=== PATIENT | female | born 1935 | race Caucasian/White ===

== ENCOUNTER → 2018-05-20 13:15 | Outpatient (CLI) | payer MEDICARE, SELFPAY ==
--- NOTE | 2018-05-20 | DI.MRI.S_ITS ---
PROCEDURE: MR LUMBAR SPINE WO CON INDICATIONS: INTERVERTEBRAL DISC DEGENERATION TECHNIQUE: Noncontrast sagittal T1 spin echo and T2 fast echo, sagittal STIR, axial T1 and T2 fast spin echo through the lumbar spine. In cases with scoliosis, additional coronal T2 fast spin echo may be performed. COMPARISON: [facility], , L-SPINE 2-3 VIEWS, 06/17/2013, 10:26. FINDINGS: Image quality: Excellent. Alignment and Curvature: 5 lumbar type vertebral wires are present by plain film. There is loss of normal lumbar lordosis Mild grade 1 retrolisthesis of L1 on L2 and L2 on L3. There is mild grade 1 anterolisthesis of L4 on L5 and L5 on S1. Bone Marrow: Marrow is of normal overall signal. No acute vertebral body compression fractures. Moderate reactive signal within the endplates adjacent to the L1-L2 intervertebral disc. Mild reactive signal within the end plates adjacent to the L2-L3 and L5-S1 intervertebral discs. Posterior fusion at L3-L5 has been performed with paired posterior r rods and pedicle screws. Spinal Cord: Conus medullaris terminates at the lower L1 level. Visualized cord demonstrates normal signal and size. Paraspinous Soft Tissues: No paravertebral masses. L1-L2: Severe disc height loss and desiccation. Mild diffuse disc bulge. Mild facet and ligament flavum hypertrophy bilaterally. Mild canal stenosis. Mild foraminal stenosis bilaterally. L2-L3: Moderate disc loss and desiccation. Moderate diffuse disc bulge with superimposed left paracentral protrusion. Mild facet hypertrophy bilaterally. Moderate canal stenosis. Moderate left and mild right foraminal stenosis. There is impingement upon the left L3 nerve root within the lateral recess. L3-L4: Moderate disc height last. Mild disc desiccation and residual diffuse disc bulge. Status post fusion. Bilateral hypertrophy. No significant canal stenosis. Moderate left and mild right foraminal stenosis. L4-L5: Moderate residual diffuse disc bulge, with superimposed small left paracentral protrusion. Status post fusion. No significant canal stenosis. Moderate left and mild right foraminal stenosis. L5-S1: Moderate disc height loss and desiccation. Moderate diffuse disc bulge/osteophyte. Moderate facet hypertrophy bilaterally. Moderate canal stenosis. Severe bilateral foraminal stenosis. Possible L5 nerve root flattening bilaterally. IMPRESSION: 1. Multilevel degenerative disc and facet disease, as well ligament flavum hypertrophy. 2. Status post L3-L5 fusion. 3. Multilevel canal stenoses, worst at L2-L3 and L5-S1, where there are moderate canal stenoses. 4. Left L3 nerve root impingement at the L2-L3 disc space level; recommend correlation with clinical symptoms to ascertain relevance of this finding. 5. Severe bilateral L5-S1 foraminal stenoses, with possible L5 nerve root impingement bilaterally; recommend correlation with clinical symptoms to ascertain relevant of these findings. Dictated by: Huber Landon M.D. on 05/20/2018 at 15:14 Approved by: Huber Landon M.D. on 05/20/2018 at 15:21
== END ==
PROVIDERS: Visit Provider Physician Assistant
DX: M51.36 Other intervertebral disc degeneration, lumbar region (principal); M48.061 Spinal stenosis, lumbar region without neurogenic claudication; Z98.1 Arthrodesis status
CPT/HCPCS: 72148

== ENCOUNTER → 2019-05-27 14:33 | Outpatient (CLI) | payer MEDICARE, SELFPAY ==
--- NOTE | 2019-05-27 | DI.MG.S_ITS ---
BILATERAL DIGITAL SCREENING MAMMOGRAM 3D/2D WITH CAD: 05/27/2019 CLINICAL: Routine screening. Personal history of left breast cancer. Family history of breast cancer. Comparison is made to exams dated: 04/26/2017 mammogram, 04/25/2016 mammogram - [facility], and 10/10/2013 mammogram - [facility]. The tissue of both breasts is extremely dense, which lowers the sensitivity of mammography. Current study was also evaluated with a Computer Aided Detection (CAD) system. There is an irregular equal density asymmetry with an indistinct margin in the right breast posterior depth inferior region seen on the mediolateral oblique view only. There is architectural distortion associated with the asymmetry. No other significant masses, calcifications, or other findings are seen in either breast. IMPRESSION: INCOMPLETE: NEEDS ADDITIONAL IMAGING EVALUATION The irregular equal density asymmetry in the right breast is indeterminate. Mediolateral and spot compression views as well as additional views with possible ultrasound are recommended. This exam was interpreted at Station ID: [id number]. NOTE: For mammograms, a report in lay terms will be sent to the patient. Approximately 15% of breast malignancies will not be visualized mammographically. In the management of a palpable breast mass, a negative mammogram must not discourage biopsy of a clinically suspicious lesion. Electronically Signed By: Ari gaming/[email or web address]:05/27/2019 16:23:33 letter sent: Additional Imaging Needed ACR BI-RADS Category 0: Incomplete [id number]
== END ==
PROVIDERS: Visit Provider Physician Assistant
DX: Z13.21 Encounter for screening for nutritional disorder (principal); Z80.3 Family history of malignant neoplasm of breast; Z85.3 Personal history of malignant neoplasm of breast
CPT/HCPCS: 77063; 77067

== ENCOUNTER → 2019-06-13 09:39 | Outpatient (CLI) | payer MEDICARE, SELFPAY ==
--- NOTE | 2019-06-13 | DI.MG.S_ITS ---
UNILATERAL RIGHT DIGITAL DIAGNOSTIC MAMMOGRAM 3D/2D WITH ADDITIONAL VIEWS: 06/13/2019 CLINICAL: Additional evaluation requested from prior study. Comparison is made to exams dated: 05/27/2019 mammogram, 04/26/2017 mammogram, and 04/25/2016 mammogram - [facility]. The tissue of right breast is heterogeneously dense. This may lower the sensitivity of mammography. There is an irregular low density asymmetry with an indistinct margin in the right breast posterior depth inferior region seen on the mediolateral oblique view only. This is less prominent. No other significant masses or calcifications are seen in the breast. IMPRESSION: INCOMPLETE: NEEDS ADDITIONAL IMAGING EVALUATION The irregular low density asymmetry in the right breast is indeterminate. An ultrasound is recommended. This exam was interpreted at Station ID: [id number]. NOTE: For mammograms, a report in lay terms will be sent to the patient. Approximately 15% of breast malignancies will not be visualized mammographically. In the management of a palpable breast mass, a negative mammogram must not discourage biopsy of a clinically suspicious lesion. Electronically Signed By: Ari gaming/celina:06/13/2019 11:04:07 ACR BI-RADS Category 0: Incomplete [id number]
--- NOTE | 2019-06-13 | DI.US.S_ITS ---
LIMITED ULTRASOUND OF RIGHT BREAST: 06/13/2019 CLINICAL: Patient returns today to evaluate an architectural distortion in the right breast. Comparison is made to exams dated: 06/13/2019 mammogram, 05/27/2019 mammogram, 04/26/2017 mammogram, 04/26/2017 mammogram, 04/25/2016 mammogram - [facility], and 11/05/2014 mammogram - [facility]. Color flow and real-time ultrasound of the right breast lower aspect and retroareolar regions were performed on the areas of interest. There is a 0.9 cm x 0.7 cm x 0.4 cm oval cyst in the right breast central to the nipple in the retroareolar region. This oval cyst displays internal echoes. Color flow imaging demonstrates that there is no vascularity present. There also is a 0.5 cm x 0.3 cm x 0.3 cm oval cyst in the right breast central to the nipple in the retroareolar region. This oval cyst is hypoechoic with internal echoes. Color flow imaging demonstrates that there is no vascularity present. IMPRESSION: PROBABLY BENIGN The 0.9 cm x 0.7 cm x 0.4 cm oval cyst in the right breast central to the nipple in the retroareolar region is consistent with a complicated cyst and is probably benign. The 0.5 cm x 0.3 cm x 0.3 cm oval cyst in the right breast central to the nipple in the retroareolar region likely represents a complicated cyst and is probably benign. There is no abnormality seen in the right breast to correspond with the mammography finding in the lower aspect. A follow-up mammogram and an ultrasound in 3 months is recommended. This exam was interpreted at Station ID: [id number]. Electronically Signed By: Ari gaming/celina:06/13/2019 12:06:47 letter sent: Followup Recommended Ultrasound BI-RADS: 3 Probably benign
== END ==
PROVIDERS: PCP Physician Assistant; Visit Provider Physician Assistant
DX: R92.8 Other abnormal and inconclusive findings on diagnostic imaging of breast (principal); N60.01 Solitary cyst of right breast
CPT/HCPCS: 76642; 77065; G0279

== ENCOUNTER → 2020-11-24 08:34 | Outpatient (CLI) | payer MEDICARE, SELFPAY ==
--- NOTE | 2020-11-24 08:38 | DI.RAD.S_ITS ---
PROCEDURE: XR LUMBAR SPINE MIN 4V INDICATIONS: BACK PAIN TECHNIQUE: 5 views of the lumbar spine were acquired, including bilateral oblique views. COMPARISON: [facility], , L-SPINE 2-3 VIEWS, 06/17/2013, 10:26. FINDINGS: Bones: No fracture. Multilevel degenerative endplate sclerosis and spurring. Diffuse facet arthropathy. L3-L5 posterior spinal fixation. Expected alignment. Interbody cage grafts at L3-L4 and L4-L5. Focal kyphosis centered at the L1 level. Severe narrowing of the remaining lower thoracic and upper lumbar spaces. Levocurvature centered at L1. Soft tissues: Bilateral abdominal soft tissue calcifications projecting the region of the kidneys raising possibility of nephrolithiasis although this could be confirmed with CT KUB. Oblique images: No pars defects. IMPRESSION: Postsurgical and degenerative changes as above. Interval progression in lumbar spondylitic changes since 06/17/13. Dictated by: Navid Anne M.D. on 11/24/2020 at 10:17 Approved by: Navid Anne M.D. on 11/24/2020 at 10:20
== END ==
PROVIDERS: PCP Student in an Organized Health Care Education/Training Program; Referring Provider Physical Medicine & Rehabilitation; Visit Provider Physical Medicine & Rehabilitation
DX: M54.9 Dorsalgia, unspecified (principal); M47.816 Spondylosis without myelopathy or radiculopathy, lumbar region; M51.26 Other intervertebral disc displacement, lumbar region; R26.81 Unsteadiness on feet; Z98.1 Arthrodesis status
CPT/HCPCS: 72110; 99213

== ENCOUNTER → 2020-12-06 14:00 | Outpatient (CLI) | payer MEDICARE, SELFPAY ==
[2020-12-06 15:59] LABS: COVID19 -Nasal RAPID Negative (Negative)
== END ==
PROVIDERS: PCP Student in an Organized Health Care Education/Training Program; Visit Provider Physical Medicine & Rehabilitation
DX: Z20.822 Contact with and (suspected) exposure to COVID-19 (principal)
CPT/HCPCS: 87635

== ENCOUNTER 2020-12-07 12:50 | Outpatient (CLI) | payer MEDICARE, SELFPAY ==
[2020-12-07] VITALS (8 sets, daily range): BP systolic 121–167; BP diastolic 58–74; PULSE 76–94; RESP 12–17; TEMP 36.6; O2SAT 94–99
--- NOTE | 2020-12-07 12:53 | DI.RAD.S_ITS ---
PROCEDURE: PAIN L INTERLAMINAR/CAUDAL INJ INDICATIONS: SPONDYLOSIS COMPARISON: None. FINDINGS: Fluoroscopic spot filming was performed to verify placement of spinal needles at the L5-S1 level(s), as labeled on the films. Appropriate location(s) of the needle tip(s) was confirmed by injection of iodinated contrast. IMPRESSION: Midline L5-S1 needle tip localization for interlaminar epidural steroid injection. Dictated by: Hiren Ventura M.D. on 12/07/2020 at 13:44 Approved by: Hiren Ventura M.D. on 12/07/2020 at 13:44
[2020-12-07] MEDS: MIDAZOLAM 5 MG/5 ML VIAL IV (13:46)
[2020-12-07] MEDS: fentaNYL 100 MCG/2 ML INJ 50 MCG IV (13:50)
[2020-12-07] MEDS: BETAMETHASONE 30 MG/5 ML MDV 6 MG INJ (13:53)
[2020-12-07] MEDS: IOPAMIDOL 15 ML VIAL 3 ML INJ (13:53)
[2020-12-07] MEDS: BUPIVACAINE 0.25% (PF) VIAL 2 ML INJ (13:53)
[2020-12-07] MEDS: DEXAMETHASONE 10 MG/ML VIAL 20 MG INJ (13:54)
--- NOTE | 2020-12-07 14:03 | PM.PROC.IR.1 ---
Date/Time/Diagnoses Date of procedure: 12/07/20 Time of procedure: 14:03 Pre-procedure diagnosis: 1. HNP WITH RADICULAR FEATURES, 2. MULTILEVEL CENTRAL STENOSIS, Post-procedure diagnosis: same Procedure Notes Procedure: 1. FLUOROSCOPICALLY GUIDED CONTRAST CONTROLLED INTERLAMINAR EPIDURAL STEROID INJECTION - L5/S1 Indications: Marlen is referred by Arnav Martines for treatment of Bilateral Foraminal Stenosis L>R LE symptoms. Physician: Huey Simms Total Fluoroscopy time (seconds): 6 Total sedation minutes: 11 Complications: none Procedure in detail & Post-procedure care: FINDINGS Multilevel Central Spinal Stenosis with Nerve Root Compression DESCRIPTION OF PROCEDURE Fluoroscopically guided, contrast-controlled L5/S1 translaminar epidural steroid injection. Following review of allergy and review of potential side effects and complications, including, but not necessarily limited to, infection, allergic reaction, local tissue breakdown, temporary as well as permanent nerve injury, paralysis, stroke and possible , the patient indicated that the patient understood and agreed to proceed. An informed consent document was signed by the patient, witnessed by a nurse, and placed in the patient's chart. Additionally, other treatment options including modalities, medications, and physical therapy were reviewed with the patient. After review of previous anaesthesic history and IV conscious sedation the patient was deemed safe to proceed with today?s procedure with IV conscious sedation as ASA class II designation. Safety time-out was performed to confirm patient ID, procedure to be performed and site of procedure. IV sedation was accomplished with a combination of 2mg of Versed and 50mcg of Fentanyl administered by the RN after DO order, titrated to patient comfort during the course of the procedure while the patient remained responsive to all verbal commands. In the prone position, following sterile prep and drape of the lumbar region, the L5/S1 translaminar space was identified fluoroscopically. The skin was anesthetized via a 25-gauge, 1.5-inch needle with 1% lidocaine solution. At this point, a 22-gauge short bevel spinal needle was atraumatically introduced and advanced under fluoroscopic guidance into the region of the L5/S1 translaminar space. Depth was confirmed on lateral view. Radiological data, including multiple fluoroscopic views of the lumbar spine, reveal a spinal needle at the L5/S1 translaminar space. Lateral views then show placement of the needle in the epidural space. Subsequent views show contrast material flowing superiorly and inferiorly in the epidural space. No vascular or intrathecal uptake is observed. At this point, using loss of resistance technique with saline and air, the epidural space was entered. This was confirmed following negative aspiration with injection of approximately 1.5cc of Isovue 200, showing excellent epidural flow without vascular or intrathecal uptake. At this point, 1 cc of 1% lidocaine solution combined with 3cc or 20mg of dexamethasone and 6mg of betamethasone was injected without incident. The patent tolerated the procedure without signs of symptoms of complications prior to transfer to the recovery area for further monitoring. The patient was then transferred to the recovery area where they were observed for an appropriate period of time after the injection. The patient reported a VAS score of 6 prior to the procedure and a post-procedure VAS of 0. POST OP INSTRUCTIONS The patient was provided a Pain Log to continue to record their response to the target-specific procedure prior to follow-up visit with their referring physician. Additionally, specific post-injection care instructions and a contact number to our office were provided if concerns arise regarding possible complications associated with the procedure are suspected.
== END 2020-12-07 14:22 | disposition home or self-care (01) ==
LOC: RAD 12:52
PROVIDERS: PCP Student in an Organized Health Care Education/Training Program; Referring Provider Physical Medicine & Rehabilitation; Visit Provider Physical Medicine & Rehabilitation
DX: M51.17 Intervertebral disc disorders with radiculopathy, lumbosacral region (principal); M48.07 Spinal stenosis, lumbosacral region
CPT/HCPCS: 62323; 99152; J0702; J1100; J2250; J3010

== ENCOUNTER → 2021-02-15 07:01 | Outpatient (CLI) | payer MEDICARE, SELFPAY ==
[2021-02-15 12:43] LABS: COVID19 -Nasal RAPID Negative (Negative)
== END ==
PROVIDERS: PCP Student in an Organized Health Care Education/Training Program; Visit Provider Physical Medicine & Rehabilitation
DX: Z20.822 Contact with and (suspected) exposure to COVID-19 (principal)
CPT/HCPCS: 87635

== ENCOUNTER 2021-02-17 14:09 | Outpatient (CLI) | payer MEDICARE, SELFPAY ==
[2021-02-17] VITALS (10 sets, daily range): BP systolic 118–157; BP diastolic 64–90; PULSE 77–90; RESP 14–22; TEMP 36.3–36.6; O2SAT 96–100
--- NOTE | 2021-02-17 14:12 | DI.RAD.S_ITS ---
PROCEDURE: PAIN L/S FACET INJ/BLK 1ST EUGENIO COMPARISON: None. INDICATIONS: SPONDYLOSIS FINDINGS: Fluoroscopic spot filming was performed to verify placement of spinal needles at the L2-L3, L5-S1 level(s), as labeled on the films. Appropriate location(s) of the needle tip(s) was confirmed by injection of iodinated contrast. Dictated by: Navid Anne M.D. on 02/17/2021 at 17:28 Approved by: Navid Anne M.D. on 02/17/2021 at 17:29
[2021-02-17] MEDS: fentaNYL 100 MCG/2 ML INJ 50 MCG IV (15:02)
[2021-02-17] MEDS: MIDAZOLAM 5 MG/5 ML VIAL IV (15:02)
[2021-02-17] MEDS: LIDOCAINE 1% 20 ML 10 ML INJ (15:15)
[2021-02-17] MEDS: BUPIVACAINE 0.5% (PF) VIAL 5 ML INJ (15:16)
[2021-02-17] MEDS: IOPAMIDOL 15 ML VIAL 3 ML INJ (15:16)
[2021-02-17] MEDS: BETAMETHASONE 30 MG/5 ML MDV 12 MG INJ (15:16)
--- NOTE | 2021-02-17 15:27 | P.PCN_ITS ---
Date/Time/Diagnoses Date of procedure: 02/17/21 Time of procedure: 15:27 Pre-procedure diagnosis: 1. FACET ARTHROPATHY 2. AXIAL LBP 3. MULTILEVEL DDD Post-procedure diagnosis: same Procedure Notes Procedure: 1. FLUOROSCOPICALLY GUIDED CONTRAST CONTROLLED FACET JOINT INJECTIONS BILATERAL L2/3, L5/S1 Indications: Marlen is referred by DILIP Martinse for treatment of Axial LBP Physician: Huey Simms Total Fluoroscopy time (seconds): 17 Total sedation minutes: 18 Complications: none Procedure in detail & Post-procedure care: FINDINGS Multilevel Facet Arthropathy with Clinically significant axial LBP DESCRIPTION OF PROCEDURE Fluoroscopically guided, contrast-controlled bilateral L2/3, L5/S1 facet joint injections. Following review of allergy and review of potential side effects and complications, including, but not necessarily limited to, infection, allergic reaction, local tissue breakdown, stroke, temporary or permanent nerve injury, paralysis, and possible , the patient indicated that the patient understood and agreed to proceed. An informed consent document was signed by the patient, witnessed by a nurse, and placed in the patient's chart. Additionally, other treatment options including medications, modalities, and physical therapy were reviewed with the patient. After review of previous anaesthesic history and IV conscious sedation the patient was deemed safe to proceed with today's procedure with IV conscious sedation as ASA class II designation. Safety time-out was performed to confirm patient ID, procedure to be performed and site of procedure. IV sedation was accomplished with a combination of 2mg of Versed and 50mcg of Fentanyl was administered by the RN after DO order, titrated to patient comfort during the course of the procedure while the patient remained responsive to all verbal commands. In the prone position, following sterile prep and drape of the lumbar region, the posterior aspect of the right L2/3, L5/S1 facet joints were identified fluoroscopically. The skin was anesthetized via a 25-gauge 1.5inch needle with 1% lidocaine solution into the corresponding facet joints. At this point, a 22- gauge 3.5-inch spinal needle was atraumatically introduced and advanced under fluoroscopic guidance into the corresponding facet joints. Following negative aspiration, injections of approximately 0.2cc of Isovue 200 confirmed interarticular placement without vascular uptake. The identical procedure was then performed at the L2/3, L5/S1 facet joints on the left. Radiological data, including multiple fluoroscopic views of the lumbosacral spine, reveal a spinal needle at the L2/3, L5/S1 facet joints bilaterally. Subsequent views show flow of contrast material both superiorly and inferiorly within the joint space without vascular or intrathecal uptake. At this point, a total of 0.5cc including a mixture of 0.25cc Marcaine and 0.25cc betamethasone was injected without complication into each of the correspo nding facet joints. The patient tolerated the procedure well without signs or symptoms of complications prior to transfer to the recovery area continued monitoring without incident. The patient was then transferred to the recovery area where they were observed for an appropriate period of time after the injection. The patient reported a VAS score of 7 prior to the procedure and a post-procedure VAS of 0. POST OP INSTRUCTIONS The patient was provided a Pain Log to continue to record their response to the target-specific procedure prior to follow-up visit with their referring physician. Additionally, specific post-injection care instructions and a contact number to our office were provided if concerns arise regarding possible complications associated with the procedure are suspected.
== END 2021-02-17 15:36 | disposition home or self-care (01) ==
PROVIDERS: PCP Student in an Organized Health Care Education/Training Program; Referring Provider Physical Medicine & Rehabilitation; Visit Provider Physical Medicine & Rehabilitation
DX: M47.816 Spondylosis without myelopathy or radiculopathy, lumbar region (principal); M47.817 Spondylosis without myelopathy or radiculopathy, lumbosacral region; M51.36 Other intervertebral disc degeneration, lumbar region; M51.37 Other intervertebral disc degeneration, lumbosacral region; M54.5 Low back pain
CPT/HCPCS: 64493; 64494; 99152; J0702; J2250; J3010

== ENCOUNTER → 2021-05-10 07:30 | Outpatient (CLI) | payer MEDICARE, SELFPAY ==
[2021-05-10 13:22] LABS: COVID19 -Nasal RAPID Negative (Negative)
== END ==
PROVIDERS: PCP Student in an Organized Health Care Education/Training Program; Visit Provider Physical Medicine & Rehabilitation
DX: Z20.822 Contact with and (suspected) exposure to COVID-19 (principal)
CPT/HCPCS: 87635; C9803

== ENCOUNTER 2021-05-12 10:43 | Outpatient (CLI) | payer MEDICARE, SELFPAY ==
[2021-05-12] VITALS (8 sets, daily range): BP systolic 149–164; BP diastolic 60–76; PULSE 74–85; RESP 15–21; TEMP 36.4–37.2; O2SAT 93–98
--- NOTE | 2021-05-12 10:46 | DI.RAD.S_ITS ---
PROCEDURE: PAIN SI JOINT INJECTION EUGENIO COMPARISON: [facility], XA, PAIN L/S FACET INJ/BLK 1ST EUGENIO, 02/17/2021, 15:08. INDICATIONS: Bilateral sacroiliac joint injection FINDINGS: On these intraprocedural images, spinal needles are seen overlying the inferior aspect of the each sacroiliac joint. Appropriate position of the tips of the needle was confirmed by injection of a small amount of iodinated contrast. IMPRESSION: Intraprocedural examination within normal limits. Dictated by: Cayetano Negron M.D. on 05/12/2021 at 11:58 Approved by: Cayetano Negron M.D. on 05/12/2021 at 11:58
[2021-05-12] MEDS: MIDAZOLAM 5 MG/5 ML VIAL IV (11:32)
[2021-05-12] MEDS: fentaNYL 100 MCG/2 ML INJ 50 MCG IV (11:32)
[2021-05-12] MEDS: BUPIVACAINE 0.5% (PF) VIAL 2 ML INJ (11:39)
[2021-05-12] MEDS: IOPAMIDOL 15 ML VIAL 3 ML INJ (11:39)
[2021-05-12] MEDS: BETAMETHASONE 30 MG/5 ML MDV 6 MG INJ (11:40)
--- NOTE | 2021-05-12 11:46 | PM.PROC.IR.1 ---
Date/Time/Diagnoses Date of procedure: 05/12/21 Time of procedure: 11:47 Pre-procedure diagnosis: Sacroiliac joint pain/DJD Post-procedure diagnosis: same Procedure Notes Procedure: Fluoroscopic guided contrast controlled bilateral sacroiliac joint injection Indications: Marlen is referred by Arnav Martines for treatment of bilateral sacroiliac joint DJD Physician: Huey Simms Total Fluoroscopy time (seconds): 16 Total sedation minutes: 12 Complications: none Procedure in detail & Post-procedure care: Description of procedure Fluoroscopic guided, contrast controlled bilateral sacroiliac joint injection Following review of allergies and review of potential side effects and complications, including, but not necessarily limited to, infection, allergic reaction, local tissue breakdown, temporary as well as permanent nerve injury, paralysis, stroke and possible , the patient indicated that they understood and agreed to proceed. An informed consent was signed by the patient, witnessed by a nurse, and placed in the patient's chart. Additionally, other treatment options including modalities, medications, and physical therapy were reviewed with the patient. After review of previous anaesthesic history and IV conscious sedation the patient was deemed safe to proceed with today?s procedure with IV conscious sedation as ASA class II designation. Safety time-out was performed to confirm patient ID, procedure to be performed and site of procedure. IV sedation was accomplished with a combination of 2mg Versed and 50mcg of Fentanyl were administered by the RN after DO order, titrated to patient comfort during the course of the procedure while the patient remained responsive to all verbal commands In the prone position following sterile prep and drape of the pelvic region, the hyper lucency on in the inferior aspect of the sacroiliac joint was identified fluoroscopically the skin was anesthetized be a 25 gauge 1.5 inch needle with approximately 2cc of 1% lidocaine solution. At this point, a 22 gauge 3 in spinal needle was atraumatically introduced and advanced under fluoroscopic guidance into the inferior aspect of the right sacroiliac joint. Following negative aspiration, approximately 0.3cc of Isovue-300 was injected confirming intra-articular placement without vascular uptake. Radiographic data, including multiple fluoroscopic views of the pelvis, reveals a spinal needle in the sacroiliac joint hyper lucent zone. Subsequent view show flow contrast tear superiorly and inferiorly within the joint capsule without vascular intrathecal uptake. At this point a total of 1cc of 0.5% Marcaine was combined with 1cc of 6mg of betamethasone was injected without incident. Attention was then refocused the left sacroiliac joint where the procedure was replicated. The procedure tolerated the procedure well without signs or symptoms of complications prior to transfer to the recovery area continued monitoring without incident. The patient was then transferred to the recovery area with a bur observed for an appropriate time after the injection. The patient reverted a vas score of 7 prior to the procedure and post-procedure vas of 1. Postop instructions The patient was provided with a pain like to continue to record the patient's response to the target specific procedure prior to the patient's follow-up visit with the referring physician. Additionally, specific post injection care instructions and a contact number to our office were provided if concerns arise regarding the possible complications associated with procedure are suspected.
== END 2021-05-12 12:05 | disposition home or self-care (01) ==
LOC: RAD 10:46
PROVIDERS: PCP Student in an Organized Health Care Education/Training Program; Referring Provider Physical Medicine & Rehabilitation; Visit Provider Physical Medicine & Rehabilitation
DX: M53.3 Sacrococcygeal disorders, not elsewhere classified (principal); M46.1 Sacroiliitis, not elsewhere classified
CPT/HCPCS: 27096; 99152; J0702; J2250; J3010

== ENCOUNTER → 2021-10-03 10:36 | Outpatient (CLI) | payer MEDICARE, SELFPAY ==
[2021-10-03 13:51] LABS: COVID19 -Nasal RAPID Negative (Negative)
== END ==
PROVIDERS: PCP Student in an Organized Health Care Education/Training Program; Referring Provider Physical Medicine & Rehabilitation; Visit Provider Physical Medicine & Rehabilitation
DX: Z20.822 Contact with and (suspected) exposure to COVID-19 (principal)
CPT/HCPCS: 87635; C9803

== ENCOUNTER 2021-10-04 10:06 | Outpatient (CLI) | payer MEDICARE, SELFPAY ==
[2021-10-04] VITALS (10 sets, daily range): BP systolic 143–163; BP diastolic 65–82; PULSE 80–86; RESP 13–21; TEMP 37.1; O2SAT 95–100
--- NOTE | 2021-10-04 10:08 | DI.RAD.S_ITS ---
PROCEDURE: PAIN L/S FACET INJ/BLK 1ST EUGENIO COMPARISON: [facility], , PAIN L/S FACET INJ/BLK 1ST EGUENIO, 02/17/2021, 15:08. INDICATIONS: SPONDYLOSIS FINDINGS: Fluoroscopic spot filming was performed to verify placement of spinal needles on both sides at the L2, L3, L5, and S1 levels, as labeled on the films. Appropriate location of the needle tips was confirmed by injection of iodinated contrast. IMPRESSION: Intraprocedural examination within normal limits. Dictated by: Cayetano Negron M.D. on 10/04/2021 at 12:49 Approved by: Cayetano Negron M.D. on 10/04/2021 at 12:50
[2021-10-04] MEDS: fentaNYL 100 MCG/2 ML INJ 50 MCG IV (11:20)
[2021-10-04] MEDS: IOPAMIDOL 15 ML VIAL 3 ML INJ (11:26)
[2021-10-04] MEDS: BUPIVACAINE 0.5% (PF) VIAL 5 ML INJ (11:26)
[2021-10-04] MEDS: LIDOCAINE 1% 20 ML INJ (11:27)
[2021-10-04] MEDS: MIDAZOLAM 5 MG/5 ML VIAL IV (11:31)
--- NOTE | 2021-10-04 11:53 | PM.PROC.IR.1 ---
Date/Time/Diagnoses Date of procedure: 10/04/21 Time of procedure: 11:53 Pre-procedure diagnosis: 1. FACET ARTHROPATHY Post-procedure diagnosis: same Procedure Notes Procedure: 1. BILATERAL- L4, L5 and S1 DIAGNOSTIC MB BLOCKS with LA Anesthetic Indications: Marlen is referred by Binta Martines for treatment of Bilateral Axial LBP. Physician: Huey Simms Total Fluoroscopy time (seconds): 18 Total sedation minutes: 19 Complications: none Procedure in detail & Post-procedure care: DESCRIPTION OF PROCEDURE Fluoroscopically guided, contrast-controlled bilateral L2, L3, L5 and S1 medial branch blocks with 0.5cc of 0.5% Marcaine. Following review of allergy and review of potential side effects and complications, including, but not necessarily limited to, infection, allergic reaction, local tissue breakdown, nerve injury, paralysis, stroke and possible , the patient indicated that the patient understood and agreed to proceed. An informed consent document was signed by the patient, witnessed by a nurse, and placed in the patient's chart. After review of previous anaesthesic history and IV conscious sedation the patient was deemed safe to proceed with today's procedure with IV conscious sedation as ASA class II designation. Safety time-out was performed to confirm patient ID, procedure to be performed and site of procedure. IV sedation was accomplished with a combination of 4mg of Versed and 50mcg of Fentanyl was administered by the RN after DO order, titrated to patient comfort during the course of the procedure while the patient remained responsive to all verbal commands In the prone position, following sterile prep and drape of the lumbar region, the right L2, L3, L5 and S1 anatomical location of the medial branch of the dorsal ramus was identified fluoroscopically. Subsequently an anesthetic skin wheal using 1% lidocaine solution was initiated at each of the anatomical spots. Subsequently then a 22-gauge 3.5-inch spinal needle was atraumatically introduced and advanced under fluoroscopic guidance at each of the corresponding sites at the right L2, L3, L5 and S1 MB. After negative aspiration, 0.2cc of Isovue 200 was injected, confirming placement without vascular or intrathecal uptake. Subsequently then 0.5cc of 0.5% Marcaine solution was injected at each of the corresponding sites at the right L2, L3, L5 and S1 medial branch locations. The identical procedure was replicated on the left. The patient tolerated the procedure well without signs or symptoms of complications prior to transfer to the recovery area continued monitoring without incident. Post-procedure, the patient was monitored initiating provocative activities to measure the amount of relief from block of the facetogenic pain. The patient reported a VAS of 7 prior to the procedure and a post-procedure VAS of 1. It has been a pleasure to assist in the diagnostic and therapeutic care of your patient. POST OP INSTRUCTIONS The patient was provided with a Pain Log to complete over the next several hours and subsequent days prior to the patient's follow up with the ordering physician. 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 The patient is aware, was provided, once again, with a Pain Log and will follow up with the referring physician for review and clinical correlation
== END 2021-10-04 12:02 | disposition home or self-care (01) ==
PROVIDERS: PCP Student in an Organized Health Care Education/Training Program; Referring Provider Physical Medicine & Rehabilitation; Visit Provider Physical Medicine & Rehabilitation
DX: M47.816 Spondylosis without myelopathy or radiculopathy, lumbar region (principal); M47.817 Spondylosis without myelopathy or radiculopathy, lumbosacral region
CPT/HCPCS: 64493; 64494; 99152; J2250; J3010

== ENCOUNTER → 2021-12-12 10:51 | Outpatient (CLI) | payer OTHER, SELFPAY ==
[2021-12-12 15:09] LABS: COVID19 -Nasal RAPID Negative (Negative)
== END ==
PROVIDERS: PCP Student in an Organized Health Care Education/Training Program; Visit Provider Physical Medicine & Rehabilitation
DX: Z20.822 Contact with and (suspected) exposure to COVID-19 (principal)
CPT/HCPCS: 87635; C9803

== ENCOUNTER 2021-12-13 10:39 | Outpatient (CLI) | payer OTHER, SELFPAY ==
[2021-12-13] VITALS (13 sets, daily range): BP systolic 136–169; BP diastolic 63–88; PULSE 80–90; RESP 12–23; TEMP 36.2; O2SAT 93–99
--- NOTE | 2021-12-13 10:40 | DI.RAD.S_ITS ---
PROCEDURE: PAIN L/S MED/LAT N RFA BILAT INDICATIONS: Spondylosis COMPARISON: [facility], , PAIN L/S FACET INJ/BLK 1ST EUGENIO, 10/04/2021, 12:26. FINDINGS: Fluoroscopic spot filming was performed to verify placement of spinal needles on both sides at the L2, L3, L5, and S1 levels, as labeled on the films. IMPRESSION: Intraprocedural examination within normal limits. Dictated by: Cayetano Negron M.D. on 12/13/2021 at 12:00 Approved by: Cayetano Negron M.D. on 12/13/2021 at 12:01
[2021-12-13] MEDS: fentaNYL 250 MCG/5 ML INJ 50 MCG IV (11:33)
[2021-12-13] MEDS: BUPIVACAINE 0.5% (PF) VIAL 5 ML INJ (11:36)
[2021-12-13] MEDS: LIDOCAINE 1% 20 ML (11:36)
[2021-12-13] MEDS: fentaNYL 250 MCG/5 ML INJ (11:56)
[2021-12-13] MEDS: MIDAZOLAM 5 MG/5 ML VIAL IV (11:56)
--- NOTE | 2021-12-13 12:26 | P.PCN_ITS ---
Date/Time/Diagnoses Date of procedure: 12/13/21 Time of procedure: 12:26 Pre-procedure diagnosis: 1. RECALCITRANT FACET ARTHROPATHY Post-procedure diagnosis: same Procedure Notes Procedure: 1. BILATERAL L2, L3 AND L5 MEDIAL BRANCH RADIOFREQUENCY NEUROTOMY AND S1 DORSAL RAMUS BRANCH RADIOFREQUENCY NEUROTOMY Indications: Marlen is referred by DILIP Martines for treatment of facet arthropathy. Physician: Huey Simms Total Fluoroscopy time (seconds): 28 Total sedation minutes: 41 Complications: none Procedure in detail & Post-procedure care: DESCRIPTION OF PROCEDURE Bilateral L2, L3 and L5 medial branch radiofrequency neurotomy and bilateral S1 dorsal ramus radiofrequency neurotomy under fluoroscopy with conscious sedation. The patient is well known to this clinic having undergone previous facet in jections with good but temporary relief. The patient has experienced appropriate, concordant relief with previous facet and median branch blocks but the patient's pain has been recalcitrant to further conservative measures. Therefore, based upon the patient's relief and persistent symptoms, the patient is considered an appropriate candidate for facet rhizotomy. All of the patient's questions regarding the risks versus benefits of the procedure, including, but not limited to, bleeding, infection, temporary as well as lasting nerve injury, paralysis, stroke, and , as well treatment alternatives were answered to satisfaction. After obtaining informed consent, denial of pertinent drug allergies, as well as being made aware of the potential risks of bleeding, infection, spinal cord t rauma, paralysis, temporary and permanent nerve damage, seizure, stroke, and possible , the patient was brought to the fluoroscopy suite and positioned prone on the fluoroscopy table. The lumbar region was prepped with Betadine and covered with a fenestrated drape in the usual sterile fashion. Appropriate monitors applied including pulse oximeter, pulse, and blood pressure for regular monitoring throughout the procedure. After review of previous anaesthesic history and IV conscious sedation the patient was deemed safe to proceed with today's procedure with IV conscious sedation as ASA class II designation. Safety time-out was performed toconfirm patient ID, procedure to be performed and site of procedure. IV sedation was accomplished with a combination of 4mg of Versed and 100mcg of Fentanyl administered by the RN after DO order, titrated to patient comfort during the course of the procedure while the patient remained responsive to all verbal commands. After local infiltration using 1% lidocaine, under fluoroscopic guidance, a 10- cm RF insulated needle with a 10-mm active tip was positioned parallel to the junction of the right sacral ala and the superior articulating process where the S1 dorsal ramus resides. Needle placement was confirmed with motor stimulation of .5v on the right which produced local stimulation without radicular component. The stimulation was then increased to 2v with, once again, only local multifidus stimulation without radicular component. The needle was then removed and the identical procedure was performed along the length of the right L5 medial branch with motor stimulation at .7v on the right. The identical procedure was once again performed along the length of the right L3 medial branch with motor stimulation of .5v on the right. The identical procedure was once again performed along the length of the right L2 medial branch with motor stimulation of .5v on the right.The medial branches were then anesthetised with 0.5% Marcaine. This was then followed by two discreet lesions performed at 80 degrees Celsius for 90 seconds each. The identical procedure was repeated on the left. The patient tolerated the procedure well without signs or symptoms of complications prior to transfer to the recovery area continued monitoring without incident. The patient was then transferred to the recovery area where they were observed for an appropriate period of time after the injection. The patient reported a VAS score of 9 prior to the procedure and a post-procedure VAS of 0. POST OP INSTRUCTIONS The patient was provided a Pain Log to continue to record the patient's response to the target-specific procedure prior to the patient's follow-up visit with the referring physician. Additionally, specific post-injection care instructions and a contact number to our office were provided if concerns arise regarding possible complications associated with the procedure are suspected.
== END 2021-12-13 12:35 | disposition hospice, home (50) ==
PROVIDERS: PCP Student in an Organized Health Care Education/Training Program; Referring Provider Physical Medicine & Rehabilitation; Visit Provider Physical Medicine & Rehabilitation
DX: M47.816 Spondylosis without myelopathy or radiculopathy, lumbar region (principal); M47.817 Spondylosis without myelopathy or radiculopathy, lumbosacral region
CPT/HCPCS: 64635; 64636; 99152; 99153; J2250; J3010

== ENCOUNTER → 2022-03-27 09:24 | Outpatient (CLI) | payer OTHER, SELFPAY ==
--- NOTE | 2022-03-27 09:25 | DI.MRI.S_ITS ---
PROCEDURE: MR LUMBAR SPINE WO CON INDICATIONS: Low back TECHNIQUE: Noncontrast sagittal T1 spin echo and T2 fast echo, sagittal STIR, and T2 fast spin echo through the lumbar spine. In cases with scoliosis, additional coronal T2 fast spin echo may be performed. COMPARISON: [facility], MR, MR LUMBAR SPINE WO CON, 05/20/2018, 13:34. FINDINGS: Image quality: Excellent. Alignment and Curvature: Grade 1 anterior spondylolisthesis present at L4-5. Bone Marrow: Discectomy and fusion at L3-4 and L4-5 with posterior zeynep and screw instrumentation as well as decompressive laminectomy at L3-4 and L4-5 remains unchanged. T11 vertebral hemangioma remains unchanged. Spinal Cord: Conus medullaris terminates appropriately L1. There is a posterolateral right defect in the thecal sac at the L4 level with associated CSF-jayla in the soft tissues measuring 1.4 x 1.1 cm, previously 1.0 x 1.0 cm. Additionally, nerve roots are adherent to the thecal sac wall at the L5 level, similar to the prior exam. Paraspinous Soft Tissues: As above. T12-L1: Disc space narrowing with circumferential disc bulge and hypertrophic facet joints results in moderate central stenosis. Moderate bilateral foraminal stenosis is greater on the right. L1-L2: Disc space narrowing with asymmetric right disc bulge and hypertrophic facet joints results in moderate central stenosis. Mild bilateral foraminal stenosis. L2-L3: Disc space narrowing with circumferential disc bulge and hypertrophic facet joints present. There is a left subarticular disc protrusion with inferior migration filling the left lateral recess, similar to the prior exam. Disc fragment now shows increased T2 signal. Moderate central stenosis Moderate left and mild right foraminal stenosis present. L3-L4: Discectomy and fusion with decompressive laminectomy. Posterolateral right CSF-jayla noted as above. No central stenosis. No right and moderate left foraminal stenosis present. L4-L5: Discectomy and fusion present. And decompressive laminectomy noted. No central stenosis. Moderate bilateral foraminal stenosis present. L5-S1: Disc space narrowing and circumferential disc bulge present. No central stenosis. Severe right and left foraminal stenosis present IMPRESSION: 1. Overall, study is similar to the prior exam. Similar degrees of central and foraminal stenosis include moderate central stenosis at L2-3 and severe bilateral foraminal stenosis at L5-S1. 2. Focal subarticular left disc protrusion/extrusion at L2-3 effaces the left lateral recess, similar to the prior. Disc fragment now shows increased T2 signal. 3. L3-4 and L4-5 discectomy and fusion with posterior zeynep and screw instrumentation and decompressive laminectomy unchanged. Defect in the posterolateral thecal sac with associated CSF-jayla in the adjacent soft tissues is slightly larger than the prior exam. 4. 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 Approved by: Sheng Hopkins M.D. on 03/27/2022 at 10:42
== END ==
PROVIDERS: PCP Student in an Organized Health Care Education/Training Program; Referring Provider Physical Medicine & Rehabilitation; Visit Provider Physical Medicine & Rehabilitation
DX: M51.26 Other intervertebral disc displacement, lumbar region (principal); M48.061 Spinal stenosis, lumbar region without neurogenic claudication; M48.07 Spinal stenosis, lumbosacral region; Z98.1 Arthrodesis status
CPT/HCPCS: 72148

== ENCOUNTER → 2022-05-22 11:23 | Outpatient (CLI) | payer OTHER, SELFPAY ==
[2022-05-22 12:25] LABS: COVID19 -Nasal RAPID Negative (Negative)
== END ==
PROVIDERS: PCP Student in an Organized Health Care Education/Training Program; Referring Provider Physical Medicine & Rehabilitation; Visit Provider Physical Medicine & Rehabilitation
DX: Z20.822 Contact with and (suspected) exposure to COVID-19 (principal)
CPT/HCPCS: 87635; C9803

== ENCOUNTER 2022-05-23 15:20 | Outpatient (CLI) | payer OTHER, SELFPAY ==
[2022-05-23] VITALS (24 sets, daily range): BP systolic 138–240; BP diastolic 64–128; PULSE 81–145; RESP 15–28; TEMP 36.6; O2SAT 93–100
--- NOTE | 2022-05-23 15:22 | DI.RAD.S_ITS ---
PROCEDURE: PAIN L INTERLAMINAR/CAUDAL INJ INDICATIONS: SPONDYLOSIS COMPARISON: [facility], XA, PAIN L INTERLAMINAR/CAUDAL INJ, 12/07/2020, 13:49. FINDINGS: Fluoroscopic spot filming was performed to verify placement of spinal needles at the lumbar level(s), as labeled on the films. Appropriate location(s) of the needle tip(s) was confirmed by injection of iodinated contrast. IMPRESSION: Needle placement as above Dictated by: Huber Landon M.D. on 05/23/2022 at 17:00 Approved by: Huber Landon M.D. on 05/23/2022 at 17:00
[2022-05-23] MEDS: BUPIVACAINE 0.25% (PF) VIAL 2 ML INJ (16:05)
[2022-05-23] MEDS: BETAMETHASONE 30 MG/5 ML MDV 6 MG INJ (16:05)
[2022-05-23] MEDS: IOPAMIDOL 15 ML VIAL 3 ML INJ (16:05)
[2022-05-23] MEDS: DEXAMETHASONE 10 MG/ML VIAL 20 MG INJ (16:06)
[2022-05-23] MEDS: MIDAZOLAM 2 MG/2 ML VIAL 4 MG IV (16:11)
[2022-05-23] MEDS: fentaNYL 100 MCG/2 ML INJ IV (16:35)
[2022-05-23] MEDS: diphenhydrAMINE 50 MG/ML VIAL IM (16:35)
[2022-05-23] MEDS: LABETALOL 20 MG/4 ML SYRINGE 5 MG IV ×2 (16:50→17:04)
--- NOTE | 2022-05-23 17:01 | PC.NURSE ---
Patient arrived back to recovery room was a 2max assist with transfer from w/c to chair reports legs feel weak. Rated pain 2/10. Patient was hypertensive and tachy. Quickly became agitated, reports that her legs feel numb and her buttocks itches. She was sinus tachy 130-145. Dr Simms called down to room to assess patient. Patient is clenching hands oxygen 93% RA oxygen applied at 3L. At [address] Simms to administer 100mcg Fentanyl IV and 50MG IV Benadryl. Administer via Jessica SHANNON. Dr Simms at bedside during this time. Patient continues to be tachy and hypertensive order for IV 5mg Labadolol to be given. Patient is A&O able to communicate needs.
--- NOTE | 2022-05-23 17:12 | P.PCN_ITS ---
Date/Time/Diagnoses Date of procedure: 05/23/22 Time of procedure: 17:12 Pre-procedure diagnosis: 1. HNP WITH RADICULAR FEATURES, 2. MULTILEVEL CENTRAL STENOSIS, Post-procedure diagnosis: same Procedure Notes Procedure: 1. FLUOROSCOPICALLY GUIDED CONTRAST CONTROLLED INTERLAMINAR EPIDURAL STEROID INJECTION - L1/2 Indications: Marlen is referred by DILIP Martines for treatment of Bilateral Foraminal Stenosis L>R LE symptoms. Physician: Huey Simms Total Fluoroscopy time (seconds): 14 Total sedation minutes: 21 Complications: none Procedure in detail & Post-procedure care: FINDINGS Multilevel Central Spinal Stenosis with Nerve Root Compression DESCRIPTION OF PROCEDURE Fluoroscopically guided, contrast-controlled L1/2 translaminar epidural steroid injection. Following review of allergy and review of potential side effects and complications, including, but not necessarily limited to, infection, allergic reaction, local tissue breakdown, temporary as well as permanent nerve injury, paralysis, stroke and possible , the patient indicated that the patient understood and agreed to proceed. An informed consent document was signed by the patient, witnessed by a nurse, and placed in the patient's chart. Additionally, other treatment options including modalities, medications, and physical therapy were reviewed with the patient. After review of previous anaesthesic history and IV conscious sedation the patient was deemed safe to proceed with todays procedure with IV conscious sedation as ASA class II designation. Safety time-out was performed to confirm patient ID, procedure to be performed and site of procedure. IV sedation was accomplished with a combination of 4mg of Versed was administered by the RN after DO order, titrated to patient comfort during the course of the procedure while the patient remained responsive to all verbal commands In the prone position, following sterile prep and drape of the lumbar region, the L1/2 translaminar space was identified fluoroscopically. The skin was anesthetized via a 25-gauge, 1.5-inch needle with 1% lidocaine solution. At this point, a 22-gauge short bevel spinal needle was atraumatically introduced and advanced under fluoroscopic guidance into the region of the L1/2 translaminar space. Depth was confirmed on lateral view. Radiological data, including multiple fluoroscopic views of the lumbar spine, reveal a spinal needle at the L1/2 translaminar space. Lateral views then show placement of the needle in the epidural space. Subsequent views show contrast material flowing superiorly and inferiorly in the epidural space. No vascular or intrathecal uptake is observed. At this point, using loss of resistance technique with saline and air, the epidural space was entered. This was confirmed following negative aspiration with injection of approximately 1.5 cc of Isovue 200, showing excellent epidural flow without vascular or intrathecal uptake. At this point, 1 cc of 1% lidoc kenny solution combined with 3cc or 20mg of dexamethasone and 6mg of betamethasone was injected without incident. The patient tolerated the procedure well and was transferred to post procedure recovery room where she developed some lower extremity paresthesias and itchy feeling. She became hypertensive and tachycardic. She remained neurologically intact and responsive to all commands. Her vital signs and symptoms were treated with a combination of labetalol, fentanyl and benadryl IV. Please see the nursing notes for further details of doses and times given. She continued to stabilize and symptoms gradually resolved spontaneously. She was observed for an extended period of time until symptoms fully resolved and she was able to ambulate safely on her own. She was transferred to the care of her daughter Sindi to home in stable condition. POST OP INSTRUCTIONS The patient was provided a Pain Log to continue to record their response to the target-specific procedure prior to follow-up visit with their referring physician. Additionally, specific post-injection care instructions and a contact number to our office were provided if concerns arise regarding possible complications associated with the procedure are suspected.
--- NOTE | 2022-05-23 17:14 | PC.NURSE ---
Patient remains hypertensive and tachycardic - verbal order for an additional dose of Labetolol [address] Simms at bedside. Improvement seen with BP 159/73 and HR 85 SR, Sp02 96% RA. Patient reports improvements in itching and agitation. Pain 0/10 at this time. Patient in general appears more comfortable resting back in recliner. Daughter Sindi updated on patient status. Plan to continue to monitor.
--- NOTE | 2022-05-23 17:21 | PC.NURSE ---
Patient reports BLE no longer numb. Up at the chair with 2 person SBA. Able to march in place but still quite unstable. Patient's baseline mobility is walking with a cane. VS remain stable.
--- NOTE | 2022-05-23 17:44 | PC.NURSE ---
Patient continued to improve. VSS, pain and itching resolved. Up with SBA - baseline mobility and stability. Patient and daughter Sindi instructed to utilize FWW when at home for the night. Dr. Simms gave ok to discharge home with instructions to monitor BP and HR and follow up with PCP.
== END 2022-05-23 17:46 | disposition home or self-care (01) ==
PROVIDERS: PCP Student in an Organized Health Care Education/Training Program; Referring Provider Physical Medicine & Rehabilitation; Visit Provider Physical Medicine & Rehabilitation
DX: M51.16 Intervertebral disc disorders with radiculopathy, lumbar region (principal); M48.061 Spinal stenosis, lumbar region without neurogenic claudication
CPT/HCPCS: 62323; 99152; J0702; J1100; J1200; J2250; J3010; J3490

== ENCOUNTER 2022-08-02 16:57 | Emergency (ER) | payer OTHER, SELFPAY ==
[2022-08-02 17:35] VITALS: BP 146/79; PULSE 84; RESP 18; TEMP 36.8; O2SAT 97; BMI 25.0
[2022-08-02] MEDS: KETOROLAC 10 MG TABLET PO (19:27)
[2022-08-02] MEDS: ACETAMINOPHEN 325 MG TABLET 650 MG PO (19:27)
[2022-08-02] MEDS: BACITRACIN OINT 0.9 GM PCKT 1 APPLIC TOP (19:28)
[2022-08-02] MEDS: TET,DIPH,PERTUSS(ACELL),VAC/PF 0.5 ML SYRINGE IM (19:28)
[2022-08-02] MEDS: LIDOCAINE 2% W/EPI INJ 20 ML INJ (19:29)
[2022-08-02 19:58] VITALS: BP 142/76; PULSE 81; RESP 16; O2SAT 98
--- NOTE | 2022-08-02 20:30 | ED_ITS ---
HPI - Wound/Laceration <SATNAM Abdul - Last Filed: 08/02/22 20:37> General Chief Complaint: Wound/Laceration Stated Complaint: right leg injury/cut Time Seen by Provider: 08/02/22 18:11 Source: patient Mode of arrival: Wheelchair History of Present Illness HPI narrative: This is a 86-year-old female presents to the emergency department with a laceration to her right lower extremity she states from something in her hallway she does not know how this happened. She thinks that she Grieves her leg against say potted plant, she has a 3 cm laceration versus skin tear to her right lower extremity, bleeding is controlled. She denies knowing when her last tetanus was, states it is painful but does not need any medication for it currently. She is not on anticoagulants, denies any numbness or tingling, denies any foreign body. Related Data Home Medications Medication Instructions Recorded Confirmed naproxen sodium 220 mg capsule 220 mg PO BID PRN 11/28/21 11/28/21 (Aleve) acetaminophen 500 mg tablet 500 mg PO Q6H PRN 03/13/22 03/13/22 (Tylenol Extra Strength) lidocaine 4 % topical patch 1 patch topical DAILY PRN 03/13/22 03/13/22 omeprazole 20 mg capsule,delayed 20 mg PO DAILY 03/13/22 03/13/22 release Previous Rx's Medication Instructions Recorded tramadol 50 mg tablet 50 mg PO BID PRN pain #42 tabs 05/15/22 mupirocin 2 % topical ointment 1 applic topical DAILY PRN 08/02/22 laceration #15 grams Allergies Allergy/AdvReac Type Severity Reaction Status Date / Time No Known Drug Allergies Allergy Verified 03/13/22 15:43 Review of Systems <SATNAM Abdul - Last Filed: 08/02/22 20:37> Review of Systems Narrative: Review of systems is negative for acute abnormalities unless otherwise noted in HPI Patient History <SATNAM Abdul - Last Filed: 08/02/22 20:37> Medical History Facet arthropathy, lumbar Gait instability Herniated nucleus pulposus, lumbar Sacral back pain Surgical History H/O: hysterectomy Hx of tonsillectomy Previous back surgery Status post lumbar and lumbosacral fusion by anterior technique Family History Unknown No pertinent family history Social History Smoking Status: Never smoker Smoking Status: Never smoker alcohol intake frequency: 0-2 drinks per day Alcohol type: wine Substance Use Type: does not use Exam <SATNAM Abdul - Last Filed: 08/02/22 20:37> Narrative Exam Narrative: Reviewed vitals signs and nursing notes. MSK: moves all extremities, neurovascularly intact, no weakness, normal tone Skin: brisk capillary refill, without pallor or erythema, skin tear verses superficial laceration with subcutaneous tissue exposed to her right lower extremity approximately 3 cm, laceration is crescent shaped without bleeding. No foreign body, wound was thoroughly irrigated with normal saline, suture repair was completed without complication, no deep injury, no suspected tendon or muscular injury Neuro: normal speech and cognition, A&O x3, ambulatory, clear speech Psych: mental status is grossly normal, congruent mood, normal affect, pleasant and cooperative Initial Vital Signs Initial Vital Signs: Vital Signs Temperature 98.3 F 08/02/22 17:35 Pulse Rate 84 08/02/22 17:35 Respiratory Rate 18 08/02/22 17:35 Blood Pressure 146/79 H 08/02/22 17:35 Pulse Oximetry 97 08/02/22 17:35 Oxygen Delivery Method 08/02/22 17:35 <Irene Johnson DO - Last Filed: 08/03/22 03:55> Initial Vital Signs Initial Vital Signs: Vital Signs Temperature 98.3 F 08/02/22 17:35 Pulse Rate 84 08/02/22 17:35 Respiratory Rate 18 08/02/22 17:35 Blood Pressure 146/79 H 08/02/22 17:35 Pulse Oximetry 97 08/02/22 17:35 Oxygen Delivery Method 08/02/22 17:35 Procedures <SATNAM Abdul - Last Filed: 08/02/22 20:37> Laceration Repair Laceration 1: Site: lower extremity Size (cm): 3 Description: linear and flap Depth: simple, single layer Local Anesthetic: lidocaine 2%, bupivacaine 0.5% and with epi Amount of anesthesia used (mL): 6 Pre-repair: wound explored, irrigated extensively and deep structures intact Skin layer closed with: nylon Skin layer suture size: 5-0 and 6-0 Number of sutures: 12 Technique: simple, interrupted Course <SATNAM Abdul - Last Filed: 08/02/22 20:37> Orders Ordered: Discontinued Medications Acetaminophen (Acetaminophen 325 Mg Tablet) 650 mg PO NOW ONE Stop: 08/02/22 19:02 Last Admin: 08/02/22 19:27 Dose: 650 mg Documented By: CRISTINE Bacitracin (Bacitracin Oint 0.9 Gm Pckt) 1 applic TOP NOW ONE Stop: 08/02/22 19:02 Last Admin: 08/02/22 19:28 Dose: 1 applic Documented By: CRISTINE Diphtheria/Tetanus/Acell Pertussis (Tet,Diph,Pertuss(Acell),Vac/Pf 0.5 Ml Syringe) 0.5 ml IM .ONCE ONE Stop: 08/02/22 19:01 Last Admin: 08/02/22 19:28 Dose: 0.5 ml Documented By: CRISTINE Ketorolac Tromethamine (Ketorolac 10 Mg Tablet) 10 mg PO NOW ONE Stop: 08/02/22 19:01 Last Admin: 08/02/22 19:27 Dose: 10 mg Documented By: CRISTINE Lidocaine/Epinephrine (Lidocaine 1% W/Epi) 1 ml SUBCUT NOW ONE Stop: 08/02/22 18:44 Lidocaine/Epinephrine (Lidocaine 2% W/Epi Inj) 20 ml INJ INTRA-OP ONE Stop: 08/02/22 19:01 Last Admin: 08/02/22 19:29 Dose: 20 ml Documented By: CRISTIEN Vital Signs Vital signs: Vital Signs - 8 hr 08/02/22 19:58 Pulse Rate 81 Respiratory Rate 16 Blood Pressure 142/76 H Pulse Oximetry 98 Oxygen Delivery Method Room Air <Irene Johnson DO - Last Filed: 08/03/22 03:55> Orders Ordered: Discontinued Medications Acetaminophen (Acetaminophen 325 Mg Tablet) 650 mg PO NOW ONE Stop: 08/02/22 19:02 Last Admin: 08/02/22 19:27 Dose: 650 mg Documented By: CRISTINE Bacitracin (Bacitracin Oint 0.9 Gm Pckt) 1 applic TOP NOW ONE Stop: 08/02/22 19:02 Last Admin: 08/02/22 19:28 Dose: 1 applic Documented By: CRISTINE Diphtheria/Tetanus/Acell Pertussis (Tet,Diph,Pertuss(Acell),Vac/Pf 0.5 Ml Syringe) 0.5 ml IM .ONCE ONE Stop: 08/02/22 19:01 Last Admin: 08/02/22 19:28 Dose: 0.5 ml Documented By: CRISTINE Ketorolac Tromethamine (Ketorolac 10 Mg Tablet) 10 mg PO NOW ONE Stop: 08/02/22 19:01 Last Admin: 08/02/22 19: Dose: 10 mg Documented By: CRISTINE Lidocaine/Epinephrine (Lidocaine 1% W/Epi) 1 ml SUBCUT NOW ONE Stop: 08/02/22 18:44 Lidocaine/Epinephrine (Lidocaine 2% W/Epi Inj) 20 ml INJ INTRA-OP ONE Stop: 08/02/22 19:01 Last Admin: 08/02/22 19:29 Dose: 20 ml Documented By: CRISTINE Vital Signs Vital signs: Vital Signs - 8 hr 08/02/22 19:58 Pulse Rate 81 Respiratory Rate 16 Blood Pressure 142/76 H Pulse Oximetry 98 Oxygen Delivery Method Room Air MDM - Wound/Laceration <SATNAM Abdul - Last Filed: 08/02/22 20:37> [facility] Narrative Medical decision making narrative: 86-year-old presents emergency department with a laceration to her right lower extremity, approximately 3 cm, superficial, she is exposing subcutaneous layer. Wound was thoroughly irrigated with normal saline, her tetanus was updated today, wound closure was completed with 12 nylon sutures, patient tolerated well, apply bacitracin and a Band-Aid, encourage patient to cover with mupirocin, a Band-Aid, take Tylenol and or ibuprofen as needed for pain, have her sutures removed in 7-10 days. For any redness or streaking up her leg, I encouraged her to follow-up with her PCP or return emergency department for antibiotics. She is not on anticoagulants, does not have a history of diabetes, thinks that she grazed her leg across something sharp on a potted plant and did not have any bleeding in the emergency department today. Patient is appropriate and amenable to discharge home. Vital signs are stable on repeat examination is unremarkable. Patient has been informed of results. Patient has been given strict return to ER precautions for any new or worsening symptoms. Patient understands to follow up closely with outpatient providers as instructed. Patient understands plan and agrees to discharge home. All questions and concerns answered at this time. Discharge Plan Departure Patient Disposition: Home Clinical Impression: Laceration of leg, right Qualifiers: Encounter type: initial encounter Qualified Code(s): S81.811A - Laceration without foreign body, right lower leg, initial encounter Instructions: Laceration Repair Activity Restrictions/Additional Instructions: *You have been diagnosed with a laceration to your right leg, you received 12 sutures, please apply topical antibiotic ointment and a Band-Aid morning and night to keep your wound covered and apply something to keep it from bleeding on your pants until you have the sutures removed in 7-10 days. If you notice any redness or streaking up your leg, swelling that is out of proportion for the injury, please call your provider and ask for antibiotics or for an evaluation. This should heal in the next 5-7 days, please keep your sutures in until at least 7, have them removed at the walk-in clinic or at home by somebody who is trained. Thank you for trusting us with your care, I hope you feel better soon. Use Tylenol and ibuprofen as needed for your pain. *What to do: *Please continue to take your regular medications as directed. [x ] New medication prescriptions sent to your pharmacy: [ [facility]] [ ] New medication written as a paper prescription [ ] No new medications given *Please follow up with your primary care provider in 2-3 days, call for an appointment. Let them know you were seen in the Emergency Department and that we asked that you be seen for follow-up. We will electronically transmit a record of today's note if your PCP is in our system *If you do not have a primary care provider please contact [phone] to establish care with one of the [facility] primary care providers. *Return to Emergency Department if you should have any new, worsening, or concerning symptoms, such as [fever greater than 101F, chills, worsening pain, persistent vomiting or other bothersome symptoms]. Prescriptions: New mupirocin 2 % ointment 1 applic topical DAILY PRN (Reason: laceration) Qty: 15 0RF No Action tramadol 50 mg tablet 50 mg PO BID PRN (Reason: pain) Qty: 42 1RF naproxen sodium [Aleve] 220 mg capsule 220 mg PO BID PRN omeprazole 20 mg capsule,delayed release(DR/EC) 20 mg PO DAILY acetaminophen [Tylenol Extra Strength] 500 mg tablet 500 mg PO Q6H PRN lidocaine 4 % adhesive patch,medicated 1 patch topical DAILY PRN Referrals: Jessica [place], COLIN [Primary Care Provider] - Visit Report Forms: Patient Portal/API <Irene Johnson DO - Last Filed: 08/03/22 03:55> Cosign ED Attending Raimundoature Attestation: I was immediately available in the department for consultation. Documentation has been reviewed. I agree with assessment and plan.
== END 2022-08-02 19:59 | disposition home or self-care (01) ==
PROVIDERS: Emergency Provider Nurse Practitioner Critical Care Medicine; PCP Student in an Organized Health Care Education/Training Program
DX: S81.811A Laceration without foreign body, right lower leg, initial encounter (principal); W26.9XXA Contact with unspecified sharp object(s), initial encounter; Z23 Encounter for immunization
CPT/HCPCS: 12001; 90471; 99283; 99284; 90715

== ENCOUNTER 2022-08-29 13:40 | Outpatient (CLI) | payer OTHER, SELFPAY ==
[2022-08-29] VITALS (8 sets, daily range): BP systolic 136–170; BP diastolic 67–100; PULSE 85–96; RESP 20–23; TEMP 36.5; O2SAT 94–100
--- NOTE | 2022-08-29 13:41 | DI.RAD.S_ITS ---
PROCEDURE: PAIN L INTERLAMINAR/CAUDAL INJ INDICATIONS: SPONDYLOSIS COMPARISON: [facility], XA, PAIN L INTERLAMINAR/CAUDAL INJ, 05/23/2022, 16:06. FINDINGS: Fluoroscopic spot filming was performed to verify placement of spinal needles at the L5-S1 interlaminar space level(s), as labeled on the films. Appropriate location(s) of the needle tip(s) was confirmed by injection of iodinated contrast. IMPRESSION: Access needle in the L5-S1 interlaminar space for translaminar epidural steroid injection. Dictated by: Heather Newton MD, PhD on 08/29/2022 at 16:12 Approved by: Heather Newton MD, PhD on 08/29/2022 at 16:13
[2022-08-29] MEDS: MIDAZOLAM 2 MG/2 ML VIAL 4 MG IV (14:55)
[2022-08-29] MEDS: BUPIVACAINE 0.25% (PF) VIAL 5 ML SUBCUT (15:01)
[2022-08-29] MEDS: IOPAMIDOL 15 ML VIAL 3 ML INJ (15:01)
[2022-08-29] MEDS: BETAMETHASONE 30 MG/5 ML MDV 6 MG INJ (15:02)
[2022-08-29] MEDS: DEXAMETHASONE 10 MG/ML VIAL 20 MG INJ (15:02)
--- NOTE | 2022-08-29 15:15 | P.PCN_ITS ---
Date/Time/Diagnoses Date of procedure: 08/29/22 Time of procedure: 15:15 Pre-procedure diagnosis: 1. HNP WITH RADICULAR FEATURES, 2. MULTILEVEL CENTRAL STENOSIS, Post-procedure diagnosis: same Procedure Notes Procedure: 1. FLUOROSCOPICALLY GUIDED CONTRAST CONTROLLED INTERLAMINAR EPIDURAL STEROID INJECTION - L5/S1 Indications: Marlen is referred by Dr. [place] for treatment of Bilateral Foraminal Stenosis L>R LE symptoms. Physician: Huey Simms Total Fluoroscopy time (seconds): 9 Total sedation minutes: 9 Complications: none Procedure in detail & Post-procedure care: FINDINGS Multilevel Central Spinal Stenosis with Nerve Root Compression DESCRIPTION OF PROCEDURE Fluoroscopically guided, contrast-controlled L5/S1 translaminar epidural steroid injection. Following review of allergy and review of potential side effects and complications, including, but not necessarily limited to, infection, allergic reaction, local tissue breakdown, temporary as well as permanent nerve injury, paralysis, stroke and possible , the patient indicated that the patient understood and agreed to proceed. An informed consent document was signed by the patient, witnessed by a nurse, and placed in the patient's chart. Additionally, other treatment options including modalities, medications, and physical therapy were reviewed with the patient. After review of previous anaesthesic history and IV conscious sedation the patient was deemed safe to proceed with today?s procedure with IV conscious sedation as ASA class II designation. Safety time-out was performed to confirm patient ID, procedure to be performed and site of procedure. IV sedation was accomplished with a combination of 4mg of Versed administered by the RN after DO order, titrated to patient comfort during the course of the procedure while the patient remained responsive to all verbal commands. In the prone position, following sterile prep and drape of the lumbar region, the L5/S1 translaminar space was identified fluoroscopically. The skin was anesthetized via a 25-gauge, 1.5-inch needle with 1% lidocaine solution. At this point, a 22-gauge short bevel spinal needle was atraumatically introduced and advanced under fluoroscopic guidance into the region of the L5/S1 translaminar space. Depth was confirmed on lateral view. Radiological data, including multiple fluoroscopic views of the lumbar spine, reveal a spinal needle at the L5/S1 translaminar space. Lateral views then show placement of the needle in the epidural space. Subsequent views show contrast material flowing superiorly and inferiorly in the epidural space. No vascular or intrathecal uptake is observed. At this point, using loss of resistance technique with saline and air, the epidural space was entered. This was confirmed following negative aspiration with injection of approximately 1.5cc of Isovue 200, showing excellent epidural flow without vascular or intrathecal uptake. At this point, 1 cc of 1% lidoc kenny solution combined with 3cc or 20mg of dexamethasone and 6mg of betamethasone was injected without incident. The patent tolerated the procedure without signs of symptoms of complications prior to transfer to the recovery area for further monitoring. The patient was then transferred to the recovery area where they were observed for an appropriate period of time after the injection. The patient reported a VAS score of 6 prior to the procedure and a post-procedure VAS of 0. POST OP INSTRUCTIONS The patient was provided a Pain Log to continue to record their response to the target-specific procedure prior to follow-up visit with their referring physician. Additionally, specific post-injection care instructions and a contact number to our office were provided if concerns arise regarding possible complications associated with the procedure are suspected.
== END 2022-08-29 15:44 | disposition home or self-care (01) ==
PROVIDERS: PCP Student in an Organized Health Care Education/Training Program; Referring Provider Physical Medicine & Rehabilitation; Visit Provider Physical Medicine & Rehabilitation
DX: M51.17 Intervertebral disc disorders with radiculopathy, lumbosacral region (principal); M48.07 Spinal stenosis, lumbosacral region
CPT/HCPCS: 62323; J0702; J1100; J2250; J3490

== ENCOUNTER 2024-01-05 09:30 | Inpatient (IN) | payer MEDICARE, SELFPAY ==
[2024-01-05] VITALS (37 sets, daily range): BP systolic 135–199; BP diastolic 62–132; PULSE 59–91; RESP 8–21; TEMP 35.7–36.9; O2SAT 91–100; BMI 29.0; BMI 28.2
--- NOTE | 2024-01-05 | PATH_ITS ---
[facility] Accession Number: [id number] No. of containers..01 Tissue . 01 Material submitted: . colon - RIGHT COLON . 01 Diagnosis: COLON, RIGHT HEMICOLECTOMY: Invasive adenocarcinoma, moderately differentiated, with the following features: . CASE SUMMARY (AJCC - UICC 8): . SPECIMEN Procedure: Right hemicolectomy: . TUMOR: Tumor site: Cecum. Histologic type: Adenocarcinoma. Histologic grade: G2, moderately differentiated. Tumor size Greatest dimension: 8.1 cm. Additional dimensions: 4.4 x 1.1 cm. Tumor extent: Invades through muscularis propria into the pericolonic tissue. Macroscopic tumor perforation: Not identified. Lymphatic and/or vascular invasion: Positive for small vessel invasion. Perineural invasion: Not identified. . MARGINS All margins negative for invasive carcinoma. All margins negative for low-grade and high-grade dysplasia. . REGIONAL LYMPH NODES Tumor present in six regional lymph nodes. Total number of regional lymph nodes examined: 12. Tumor deposits: One tumor deposit identified. . pTNM CLASSIFICATION (AJCC 8TH EDITION): pT category: pT3. pN category: pN2a. . ADDITIONAL FINDINGS: Diverticulosis. . See comment. V 01/10/2024 1354 Local . 01 Comment: Immunohistochemical staining for markers of microsatellite instability (MSI) will be performed, and the results will be reported as an addendum. . 01 Electronically signed: . Ari Anderson MD, Pathologist NPI- [id number] . 01 Gross description: . Received in formalin with two identifiers and right colon, is a segment of right colon with attached ileum measuring 7.5 cm in length and 4.0 cm in average diameter with the right colon measuring 20.4 cm in length by 3.6 cm in average diameter, and attached appendix measuring 5.4 cm in length by 0.9 cm in diameter. The serosa is paz with creeping fat and a firm puckered area adjacent to the ileocecal valve measuring 2.1 cm in greatest dimension. The ileal margin is inked blue, the colon margin is inked black, the mesenteric and radial margins are inked green, and the area of puckered serosa is inked orange. Several small short sutures are located 1.4 cm from the ileal margin, possibly consistent with previous area of defect. The lumen contains paz to brown fecal material, and an exophytic mass is located within the cecum and involving the ileocecal valve measuring 8.1 x 4.4 cm. The mass is widely free from the ileal and colonic margins, and approaches the appendiceal orifice, but not grossly extend into the appendix. The lesion extends beyond the wall and into the pericolonic fat and approaches the orange-inked serosa. The lesion is widely free from the mesenteric margin. The remaining mucosa is paz and velvety with attenuated folds and several small paz nodules measuring up to 0.4 cm in greatest dimension. Diverticula extend up to 0.7 cm deep with no perforations grossly identified. . The appendix has paz, smooth, unremarkable serosa, and sectioning reveals a patent lumen averaging 0.3 cm in diameter. The chavez average 0.2 cm thick with no perforation or lesions identified. . Palpation reveals 13 paz lymph node candidates ranging from 0.2 to 2.1 cm in greatest dimension. . Gluer And Slicer Hand sections are submitted as follows: A1: Rep blue and black margins en face. A2: Rep green margin en face. A3: Lesion with extension into the adjacent adipose. A4-A5: Lesion with extension to orange-inked serosa. A6: Lesion to normal ileum. A7: Lesion to normal colon. A8: Additional small nodules. A9: Normal colon diverticula and normal ileum. A10: Appendix to include one-half of the bisected distal tip, cross section, and longitudinal section of appendiceal orifice. A11: Rep single lymph node candidate. A12: Rep single lymph node candidate. A13: One-half of bisected single lymph node candidate. A14: Single bisected lymph node candidate. A15: Four intact lymph node candidates. A16: Five intact lymph node candidates. ([id number]) /MRV 01/08/2024 1141 Local . 01 Pathologist provided ICD-10: C18.0 . 01 CPT . 118242, [id number], [id number] Specimen Comment: A courtesy copy of this report has been sent to [phone] Performed at: 01 [facility] [address] [place] [address], [place], [place] [id number] MD Ari Anderson MD Phone: [phone]
[2024-01-05] MEDS: SODIUM CHLORIDE 0.9% 1,000 ML 500 ML IV (09:55)
--- NOTE | 2024-01-05 10:02 | ED.ABDPAIN ---
HPI - Abdominal Pain General Chief Complaint: Abdominal Pain Stated Complaint: V/D/cramping T-14 Time Seen by Provider: 01/05/24 09:41 Source: patient Mode of arrival: Wheelchair History of Present Illness HPI narrative: Patient is a 88-year-old female who presents today with ongoing abdominal pain. She reports that it has been happening off and on for awhile she occasionally has diarrhea and vomiting. This morning she had pretty intense cramping and vomited 5 times. Daughter reports that she has not eating as much and that she is probably lost weight over the past couple of weeks. Patient says that she does have some shortness of breath with exertion but is really not unchanged today and not a complaint today. She has absolutely no sort of chest pain. She has not on anticoagulation. She takes no medication, head occasionally sees a PCP. Related Data Home Medications Medication Instructions Recorded Confirmed acetaminophen 500 mg tablet 500 mg PO Q6H PRN Pain (Scale 03/13/22 01/05/24 (Tylenol Extra Strength) Score 1-3) mirabegron 25 mg tablet,extended 25 mg PO DAILY 08/16/22 01/05/24 release 24 hr (Myrbetriq) Allergies Allergy/AdvReac Type Severity Reaction Status Date / Time No Known Drug Allergies Allergy Verified 01/05/24 12:28 Patient History Medical History Osteoporosis Sacral back pain Gait instability Herniated nucleus pulposus, lumbar Facet arthropathy, lumbar Surgical History Status post lumbar and lumbosacral fusion by anterior technique H/O: hysterectomy Hx of tonsillectomy Previous back surgery Family History Unknown No pertinent family history Social History Smoking Status: Never smoker Smoking Status: Never smoker alcohol intake frequency: 0-2 drinks per day Alcohol type: wine Substance Use Type: does not use Exam Initial Vital Signs Initial Vital Signs: Vital Signs Pulse Rate 88 01/05/24 09:38 Blood Pressure 199/79 H 01/05/24 09:38 Pulse Oximetry 98 01/05/24 09:38 GENERAL: Alert 88-year-old female and in no acute distress. HEENT: Head atraumatic,EOMI, pupils reactive, face symmetric, moist mucous membranes CARDIOVASCULAR: Regular rate and rhythm without murmurs, rubs or gallops. RESPIRATORY: Breath sounds equal bilaterally, no wheezes rales or rhonchi. ABDOMEN: Soft, mildly distended no guarding no rebound EXTREMITIES: Normal range of motion, no clubbing or edema. Neurovascularly intact NEUROLOGICAL: Alert and oriented x4 SKIN: Warm, dry, no laceration, no petechiae, no rashes or lesions. Course Orders Ordered: ED Orders 01/05/24 09:40 EKG-12 Lead Stat 01/05/24 09:57 Complete Blood Count AUTO DIFF Stat Comprehensive Metabolic Panel Stat Lipase Stat Troponin & CK Cardiac Panel Stat 01/05/24 10:14 CT abdomen pelvis w con Stat 01/05/24 12:00 Urinalysis and Microscopic Stat Urine Culture Stat 01/05/24 13:13 Education, smoking cessation ONGOING 01/05/24 13:15 Consult to Discharge Planning Routine Consult to Occupational Therapy Evaluate & Treat Consult to Physical Therapy Evaluate & Treat Acetaminophen (Acetaminophen 325 Mg Tablet) 650 mg PO Q6H PRN PRN Reason: Fever/Mild Pain (1-3) Hydromorphone HCl (Hydromorphone 0.5 Mg Inj) 0.5 mg IV Q2H PRN PRN Reason: Pain, Severe (7-10) Lactated Ringer's (Lactated Ringers) 1,000 mls @ 100 mls/hr IV CONT SHIRAZ Piperacillin Sod/Tazobactam (Sod 4.5 gm/ Sodium Chloride) 100 mls @ 200 mls/hr IV NOW ONE Stop: 01/05/24 14:14 Lactated Ringer's (Lactated Ringers) 1,000 mls @ 42 mls/hr IV CONT SHIRAZ Ibuprofen (Ibuprofen 600 Mg Tablet) 600 mg PO Q6H PRN PRN Reason: Fever/Mild Pain (1-3) Morphine Sulfate (Morphine 2 Mg/Ml Inj) 2 mg IV Q4HR PRN PRN Reason: Pain, Moderate (4-6) Last Admin: 01/05/24 13:04 Dose: 2 mg Documented By: LUDY Naloxone HCl (Naloxone 0.4 Mg/Ml Vial) 0.2 mg IV Q2MIN PRN PRN Reason: Opiate Reversal Ondansetron HCl (Ondansetron 4 Mg Odt) 4 mg PO NOW PRN PRN Reason: Nausea And Vomiting Ondansetron HCl (Ondansetron 4 Mg/2 Ml Inj) 4 mg IV NOW PRN PRN Reason: Nausea And Vomiting Last Admin: 01/05/24 10:14 Dose: 4 mg Documented By: PK Oxycodone HCl (Oxycodone Ir 5 Mg Tablet) 5 mg PO Q3H PRN PRN Reason: Pain, Moderate (4-6) Discontinued Medications Sodium Chloride (Normal Saline 0.9%) 1,000 mls @ 500 mls/hr IV BOLUS ONE Stop: 01/05/24 11:39 Last Infusion: 01/05/24 12:02 Dose: Infused Documented By: Admin: 01/05/24 09:55 Dose: 500 mls/hr Documented By: AMINA Ceftriaxone Sodium 1,000 mg/ (Sodium Chloride) 100 mls @ 200 mls/hr IV NOW ONE Stop: 01/05/24 12:21 Last Admin: 01/05/24 12:59 Dose: 200 mls/hr Documented By: LUDY Piperacillin Sod/Tazobactam (Sod 3.375 gm/ Sodium Chloride) 100 mls @ 25 mls/hr IV Q8H SHIRAZ Stop: 01/05/24 13:46 Morphine Sulfate (Morphine 2 Mg/Ml Inj) 2 mg IV NOW ONE Stop: 01/05/24 10:15 Last Admin: 01/05/24 10:38 Dose: 2 mg Documented By: PRASANNA Vital Signs Vital signs: Vital Signs - 8 hr 01/05/24 09:38 01/05/24 09:38 01/05/24 09:41 Temperature 97.7 F Pulse Rate 88 88 Respiratory Rate 18 Blood Pressure 199/79 H 199/79 H Pulse Oximetry 98 99 Oxygen Delivery Method Room Air 01/05/24 10:00 01/05/24 10:01 01/05/24 10:01 Temperature Pulse Rate 90 90 Respiratory Rate 16 Blood Pressure 163/132 H Pulse Oximetry 95 93 Oxygen Delivery Method Room Air 01/05/24 10:34 01/05/24 10:35 01/05/24 10:35 Temperature Pulse Rate 91 H 91 H Respiratory Rate Blood Pressure 184/84 H Pulse Oximetry 95 95 Oxygen Delivery Method 01/05/24 11:00 01/05/24 11:00 01/05/24 11:30 Temperature Pulse Rate 80 Respiratory Rate Blood Pressure 161/72 H 161/71 H Pulse Oximetry 95 Oxygen Delivery Method 01/05/24 11:30 Temperature Pulse Rate 76 Respiratory Rate 14 Blood Pressure Pulse Oximetry 95 Oxygen Delivery Method Room Air MDM - Abdominal Pain Lab Data 01/05/24 09:57 01/05/24 09:57 Labs: Lab Results 01/05/24 01/05/24 Range/Units 09:57 12:00 WBC 11.0 (4.5-11.0) X10^3/uL RBC 4.51 (4.0-5.2) X10^6/uL Hgb 13.7 (12.0-16.0) g/dL Hct 41.0 (36-46) % MCV 91.0 (80-100) fL MCH 30.4 (26-34) PG MCHC 33.5 (30-36) % RDW 13.0 (11.6-14.8) % Plt Count 277 (150-400) X10^3/uL Neut % (Auto) 70.7 (50-75) % Lymph % (Auto) 13.4 L (25-40) % [place] % (Auto) 12.8 (3-14) % Eos % (Auto) 2.6 (2-4) % Baso % (Auto) 0.5 (0-2) % Neut # (Auto) 7800 H (5643-7602) /uL Lymph # (Auto) 1500 (9233-1730) /uL [place] # (Auto) 1400 H (0-900) /uL Eos # (Auto) 300 (0-450) /uL Baso # (Auto) 100 (0-100) /uL Sodium 137 (137-145) mmol/L Potassium 4.6 (3.4-5.1) mmol/L Chloride 104 (98-107) mmol/L Carbon Dioxide 29 (22-32) mmol/L BUN 11 (7-17) mg/dL Creatinine 0.51 L (0.52-1.04) mg/dL Estimated GFR > 60 (>60) mL/min BUN/Creatinine Ratio 21.6 (6-22) Glucose 117 H (80-110) mg/dL Calcium 9.3 (8.4-10.2) mg/dL Total Bilirubin 0.5 (0.2-1.3) mg/dL AST 31 (14-36) IU/L ALT 16 (<35) IU/L Alkaline Phosphatase 96 (38-126) U/L Total Creatine Kinase 50 (30-135) U/L Troponin I < 0.012 (0.01-0.034) ng/mL Total Protein 7.1 (6.3-8.2) g/dL Albumin 4.0 (3.5-5.0) g/dL Globulin 3.1 (1.7-4.1) g/dL Albumin/Globulin Ratio 1.3 (1.0-2.8) Lipase 53 (23-300) U/L Urine Color Yellow Urine Appearance Sl cloudy Urine pH 5.5 (4.5-8.0) Ur Specific [place] 1.015 (1.000-1.035) Urine Protein Trace H (Negative) Urine Glucose (UA) Negative (Negative) g/dL Urine Ketones Negative (NEGATIVE) Urine Occult Blood Negative (Negative) Urine Nitrate Positive H (Negative) Urine Bilirubin Negative (NEGATIVE) Urine Urobilinogen 0.2 (0.2) E.U./dL Ur Leukocyte Esterase Negative (NEGATIVE) Urine RBC 1-5/hpf (0-5/HPF) Urine WBC 1-5/hpf (0-5/HPF) Ur Squamous Epith Cells 0-1 /hpf (0-5/HPF) Amorphous Sediment 1+ Urine Bacteria Many (>30) H (None) Ur Culture Indicated? Specimen cultured Vol Urine Centrifuged 10ml (spun) Imaging Data CT scan - abdomen/pelvis: Radiologist's Impression: PROCEDURE: CT ABDOMEN PELVIS W CON INDICATIONS: pain vomiting TECHNIQUE: After the administration of intravenous contrast, axial sections acquired from the lung bases to the pubic symphysis. Coronal and sagittal reformats were performed. For radiation dose reduction, the following was used: automated exposure control, adjustment of mA and/or kV according to patient size. COMPARISON: None. FINDINGS: Lower thorax: The lung bases are clear. Heart size normal. No hiatal hernia. Liver: Large irregular hepatic mass lesion measures up to Biliary system: Calcified stones noted in the lumen of the gallbladder. No pericholecystic inflammatory change. No intra or extrahepatic bile duct dilation. Pancreas: Unremarkable without mass or inflammation evident. Spleen: Normal in size and density. Adrenals: Normal morphology and density. Reproductive system: Unremarkable as visualized. Urinary system: Normal renal size and attenuation. No renal calculi, hydronephrosis, or solid mass present. Urinary bladder unremarkable. Gastrointestinal system: Irregular cecal mass lesion with wall thickening enhancement measures overall 5.6 x 4.1 cm. Colon appears relatively decompressed, and the distal ileum and small bowel is distended measuring up to 2.7 cm with fecalization of bowel contents. Multiple diverticula arise from the sigmoid colon without evidence of diverticulitis. Appendix: No findings to suggest acute appendicitis. Peritoneal spaces: Right lower quadrant adenopathy measures up to 1.8 x 2.5 cm adjacent to the cecum. No free air. Small amount of free fluid in the pelvis. Vasculature: The IVC, aorta and iliac vasculature are unremarkable. Abdominal wall: Abdominal wall intact without evidence of ventral or inguinal hernias. Musculoskeletal: Normal bone mineralization. Degenerative disc disease and arthropathy noted in lower lumbar spine. Lower lumbar spine decompression, instrumentation and decompression noted. Severe central stenosis L2-3. No acute fractures. IMPRESSION: Cecal colon cancer, hepatic metastasis, and early small-bowel obstruction. Cecal mass lesion covers the ileocecal valve results in distension and stasis of the distal small bowel. Right lower quadrant mesenteric adenopathy and irregular large hepatic mass lesion consistent with metastatic disease Additional chronic findings include degenerative disc disease with severe central stenosis, advanced sigmoid diverticulosis, cholelithiasis without cholecystitis. Approved by: Sheng Hopkins M.D. on 01/05/2024 at 10:10 ECG Data Attestation: I personally reviewed and interpreted this ECG as follows: Interpretation: Sinus rhythm rate 84 TX interval 154 QRS 80 QTC 399 artifact MDM Narrative Medical decision making narrative: Patient 88-year-old female without significant past medical history presenting today with ongoing abdominal pain off on for awhile. Had increasing nausea vomiting today. However Zofran seems to have helped. Blood work: WBC 11.0, hemoglobin 13.7, hematocrit 41.0, platelets 277, sodium 137, potassium 4.6, chloride 104, carbon dioxide 29, BUN 11, creatinine 0.5, glucose 117, bilirubin 0.5, AST 31, ALT 16 troponin negative Imaging reviewed: Cecal colon cancer with hepatic metastasis with early small-bowel obstruction Patient has gotten some IV fluids pain medication nausea medication. She has not had any further vomiting. She overall appears well despite CT findings. 1130 Dr. Fermin on-call surgery updated patient's symptoms test results reviewed CT in ED to see and evaluate patient. States that patient would likely benefit from palliative surgery Discharge Plan Departure Patient Disposition: Admitted As Inpatient Clinical Impression: Small bowel obstruction, Metastatic colon cancer to liver Admit Date/Time: 01/05/24 13:19 Admit Provider: Naveen Fermin
[2024-01-05 10:04] LABS: Add Manual Diff / Slide Review NO; Basophils Absolute Auto 100 /uL (0-100); Basophils Percent Auto 0.5 % (0-2); Eosinophils Absolute Auto 300 /uL (0-450); Eosinophils Percent Auto 2.6 % (2-4); Hemoglobin 13.7 g/dL (12.0-16.0); Lymphocytes Absolute Auto 1500 /uL (1100-4500); Lymphocytes Percent Auto 13.4 % (25-40); Mean Corpuscular HGB Conc 33.5 % (30-36); Mean Corpuscular Hemoglobin 30.4 PG (26-34); Monocytes Absolute Auto 1400 /uL (0-900); Monocytes Percent Auto 12.8 % (3-14); Neutrophils Absolute Auto 7800 /uL (1500-7000); Neutrophils Percent Auto 70.7 % (50-75); Platelet Count 277 X10^3/uL (150-400); Red Blood Cell Count 4.51 X10^6/uL (4.0-5.2)
[2024-01-05] MEDS: ONDANSETRON 4 MG/2 ML INJ IV (10:14)
--- NOTE | 2024-01-05 10:14 | DI.CT.S_ITS ---
PROCEDURE: CT ABDOMEN PELVIS W CON INDICATIONS: pain vomiting TECHNIQUE: After the administration of intravenous contrast, axial sections acquired from the lung bases to the pubic symphysis. Coronal and sagittal reformats were performed. For radiation dose reduction, the following was used: automated exposure control, adjustment of mA and/or kV according to patient size. COMPARISON: None. FINDINGS: Lower thorax: The lung bases are clear. Heart size normal. No hiatal hernia. Liver: Large irregular hepatic mass lesion measures up to Biliary system: Calcified stones noted in the lumen of the gallbladder. No pericholecystic inflammatory change. No intra or extrahepatic bile duct dilation. Pancreas: Unremarkable without mass or inflammation evident. Spleen: Normal in size and density. Adrenals: Normal morphology and density. Reproductive system: Unremarkable as visualized. Urinary system: Normal renal size and attenuation. No renal calculi, hydronephrosis, or solid mass present. Urinary bladder unremarkable. Gastrointestinal system: Irregular cecal mass lesion with wall thickening enhancement measures overall 5.6 x 4.1 cm. Colon appears relatively decompressed, and the distal ileum and small bowel is distended measuring up to 2.7 cm with fecalization of bowel contents. Multiple diverticula arise from the sigmoid colon without evidence of diverticulitis. Appendix: No findings to suggest acute appendicitis. Peritoneal spaces: Right lower quadrant adenopathy measures up to 1.8 x 2.5 cm adjacent to the cecum. No free air. Small amount of free fluid in the pelvis. Vasculature: The IVC, aorta and iliac vasculature are unremarkable. Abdominal wall: Abdominal wall intact without evidence of ventral or inguinal hernias. Musculoskeletal: Normal bone mineralization. Degenerative disc disease and arthropathy noted in lower lumbar spine. Lower lumbar spine decompression, instrumentation and decompression noted. Severe central stenosis L2-3. No acute fractures. IMPRESSION: Cecal colon cancer, hepatic metastasis, and early small-bowel obstruction. Cecal mass lesion covers the ileocecal valve results in distension and stasis of the distal small bowel. Right lower quadrant mesenteric adenopathy and irregular large hepatic mass lesion consistent with metastatic disease Additional chronic findings include degenerative disc disease with severe central stenosis, advanced sigmoid diverticulosis, cholelithiasis without cholecystitis. Approved by: Sheng Hopkins M.D. on 01/05/2024 at 10:10
[2024-01-05 10:19] LABS: Alanine Aminotransferase 16 IU/L (<35); Albumin Globulin Ratio 1.3 (1.0-2.8); Alkaline Phosphatase 96 U/L (38-126); Aspartate Aminotransferase 31 IU/L (14-36); BUN Creatinine Ratio 21.6 (6-22); Bilirubin Total 0.5 mg/dL (0.2-1.3); Blood Urea Nitrogen 11 mg/dL (7-17); Calcium 9.3 mg/dL (8.4-10.2); Carbon Dioxide 29 mmol/L (22-32); Chloride 104 mmol/L (98-107); Creatine Kinase 50 U/L (30-135); Estimated Glomerular Filt Rate > 60 mL/min (>60); Globulin 3.1 g/dL (1.7-4.1); Glucose 117 mg/dL (80-110); HEMOLYSIS 19 (0-50); Lipase 53 U/L (23-300); Potassium 4.6 mmol/L (3.4-5.1); Sodium 137 mmol/L (137-145); Total Protein 7.1 g/dL (6.3-8.2)
[2024-01-05 10:30] LABS: Troponin I < 0.012 ng/mL (0.01-0.034)
[2024-01-05] MEDS: MORPHINE 2 MG/ML INJ IV ×2 (10:38→13:04)
[2024-01-05 12:06] LABS: Appearance Urine UA SL CLOUDY; Bilirubin Urine UA NEGATIVE (NEGATIVE); Color Urine UA YELLOW; Glucose Urine UA NEGATIVE (Negative); Ketones Urine UA NEGATIVE (NEGATIVE); Leukocyte Esterase Urine UA NEGATIVE (NEGATIVE); Nitrite Urine UA POSITIVE (Negative); Occult Blood Urine UA NEGATIVE (Negative); Protein Urine UA TRACE (Negative); Specific Gravity Urine UA 1.015 (1.000-1.035); Urobilinogen Urine UA 0.2 E.U./dL (0.2)
[2024-01-05 12:08] LABS: pH Urine UA 5.5 (4.5-8.0)
[2024-01-05 12:12] LABS: Bacteria Urine Many (>30); RBC Urine 1-5/HPF (0-5/HPF); Squamous Epithelial Cell Urine 0-1 /HPF (0-5/HPF); Urine Volume 10mL (spun); WBC Urine 1-5/HPF (0-5/HPF)
[2024-01-05 12:13] LABS: Amorphous Sediment Urine 1+; Culture Indicated Urine Specimen Cultured
[2024-01-05] MEDS: cefTRIAXone 1,000 MG in SODIUM CHLORIDE 0.9% 100 ML 200 MG IV (12:59)
--- NOTE | 2024-01-05 13:16 | P.HP_ITS ---
History of Present Illness History of Present Illness Date Patient Seen: 01/05/24 Time Patient Seen: 13:16 Chief complaint: V/D/cramping T-14 Narrative: Marlen is an 88-year-old generally healthy woman who presents to [facility] Emergency Department with abdominal pain and emesis. For the past several months she has been having cramping abdominal pain which became acutely worse today. CT abdomen pelvis demonstrates a large obstructing cecal mass with mesenteric lymphadenopathy and hepatic metastasis. Previous malignancy includes breast cancer status post lumpectomy and radiation no chemotherapy. Previous abdominal surgery significant for hysterectomy and appendectomy. She has chronic back pain status post lumbar fusion. She lives alone generally manages her activities of daily living independently. She ambulates with a walker at home secondary to back pain. Her daughter who is with her in the emergency department today lives next door. [facility] Medical History Osteoporosis Sacral back pain Gait instability Herniated nucleus pulposus, lumbar Facet arthropathy, lumbar Surgical History Status post lumbar and lumbosacral fusion by anterior technique H/O: hysterectomy Hx of tonsillectomy Previous back surgery Family History Unknown No pertinent family history Social History Smoking Status: Never smoker Meds Home Medications and Allergies Home Medications Medication Instructions Recorded Confirmed Type acetaminophen 500 mg tablet 500 mg PO Q6H PRN Pain (Scale 03/13/22 01/05/24 History (Tylenol Extra Strength) Score 1-3) mirabegron 25 mg tablet,extended 25 mg PO DAILY 08/16/22 01/05/24 History release 24 hr (Myrbetriq) Allergies Allergy/AdvReac Type Severity Reaction Status Date / Time No Known Drug Allergies Allergy Verified 01/05/24 12:28 Exam Vital Signs (past 8 hours): - 01/05/24 09:38 01/05/24 09:38 01/05/24 09:41 Temperature 97.7 F Pulse Rate 88 88 Respiratory Rate 18 Blood Pressure 199/79 H 199/79 H Pulse Oximetry 98 99 Oxygen Delivery Method Room Air 01/05/24 10:00 01/05/24 10:01 01/05/24 10:01 Temperature Pulse Rate 90 90 Respiratory Rate 16 Blood Pressure 163/132 H Pulse Oximetry 95 93 Oxygen Delivery Method Room Air 01/05/24 10:34 01/05/24 10:35 01/05/24 10:35 Temperature Pulse Rate 91 H 91 H Respiratory Rate Blood Pressure 184/84 H Pulse Oximetry 95 95 Oxygen Delivery Method 01/05/24 11:00 01/05/24 11:00 01/05/24 11:30 Temperature Pulse Rate 80 Respiratory Rate Blood Pressure 161/72 H 161/71 H Pulse Oximetry 95 Oxygen Delivery Method 01/05/24 11:30 Temperature Pulse Rate 76 Respiratory Rate 14 Blood Pressure Pulse Oximetry 95 Oxygen Delivery Method Room Air Oxygen Delivery Method Room Air Narrative Exam Narrative: GENERAL: A well nourished, well developed elderly woman, resting comfortably, in no acute distress. HEENT: Normocephalic, atraumatic. No scleral icterus CHEST: Rising symmetrically. No audible wheezes CARDIOVASCULAR: Warm and well perfused. Regular rate ABDOMEN: Tender right lower quadrant with moderate abdominal distention no peritonitis. EXTREMITIES: Normal tone and without edema. NEUROLOGIC: Moving all extremities spontaneously. No gross motor deficits. Objective Labs 01/05/24 09:57 01/05/24 09:57 Labs: Laboratory Results - last 24 hr 01/05/24 01/05/24 09:57 12:00 WBC 11.0 RBC 4.51 Hgb 13.7 Hct 41.0 MCV 91.0 MCH 30.4 MCHC 33.5 RDW 13.0 Plt Count 277 Neut % (Auto) 70.7 Lymph % (Auto) 13.4 L [place] % (Auto) 12.8 Eos % (Auto) 2.6 Baso % (Auto) 0.5 Neut # (Auto) 7800 H Lymph # (Auto) 1500 [place] # (Auto) 1400 H Eos # (Auto) 300 Baso # (Auto) 100 Sodium 137 Potassium 4.6 Chloride 104 Carbon Dioxide 29 BUN 11 Creatinine 0.51 L Estimated GFR > 60 BUN/Creatinine Ratio 21.6 Glucose 117 H Calcium 9.3 Total Bilirubin 0.5 AST 31 ALT 16 Alkaline Phosphatase 96 Total Creatine Kinase 50 Troponin I < 0.012 Total Protein 7.1 Albumin 4.0 Globulin 3.1 Albumin/Globulin Ratio 1.3 Lipase 53 Urine Color Yellow Urine Appearance Sl cloudy Urine pH 5.5 Ur Specific [place] 1.015 Urine Protein Trace H Urine Glucose (UA) Negative Urine Ketones Negative Urine Occult Blood Negative Urine Nitrate Positive H Urine Bilirubin Negative Urine Urobilinogen 0.2 Ur Leukocyte Esterase Negative Urine RBC 1-5/hpf Urine WBC 1-5/hpf Ur Squamous Epith Cells 0-1 /hpf Amorphous Sediment 1+ Urine Bacteria Many (>30) H Ur Culture Indicated? 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 I had a long discussion with the patient and her daughter in the emergency department in regards to her new diagnosis. Recommend we proceed with open colectomy and hepatic biopsy. I explained this is a palliative operation with the intention of relieving the acute obstruction however I told her I suspect she will ultimately succumb to her malignancy. An overview of the operation was discussed. I explained the risks of this emergency operation including but not limited to infection, hemorrhage, anastomotic leak, damage to surrounding structures, and rare but serious complications including myocardial infarction, stroke and . Their questions have been answered and she is in agreement with this plan.
[2024-01-05] MEDS: LACTATED RINGERS 1,000 ML 42 ML IV ×2 (14:19→15:24)
[2024-01-05 14:51] LABS: Carcinoembryonic Antigen 6.7 ng/mL (0.1-3.0)
--- NOTE | 2024-01-05 14:56 | SUR.OPER ---
Supine on padded OR bed, head on pillow, arms secured on padded arm boards at <90 degrees abduction, legs uncrossed, safety belt at thigh, tape over blanket over lower legs.
[2024-01-05] MEDS: BUPIVACAINE LIPOSOME 266 MG/20 ML VIAL INJ (15:03)
[2024-01-05] MEDS: BUPIVACAINE 0.25% (PF) VIAL 30 ML INJ (15:04)
[2024-01-05] MEDS: PIPERACILLIN/TAZO 4.5 GM in SODIUM CHLORIDE 0.9% 100 ML IV (15:05)
[2024-01-05] MEDS: ACETAMINOPHEN IV 1,000 MG/100 ML VIAL 400 MG IV (15:08)
[2024-01-05 15:31] LABS: MRSA (Nasal) PCR Not Detected (Not Detect)
[2024-01-05] MEDS: HYDROMORPHONE 1 MG INJ IV ×2 (16:47→17:00)
--- NOTE | 2024-01-05 17:13 | PM.OP.1 ---
Operative Date/Time/Diagnoses Date of procedure: 01/05/24 Time of procedure: 17:13 Pre-op diagnosis: Metastatic colon cancer Small-bowel obstruction Post-op diagnosis: same Procedure & Clinicians Procedure: Right hemicolectomy Same procedure as scheduled: Yes Indications: Marlen is an 88-year-old woman who presented to the emergency department with symptoms of a small-bowel obstruction. CT abdomen pelvis demonstrates a large mass within the cecum causing small bowel obstruction with regional mesenteric lymphadenopathy and hepatic metastasis. Following discussion she elects to proceed with a palliative resection. Surgeon: Naveen Fermin Anesthesia Type: General Operative Notes Findings: Large obstructing tumor within the cecum. Mesenteric lymphadenopathy. 10 cm mass in the dome of the liver Specimen(s): other (Right colon) Estimated Blood Loss (mL): 100 Procedure in detail: Patient was brought to the operating room placed supine on the table. Bilateral lower extremity compression devices were applied. She received Zosyn. General anesthesia was induced and she was intubated with an endotracheal tube. A Vasquez catheter was sterilely placed. She was then prepped and draped in sterile condition at time-out was performed. A midline laparotomy was made. The abdomen was entered and there was a large mass within the right colon causing small-bowel obstruction. The small bowel was eviscerated. The terminal ileum was divided after a window within the mesentery was made and the ARCADIO stapler was used to divide the bowel with a blue load 75 mm. The colon was then divided just distal to the hepatic flexure in a similar fashion. The hepatic flexure was then taken down using the electrocautery. The sweep the duodenum was identified and kept posterior out of harm's way. The right colon was then mobilized medially by dissecting along the white line of [place]. The mesentery to the right colon was then taken using the LigaSure. Approximately 10 cm mass was present in the dome of the liver but not readily accessible. We fashioned a [id number] anastomosis functional end and. A crotch stitch was placed using silk suture. An enterotomy and a colotomy were made and then the 2 limbs were joined using a 3rd firing of the linear stapler 75 mm blue load. The anastomosis was widely patent and hemostatic. The common opening was then closed using a running 3-0 PDS suture. The suture line was then imbricated using interrupted silk suture. I tested the anastomosis there was no evidence of leak it lay without tension and was well perfused. The anastomosis in the small bowel contents were returned to the abdomen and the abdomen was copiously lavaged with several L of saline until it returned clear. The fascia was closed using a 1. PDS suture in running fashion. The subcutaneous tissue was reapproximated using 3-0 Vicryl and skin closed with parminder followed by the application of an Aquacel dressing. She was extubated following tap blocks by anesthesia and transferred to recovery in stable condition. The sponge and instrument count was correct x2. Complications: none Post-operative Condition: stable Disposition: Acute Care
[2024-01-05] MEDS: HYDROMORPHONE 0.5 MG INJ IV ×3 (17:20→22:07)
[2024-01-05] MEDS: LACTATED RINGERS 1,000 ML 100 ML IV (18:04)
--- NOTE | 2024-01-05 18:17 | PC.NURSE ---
1758 Pt arrived to from PACU, IV in progress to TRISH, changed to LR @ 100ml/hr. VSS, O2sat 98% on 3l per nasal cannula. Midline incision with scant shadow drainage noted. SCDs on, ICE pack to incision area. Pt c/o 02/07 abdominal pain, explained that too soon for pain med, position changed for comfort.
[2024-01-05] MEDS: PIPERACILLIN/TAZO 3.375 GM in SODIUM CHLORIDE 0.9% 100 ML IV (18:33)
[2024-01-06] VITALS (31 sets, daily range): BP systolic 122–179; BP diastolic 58–80; PULSE 78–121; RESP 11–24; TEMP 35.6–36.8; O2SAT 87–99
[2024-01-06] MEDS: OXYCODONE IR 5 MG TABLET PO ×4 (01:09→14:20)
[2024-01-06] MEDS: LACTATED RINGERS 1,000 ML 100 ML IV (04:02)
[2024-01-06] MEDS: HYDROMORPHONE 0.5 MG INJ IV ×2 (08:34→17:08)
--- NOTE | 2024-01-06 10:17 | P.PN_ITS ---
Subjective Subjective Date Patient Seen: 01/06/24 Time Patient Seen: 10:17 Interval history: Postoperative day 1 status post ex lap right hemicolectomy for obstructing colon cancer -tolerated sips of clears -no acute overnight events -moderate pain but controllable Exam Vital Signs (past 8 hours): - 01/06/24 03:00 01/06/24 03:00 01/06/24 04:00 Temperature 96.7 F L Pulse Rate 81 Respiratory Rate 16 Blood Pressure 158/74 H 145/76 H Pulse Oximetry 98 Oxygen Delivery Method Oxygen Flow Rate 2 2 01/06/24 04:00 01/06/24 05:00 01/06/24 05:00 Temperature Pulse Rate 92 H 83 Respiratory Rate 23 18 Blood Pressure 142/68 H Pulse Oximetry 98 98 Oxygen Delivery Method Oxygen Flow Rate 2 01/06/24 05:00 01/06/24 06:00 01/06/24 07:00 Temperature Pulse Rate 90 Respiratory Rate 20 Blood Pressure 137/59 L Pulse Oximetry 97 96 Oxygen Delivery Method Nasal Cannula Nasal Cannula Oxygen Flow Rate 2 2 01/06/24 07:00 01/06/24 08:00 01/06/24 08:00 Temperature 97.4 F L Pulse Rate 85 Respiratory Rate 17 16 Blood Pressure 122/58 L Pulse Oximetry 96 Oxygen Delivery Method Oxygen Flow Rate 01/06/24 08:00 01/06/24 09:00 01/06/24 09:00 Temperature Pulse Rate 84 92 H Respiratory Rate 18 24 Blood Pressure Pulse Oximetry 95 98 96 Oxygen Delivery Method Nasal Cannula Oxygen Flow Rate 2 01/06/24 09:00 Temperature Pulse Rate Respiratory Rate Blood Pressure 123/58 L Pulse Oximetry Oxygen Delivery Method Oxygen Flow Rate Fraction of Inspired Oxygen 28 SaO2/FiO2 Ratio 350 Oxygen Delivery Method Nasal Cannula Oxygen Flow Rate 2 Narrative Exam Narrative: General adult woman alert oriented no acute distress Chest nonlabored respiration Cardiac sinus rhythm Abdomen soft appropriately tender to palpation Objective Labs 01/05/24 09:57 01/05/24 09:57 Labs: Laboratory Results - last 24 hr 01/05/24 01/05/24 01/05/24 09:57 12:00 14:00 Sodium 137 Potassium 4.6 Chloride 104 Carbon Dioxide 29 BUN 11 Creatinine 0.51 L Estimated GFR > 60 BUN/Creatinine Ratio 21.6 Glucose 117 H Calcium 9.3 Total Bilirubin 0.5 AST 31 ALT 16 Alkaline Phosphatase 96 Total Creatine Kinase 50 Troponin I < 0.012 Total Protein 7.1 Albumin 4.0 Globulin 3.1 Albumin/Globulin Ratio 1.3 Lipase 53 Carcinoembryonic Ag 6.7 H Urine Color Yellow Urine Appearance Sl cloudy Urine pH 5.5 Ur Specific [place] 1.015 Urine Protein Trace H Urine Glucose (UA) Negative Urine Ketones Negative Urine Occult Blood Negative Urine Nitrate Positive H Urine Bilirubin Negative Urine Urobilinogen 0.2 Ur Leukocyte Esterase Negative Urine RBC 1-5/hpf Urine WBC 1-5/hpf Ur Squamous Epith Cells 0-1 /hpf Amorphous Sediment 1+ Urine Bacteria Many (>30) H Ur Culture Indicated? Specimen cultured Vol Urine Centrifuged 10ml (spun) Nasal Screen MRSA (PCR) Not detected PFSH Medical History Osteoporosis Sacral back pain Gait instability Herniated nucleus pulposus, lumbar Facet arthropathy, lumbar Surgical History Status post lumbar and lumbosacral fusion by anterior technique H/O: hysterectomy Hx of tonsillectomy Previous back surgery Family History Unknown No pertinent family history Social History household members: family Smoking Status: Never smoker Assessment & Plan Post-op Postoperative Procedures: Procedures Operation Date: 01/05/24 14:30 Actual Procedure Side Surgeon p RIGHT HEMICOLECTOMY Naveen Fermin MD Postoperative status narrative: 88-year-old woman with metastatic colon cancer new diagnosis presenting with an acute small bowel obstruction postoperative day 1 status post right hemicolectomy -full liquid diet -DC IV fluids -DC telemetry -remove Vasquez catheter when able -PT OT -SCDs and prophylactic Lovenox -urinary tract infection present at admission. Continue Zosyn (unprepped bowel prior to resection with a small amount of spillage intraoperatively) until cultures result Quality VTE Deep Vein Thrombosis/Pulmonary Embolism Present on Admission: No
[2024-01-06] MEDS: PIPERACILLIN/TAZO 4.5 GM in SODIUM CHLORIDE 0.9% 100 ML IV (10:36)
--- NOTE | 2024-01-06 10:48 | PT.IIE ---
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/24) Unspecified intestinal obstruction, unspecified as to partial versus complete obstruction (01/05/24) Surgery Performed Operation Date: 01/05/24 14:30 Actual Procedures p RIGHT HEMICOLECTOMY - Naveen Fermin MD Surgical History (Last Reviewed 01/05/24 @ 13:25 by Naveen Fermin MD) H/O: hysterectomy Hx of tonsillectomy Previous back surgery Status post lumbar and lumbosacral fusion by anterior technique Medical History (Last Reviewed 01/05/24 @ 13:25 by Naveen Fermin MD) Facet arthropathy, lumbar Gait instability Herniated nucleus pulposus, lumbar Osteoporosis Sacral back pain Physical Therapy Inpatient Evaluation/Re-Eval M1 PT/OT-IP Prior Functional Status Start: 01/06/24 09:07 Freq: NEEDED Status: Active Protocol: Document 01/06/24 10:15 MB (Rec: 01/06/24 10:48 MB [id number]) Medical Review Prior Functional Status Medical History Reviewed Yes Diet/Fluid Consistency Regular Communication WNLs Mobility and Gait Mod I with 4WRW Activities of Daily Living and IADL's Mod I and pt's daughter lives beside her in [facility] and daughter does the driving Social History Household Members none Living Arrangements House Number of Floors (Floors) One Floor Number of Stairs To Enter/Railing? 2 steps to enter and not clear today about rail Home Environment Standard Height Toilet,Walk in Shower Home Equipment Four Wheel Walker,Shower Seat with Backrest,Hand Held Shower Employment Status Retired Additional Social History Comment Pt reports 2-3 three times that she was not expecting to get up with PT today and also communicates that this makes her agitated. Daughter nearby for short assessment. M2 PT-IP Current Condition Start: 01/06/24 09:07 Freq: NEEDED Status: Active Protocol: Document 01/06/24 10:15 MB (Rec: 01/06/24 10:48 MB [id number]) Physical Therapy Current Condition Current Condition Evaluation Date 01/06/24 Treatment Diagnosis R hemicolectomy d/t cecal mass , lymphadenopathy, hepatic mass M3 PT-IP Subjective Start: 01/06/24 09:07 Freq: NEEDED Status: Active Protocol: Document 01/06/24 10:15 MB (Rec: 01/06/24 10:48 MB [id number]) Subjective Physical Therapy Visit Type Type Initial Evaluation Visit Start Time 10:15 Visit Stop Time 10:32 Number of FRUIT STUFFER Visits 0 Physical Therapy Visit Comments Patient Comments Pt states that she was not expecting to get up with PT today. She is sitting EOB with dangling feet and poor back support and ability to sit up right and PT encourages pt and daughter that it is much better to sit upright in chair with feet on floor and back supported after abdominal surgery than stay and eat in her current unsupported position. Therapy Pain Assessment Pain When Pain Assessed At Rest Pain Present Pain Present Pain Reported Location low abd Intensity 6 Scale Used Numeric (0 - 10) M4 PT-IP Mobility and Gait Start: 01/06/24 09:07 Freq: NEEDED Status: Active Protocol: Document 01/06/24 10:15 MB (Rec: 01/06/24 10:48 MB [id number]) PT-Bed Mobility Assessment Scooting Scooting to Edge of Bed Minimal Assistance PT-Transfer Assessment Sit to and From Stand Sit to and from Stand Moderate Assistance,1 Person Assistance,Use of Upper Extremities Equipment Transfer Assistive Device Gait Belt,Front Wheeled Walker Orthotic/Prosthetic Devices or Brace: No Transfers Transfer Destination Chair Transfer Technique Left side stepping Transfer Ability Level of Assist Moderate Assistance,1 Person Assistance,Use of Upper Extremities Comments Mobility Comments Pt sitting upright and with legs dangling and poor back support EOB upon PT arrival. Pt is reluctantly willing to get up to chair with PT after PT explanation about PT order from surgeon and benefits of sitting up in chair with feet supported on floor and back support with pillow behind her in upright chair to assist with abdominal support, pain and to eat. Gait Assessment Gait Gait Assistance Required: Moderate Assistance,1 Person Assist Distance (Feet) 1 Able to Maintain Weight Bearing Status Yes During Gait Assistive Devices Assistive Device Gait Belt,Front Wheeled Walker Orthotic/Prosthetic Devices or Brace: No Gait Deviations General Gait Pattern Antalgic,Ataxic,Decreased Stride Length,Decreased Feet Clearance,Flexed Trunk,Step-to Gait,Wide Based Gait Factors Limiting Gait Function Factors Limiting Gait Function Decreased Activity Tolerance, Decreased Strength,Difficulty Following Directions,Limited Range of Motion,Pain,Poor Balance,Poor Safety Awareness Comments Gait Comments Pt must cue pt several times to extend through her knees d/ t pt tends to stay flexed at hips and knees with standing. Pt has mild agitation with PT cueing her and she has delayed response to extending through legs. PT-Balance Assessment Sitting Balance and Reactions Static Sitting Balance Ability Fair Dynamic Sitting Balance Ability Fair Standing Balance and Reactions Static Standing Balance Ability Fair Dynamic Standing Balance Ability Poor Device Used RW M5 PT-IP Objective Assessments Start: 01/06/24 09:07 Freq: NEEDED Status: Active Protocol: Document 01/06/24 10:15 MB (Rec: 01/06/24 10:48 MB [id number]) Orientation Orientation/Cognition Level of Alertness Alert Orientation Name,Age,Birthday,Month,Date, Place,Situation Language Function Ability No Deficits Noted Safety Awareness Decreased Safety Awareness Memory Description No Deficits Noted Gross Range of Motion Upper Extremity ROM Impairments Defer to OT Lower Extremity ROM Assessment Within Functional Limits Strength Comments Strength Comments Functional strength sitting EOB and then pt tends to keep legs flexed with standing Sensation Assessment Sensation Gross Sensation WNL M6 PT-IP Treatment Start: 01/06/24 09:07 Freq: NEEDED Status: Active Protocol: Document 01/06/24 10:15 MB (Rec: 01/06/24 10:48 MB [id number]) Physical Therapy Treatment Education Education Provided Precautions,Post-Op Packet, Safety M7 PT-IP Assessment and Plan Start: 01/06/24 09:07 Freq: NEEDED Status: Active Protocol: Document 01/06/24 10:15 MB (Rec: 01/06/24 10:48 MB [id number]) PT Summary Assessment and Plan Potential Rehabilitation Potential Good Status of Condition at Evaluation Evolving Summary Impairments Pain,Strength,Balance,Bed Mobility,Transfers,Gait, Activity Tolerance Progress Towards Goals Slow Progress due to Pain,Slow Progress due to Activity Tolerance Assessment Summary Pt is an 88 y/o female presenting with decreased bed mobility, transfers, stepping and gait s/p new dx of cecal and hepatic masses and now s/p right hemicolectomy last date . Pt's daughter is nearby for evaluation and communicates that pt will likely need SNF at d/c. Pt is somewhat agitated with PT today and states that she was not expecting to get up and it is too soon. Pt sitting in a poorly supported dangling position EOB with her feet not touching the floor and PT ed that is is better for her abdominal incision, back, posture and eating to be up in the chair with feet on floor and back support and she reluctantly agrees to mobility . Pt has some functional weakness with standing and stepping. Recommend ongoing acute and post-acute PT, likely SNF at d/c. Goals Bed Mobility Goal Independent Transfer Goal Independent,Front Wheeled Walker Gait Goal Independent,Front Wheel Walker Gait Distance 75 Other Goals Pt will ascend and descend 2 steps with rail if available at home to allow safe home entrance. Days to Meet Goals 5 Frequency of Treatment Frequency Of Treatment Once a Day Treatment Plan Physical Therapy Treatment Plan Bed Mobility Training,Transfer Training,Gait Training, Therapeutic Exercise,Balance Retraining,Post Op Education, Discharge Planning,Hot or Cold Pack,Neuromuscular Re-ed, Coordination Retraining,Manual Therapy Precautions Abdominal Surgery Precautions Log Roll,Lifting Restrictions, Gait Belt above Incisional Area Weight Bearing Status Weight Bearing Status Weight Bear as Tolerated Recommendations To Nursing Amount of Assist Needed 2 Person Assist Discharge Recommendations PT Discharge Recommendations SNF Rehab Other Discharge Recommendations SNF vs home, likely SNF Transportation Needs at Discharge Private Vehicle,Wheelchair/ Cabulance
[2024-01-06] MEDS: ACETAMINOPHEN 325 MG TABLET 650 MG PO (11:10)
[2024-01-06] MEDS: SODIUM CHLORIDE 0.9% 250 ML 21 ML IV (13:59)
[2024-01-06] MEDS: PIPERACILLIN/TAZO 3.375 GM in SODIUM CHLORIDE 0.9% 100 ML IV (14:03)
[2024-01-06] MEDS: IBUPROFEN 600 MG TABLET PO (14:21)
--- NOTE | 2024-01-06 15:48 | CM.DANOTE ---
Addendum entered by BC Ramirez 01/07/24 09:09: ADD: Discussed SNF referral with Maribel at [facility] this morning; Maribel will review and likely begin [employer] auth today. CM team following closely for coordination. TERESA Original Note: Initial DCP Assessment Note Pt is a 88 yo female, resident of [place], now POD#1 from ex lap right hemicolectomy for obstructing colon cancer PCP: Jessica Martines Payer: [facility] Reviewed chart, met w/patient, her daughter Sindi and her grandson. Introduced self and role. Patient lives alone, ambulates with walker at baseline, daughter Sindi lives next door. Patient has poor tolerance to activity at baseline r/t chronic back pain. Patient and daughter concerned that patient may not be safe for return home upon discharge and request referral to [facility]. Reviewed process of SNF referral and need for contracted SNF and SNF auth through [employer], patient/family state understanding. This TEAMSITE DEVELOPER unable to complete SNF referral today, CM team to follow up Sunday01.07.24 CM team will plan to follow closely for coordination of DCP; need referral to SNF and SNF auth secured [facility] [place] Discharge Planning/Care Management CM Discharge Assessment Start: 01/06/24 15:46 Freq: Status: Active Protocol: Document 01/06/24 15:46 TERESA (Rec: 01/06/24 15:48 TERESA [id number]) Discharge Planning Assessment Assigned Stock Worker BC [place] DPOA/Assigned Designee Name velvet Priest Contact Information [phone] Advance Directives? Yes Advance Directives on File No History Provided By Patient,Family Member,Medical Record Prior Living Arrangements House Household Members none Type of transporation used prior to Relies on Others admit Independent with ADL's Yes: Poor activity tolerance Is patient alert and oriented? Yes Patient/Family Preference [facility] Barriers to Discharge Yes Comment Daughter does not feel she can safely manage patient's current care needs Discharge Plan [facility] Transportation Arrangement TBD Referrals Initiated Other Additional Comment Need referral to [facility] still SNF/HH Preference [facility] Has Agency SNF been contacted No
[2024-01-06] MEDS: LIDOCAINE 5% PATCH 1 EACH TOP (17:07)
[2024-01-06] MEDS: SODIUM CHLORIDE 0.9% FLUSH 10 ML IV (21:15)
[2024-01-07] VITALS (38 sets, daily range): BP systolic 114–234; BP diastolic 59–118; PULSE 85–125; RESP 17–24; TEMP 36–38.3; O2SAT 87–100
--- NOTE | 2024-01-07 00:30 | PC.NURSE ---
0015--pt has not voided since catheter removal at 1530; she is not receiving IV fluids, nor is she drinking much; bladder scan showed 66ml; Dr Fermin notified; NS started at 75ml/hr; pt has purewick in place; will continue to monitor and check labs in the morning
[2024-01-07] MEDS: SODIUM CHLORIDE 0.9% 500 ML 75 ML IV (01:25)
[2024-01-07] MEDS: OXYCODONE IR 5 MG TABLET PO ×2 (08:31→17:35)
[2024-01-07] MEDS: ACETAMINOPHEN 325 MG TABLET 650 MG PO ×2 (08:31→17:35)
[2024-01-07] MEDS: ENOXAPARIN 40 MG/0.4 ML SYRINGE SUBCUT (08:31)
[2024-01-07] MEDS: SODIUM CHLORIDE 0.9% FLUSH 10 ML IV ×2 (10:15→21:02)
[2024-01-07] MEDS: IBUPROFEN 600 MG TABLET PO (11:01)
--- NOTE | 2024-01-07 11:57 | OT.IP.EVAL ---
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) Unspecified intestinal obstruction, unspecified as to partial versus complete obstruction (01/05/24) Surgery Performed Operation Date: 01/05/24 14:30 Actual Procedures p RIGHT HEMICOLECTOMY - Naveen Fermin MD Past Medical History (Last Reviewed 01/05/24 @ 13:25 by Naveen Fermin MD) Facet arthropathy, lumbar Gait instability Herniated nucleus pulposus, lumbar Osteoporosis Sacral back pain Surgical History (Last Reviewed 01/05/24 @ 13:25 by Naveen Fermin MD) H/O: hysterectomy Hx of tonsillectomy Previous back surgery Status post lumbar and lumbosacral fusion by anterior technique Occupational Therapy Inpatient Evaluation/Re-Eval M1 PT/OT-IP Prior Functional Status Start: 01/06/24 09:07 Freq: NEEDED Status: Active Protocol: Document 01/07/24 13:27 CGR (Rec: 01/07/24 13:42 CGR [id number]) Medical Review Prior Functional Status Medical History Reviewed Yes Diet/Fluid Consistency Regular Communication Pt is an effective verbal communicator. Mobility and Gait Mod I with 4WW Activities of Daily Living and IADL's Mod I and pt's daughter lives beside her in [facility] and daughter does the driving. Pt has a cleaning service that comes every two weeks. Social History Household Members none Living Arrangements House Number of Floors (Floors) One Floor Number of Stairs To Enter/Railing? 2 steps to enter and not clear today about rail Home Environment Standard Height Toilet,Walk in Shower Home Equipment Four Wheel Walker,Shower Seat with Backrest,Hand Held Shower Employment Status Retired Additional Social History Comment Pt reports 2-3 three times that she was not expecting to get up with PT today and also communicates that this makes her agitated. Daughter nearby for short assessment. M2 OT-IP Current Condition Start: 01/07/24 13:27 Freq: Status: Active Protocol: Document 01/07/24 13:27 CGR (Rec: 01/07/24 13:42 CGR [id number]) Occupational Therapy Current Condition Current Condition Evaluation Date 01/07/24 Treatment Diagnosis Exlap, R hemicolectomy for obstructing colon CA Diagnosis Onset Date 01/05/24 M3 OT- IP Subjective and Pain Start: 01/07/24 13:27 Freq: Status: Active Protocol: Document 01/07/24 13:27 CGR (Rec: 01/07/24 13:42 CGR [id number]) OT- Subjective Occupational Therapy Visit Type Type Initial Evaluation Visit Start Time 11:24 Visit Stop Time 11:57 Notes Partial co-treat with P.T. OT Pain Assessment Pain When Pain Assessed At Rest Pain Present Pain Present Pain Reported Location low abd Intensity 6 Scale Used Numeric (0 - 10) Management Techniques Modification of Treatment,Re- positioning,Timing of Activity with Medications M4 OT- IP ADL's Start: 01/07/24 13:27 Freq: Status: Active Protocol: Document 01/07/24 13:27 CGR (Rec: 01/07/24 13:42 CGR [id number]) OT LIC-Pvle-Pveoqpl Comments OT Self-Feeding Comments not meal time OT ADL-Grooming General Evaluation Grooming Ability Standby Assistance Areas Needing Assistance Retrieving/Set-up of Grooming Items,Face Washing Comments OT Grooming Comments seated in chair, pt declined to stand at sink for ADLs OT ADL-Oral Care General Eval Oral Care Ability Standby Assistance Areas of Assistance Brushing Teeth,Retrieving/Set- Up of Items Comments Oral Care Comments seated in chair, pt declined to stand at sink for ADLs OT ADL-Dressing Comments OT Dressing Comments not performed OT ADL-Toileting Comments OT Toileting Comments Pt with purewick in place when threapy entered. Purewick removed for mobility. OT ADL-Bathing Comments OT Bathing Comments not performed M5 OT- IP IADL's Start: 01/07/24 13:27 Freq: Status: Active Protocol: Document 01/07/24 13:27 CGR (Rec: 01/07/24 13:42 CGR [id number]) OT-Instrumental Activities of Daily Living Deficits IADL Deficits Identified No Deficits Home Safety Awareness Awareness of Need for Assistance at Home Good Awareness Ability to Problem Solve Emergency Able to Problem Solve Situations Medication Management Medication Management No Deficits Identified Money Management Money Management No Deficits Identified Meal Preparation Meal Preparation Caregiver Provides Assist Corporate Planner Corporate Planner Caregiver Provides Assist Driving Driving Comments Daughter does all of the driving. M6 OT- IP Functional Cognition Start: 01/07/24 13:27 Freq: Status: Active Protocol: Document 01/07/24 13:27 CGR (Rec: 01/07/24 13:42 CGR [id number]) Cognitive Factors Limiting Selfcare Function Cognitive Ability Level of Alertness Alert Patient Orientation Name,Age,Birthday,Month,Date, Year,Day of Week,Place, Situation Attention Span Ability Capable of Focused Attention, Capable of Sustained Attention OT- Vision and Hearing OT- Hearing Assessment OT- Hearing Assessment WFL OT- Vision Assessment Vision History Cataracts Visual Acuity WFL Visual Attentiveness WFL Occular Pursuits WFL Visual Convergence Impaired Vision Assessment Comments pt had cateract sx in the past M7 OT- IP Mobility and Balance Start: 01/07/24 13:27 Freq: Status: Active Protocol: Document 01/07/24 13:27 CGR (Rec: 01/07/24 13:42 CGR [id number]) OT- Bed Mobility Assessment Rolling Type of Rolling Log Rolling Level of Assistance Maximum Assistance,1 Person Assistance Supine to Sit Supine to Sit Assist Maximum Assistance,1 Person Assistance Scooting Scooting to Edge of Bed Standby Assistance,1 Person Assistance OT-Transfer Assessment Sit to and From Stand Sit to and from Stand Minimal Assistance Transfers Transfer Ability Minimal Assistance Technique Transfer Destination Bed,Chair Transfer Technique Stand Step Pivot Devices Transfer Assistive Devices Gait Belt,Front Wheeled Walker Comments Mobility Comments Pt had multiple LOB with mobility. Pt would benefit from further walker training or trying with a 4ww which is her normal at home. OT- Balance Assessment Sitting Balance and Reactions Static Sitting Balance Ability Good Dynamic Sitting Balance Ability Good M8 OT- IP Objective Assessments Start: 01/07/24 13:27 Freq: Status: Active Protocol: Document 01/07/24 13:27 CGR (Rec: 01/07/24 13:42 CGR [id number]) OT Gross Range of Motion Upper Extremity Range of Motion Assessment Within Functional Limits OT Strength Upper Extremity Strength Assessment Within Functional Limits Comments Strength Comments B shlds 3+/5 B arms 4-/5 B hands 4-/5 OT- Coordination Assessment Upper Extremity Finger to Nose Test Within Functional Limits Finger Tapping Test Within Functional Limits OT-Muscle Tone Assessment Muscle Tone WNL Yes OT Sensation Assessment Edema Edema Absent M9 OT- IP Assessment and Plan Start: 04/08/24 13:27 Freq: Status: Active Protocol: Document 01/07/24 13:27 CGR (Rec: 01/07/24 13:42 CGR [id number]) OT Summary Assessment and Plan Potential Rehabilitation Potential Good Analytic Complexity at Evaluation Moderate Summary OT Impairments Pain,Strength,Balance, Functional Mobility,Grooming, Dressing,Toileting,Bathing, Toilet Transfers,Shower Transfers,Activity Tolerance Progress Towards Goals Progressing Toward Goals Assessment Summary Pt presents as a moderate complexity evaluation s/p admit for ex lap with R hemicolectory for obstructing colon CA. Pt was agreeable to minimal activity with therapy. Pt appears fatigued and desaturates with movement. Pt currently would need assist with all aDLs as her activity tolerance is poor. Pt will benefit from SNF upon discharge. Goals Self-Feeding Goal Independent Grooming Goal Independent Dressing Goal Independent,Unloader Operator,Sock Aid Toileting Goal Independent Bathing Goal Independent Toilet Transfer Goal Independent Shower Transfer Goal Independent Days to Meet Goals 20 Frequency of Treatment Frequency Of Treatment Once a Day Treatment Plan OT Treatment Plan ADL Training,Functional Mobility,Patient/Family Education,Discharge Planning Other Treatment Recommendations and Next LB dressing, bed mobility with Treatment Focus use of bed as pt has an adjustable bed at home. Discharge Recommendations OT Discharge Recommendations SNF Rehab Transportation Needs at Discharge Wheelchair/Cabulance
--- NOTE | 2024-01-07 12:00 | PT.IPTN ---
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/24) Unspecified intestinal obstruction, unspecified as to partial versus complete obstruction (01/05/24) Surgery Performed Operation Date: 01/05/24 14:30 Actual Procedures p RIGHT HEMICOLECTOMY - Naveen Fermin MD Physical Therapy Treatment Note M2 PT-IP Current Condition Start: 01/06/24 09:07 Freq: NEEDED Status: Active Protocol: Document 01/06/24 10:15 MB (Rec: 01/06/24 10:48 MB [id number]) Physical Therapy Current Condition Current Condition Evaluation Date 01/06/24 Treatment Diagnosis R hemicolectomy d/t cecal mass , lymphadenopathy, hepatic mass M3 PT-IP Subjective Start: 01/06/24 09:07 Freq: NEEDED Status: Active Protocol: Document 01/07/24 11:20 MB (Rec: 01/07/24 12:00 MB [id number]) Subjective Physical Therapy Visit Type Type Treatment Note Visit Start Time 11:20 Visit Stop Time 11:53 Number of SENIOR ARCHITECTURAL DESIGNER Visits 0 Physical Therapy Visit Comments Patient Comments Pt reports 4/10 abdominal pain at rest and 5-6/10 with mobility. Therapy Pain Assessment Pain When Pain Assessed During Mobility Pain Present Pain Present Pain Reported Location low abd Intensity 6 Scale Used Numeric (0 - 10) M4 PT-IP Mobility and Gait Start: 01/06/24 09:07 Freq: NEEDED Status: Active Protocol: Document 01/07/24 11:20 MB (Rec: 01/07/24 12:00 MB [id number]) PT-Bed Mobility Assessment Rolling Type of Rolling Bilateral Level of Assist Maximal Assistance,1 Person Assistance,2 Person Assistance Supine to Sit Supine to Sit Maximum Assistance,1 Person Assistance,2 Person Assistance ,Bedrails Sit to Supine Sit to Supine Maximum Assistance,1 Person Assistance,2 Person Assistance ,Bedrails Scooting Scooting to Edge of Bed Minimal Assistance PT-Transfer Assessment Sit to and From Stand Sit to and from Stand Minimal Assistance,1 Person Assistance,Use of Upper Extremities Equipment Transfer Assistive Device Gait Belt,Front Wheeled Walker Orthotic/Prosthetic Devices or Brace: No Transfers Transfer Destination Chair Transfer Technique Left side stepping Transfer Ability Level of Assist Minimal Assistance,1 Person Assistance,Use of Upper Extremities Comments Mobility Comments Cues for hand placement for transfers. Pt is tachycardic with mobility with HR up to 125 BPM and her O2 sats drop to 86-87% and recover to the 90s on RA with mobility Gait Assessment Gait Gait Assistance Required: Minimum Assistance,1 Person Assist Distance (Feet) 30 Able to Maintain Weight Bearing Status Yes During Gait Assistive Devices Assistive Device Gait Belt,Front Wheeled Walker Orthotic/Prosthetic Devices or Brace: No Gait Deviations General Gait Pattern Antalgic,Ataxic,Decreased Stride Length,Decreased Feet Clearance,Flexed Trunk,Step-to Gait,Wide Based Gait Factors Limiting Gait Function Factors Limiting Gait Function Decreased Activity Tolerance, Decreased Strength,Difficulty Following Directions,Limited Range of Motion,Pain,Poor Balance,Poor Safety Awareness Comments Gait Comments Cues to push through the walker and to stand up straight and pt with some imbalance when changing directions with gait and retropulsion PT-Balance Assessment Sitting Balance and Reactions Static Sitting Balance Ability Good Dynamic Sitting Balance Ability Fair Standing Balance and Reactions Static Standing Balance Ability Fair Dynamic Standing Balance Ability Fair Device Used RW M5 PT-IP Objective Assessments Start: 01/06/24 09:07 Freq: NEEDED Status: Active Protocol: Document 01/06/24 10:15 MB (Rec: 01/06/24 10:48 MB [id number]) Orientation Orientation/Cognition Level of Alertness Alert Orientation Name,Age,Birthday,Month,Date, Place,Situation Language Function Ability No Deficits Noted Safety Awareness Decreased Safety Awareness Memory Description No Deficits Noted Gross Range of Motion Upper Extremity ROM Impairments Defer to OT Lower Extremity ROM Assessment Within Functional Limits Strength Comments Strength Comments Functional strength sitting EOB and then pt tends to keep legs flexed with standing Sensation Assessment Sensation Gross Sensation WNL M6 PT-IP Treatment Start: 01/06/24 09:07 Freq: NEEDED Status: Active Protocol: Document 01/07/24 11:20 MB (Rec: 01/07/24 12:00 MB [id number]) Physical Therapy Treatment Education Education Provided Precautions,Post-Op Packet, Safety M7 PT-IP Assessment and Plan Start: 01/06/24 09:07 Freq: NEEDED Status: Active Protocol: Document 01/07/24 11:20 MB (Rec: 01/07/24 12:00 MB [id number]) PT Summary Assessment and Plan Potential Rehabilitation Potential Good Status of Condition at Evaluation Evolving Summary Impairments Pain,Strength,Balance,Bed Mobility,Transfers,Gait, Activity Tolerance Progress Towards Goals Slow Progress due to Pain,Slow Progress due to Activity Tolerance Assessment Summary Practice and cues and heavy assistance with log rolling today. Pt improves with transfers and gait and con't with some imbalance with changing movement directions when standing with use of RW. Goals Bed Mobility Goal Independent Transfer Goal Independent,Front Wheeled Walker Gait Goal Independent,Front Wheel Walker Gait Distance 75 Other Goals Pt will ascend and descend 2 steps with rail if available at home to allow safe home entrance. Days to Meet Goals 5 Frequency of Treatment Frequency Of Treatment Once a Day Treatment Plan Physical Therapy Treatment Plan Bed Mobility Training,Transfer Training,Gait Training, Therapeutic Exercise,Balance Retraining,Post Op Education, Discharge Planning,Hot or Cold Pack,Neuromuscular Re-ed, Coordination Retraining,Manual Therapy Precautions Abdominal Surgery Precautions Log Roll,Lifting Restrictions, Gait Belt above Incisional Area Weight Bearing Status Weight Bearing Status Weight Bear as Tolerated Recommendations To Nursing Amount of Assist Needed 1 Person Assist Discharge Recommendations PT Discharge Recommendations SNF Rehab Transportation Needs at Discharge Private Vehicle,Wheelchair/ Cabulance
--- NOTE | 2024-01-07 12:19 | PM.PN.1 ---
Subjective Subjective Date Patient Seen: 01/07/24 Interval history: Tolerating some clear liquids No flatus yet Exam Vital Signs (past 8 hours): - 01/07/24 04:20 01/07/24 04:20 01/07/24 05:00 Temperature Pulse Rate 97 H Respiratory Rate Blood Pressure 114/59 L Pulse Oximetry 98 96 Oxygen Delivery Method Nasal Cannula Oxygen Flow Rate 2 Fraction of Inspired Oxygen 01/07/24 05:00 01/07/24 06:00 01/07/24 07:00 Temperature Pulse Rate 92 H 91 H Respiratory Rate Blood Pressure Pulse Oximetry 91 93 Oxygen Delivery Method Nasal Cannula Oxygen Flow Rate Fraction of Inspired Oxygen 01/07/24 07:00 01/07/24 07:09 01/07/24 08:00 Temperature Pulse Rate 97 H 94 H 85 Respiratory Rate Blood Pressure Pulse Oximetry 100 100 100 Oxygen Delivery Method Nasal Cannula Oxygen Flow Rate 2 Fraction of Inspired Oxygen 28 01/07/24 09:00 01/07/24 09:00 01/07/24 09:01 Temperature Pulse Rate 109 H 108 H Respiratory Rate Blood Pressure Pulse Oximetry 98 98 97 Oxygen Delivery Method Nasal Cannula Oxygen Flow Rate 2 Fraction of Inspired Oxygen 01/07/24 09:01 01/07/24 10:00 Temperature 97.7 F Pulse Rate 106 H Respiratory Rate 18 Blood Pressure 174/74 H Pulse Oximetry 98 Oxygen Delivery Method Oxygen Flow Rate Fraction of Inspired Oxygen Fraction of Inspired Oxygen 28 SaO2/FiO2 Ratio 357 Oxygen Delivery Method Nasal Cannula Oxygen Flow Rate 2 Narrative Exam Narrative: Dressing is clean and dry Abdomen is soft Objective Labs 01/05/24 09:57 01/05/24 09:57 PFSH Medical History Osteoporosis Sacral back pain Gait instability Herniated nucleus pulposus, lumbar Facet arthropathy, lumbar Surgical History Status post lumbar and lumbosacral fusion by anterior technique H/O: hysterectomy Hx of tonsillectomy Previous back surgery Family History Unknown No pertinent family history Social History household members: none Smoking Status: Never smoker Assessment & Plan Assessment and plan (1) Metastatic colon cancer to liver: Status: Acute Plan Await passage of flatus before advancing diet to regular. Quality VTE Deep Vein Thrombosis/Pulmonary Embolism Present on Admission: No
--- NOTE | 2024-01-07 15:33 | CM.DPNOTE ---
DCP [facility] has secured the SNF auth, they can admit patient tomorrow. PASRR completed. Awaiting transport time. TERESA
[2024-01-07 21:17] LABS: Add Manual Diff / Slide Review NO; Basophils Absolute Auto 0 /uL (0-100); Basophils Percent Auto 0.2 % (0-2); Eosinophils Absolute Auto 200 /uL (0-450); Hematocrit 33.3 % (36-46); Hemoglobin 10.9 g/dL (12.0-16.0); Lymphocytes Absolute Auto 1000 /uL (1100-4500); Lymphocytes Percent Auto 4.5 % (25-40); Mean Corpuscular HGB Conc 32.7 % (30-36); Mean Corpuscular Hemoglobin 29.9 PG (26-34); Mean Corpuscular Volume 91.3 fL (80-100); Monocytes Absolute Auto 1400 /uL (0-900); Monocytes Percent Auto 6.4 % (3-14); Neutrophils Absolute Auto 19600 /uL (1500-7000); Neutrophils Percent Auto 87.9 % (50-75); Platelet Count 220 X10^3/uL (150-400); Red Blood Cell Count 3.65 X10^6/uL (4.0-5.2); White Blood Cell Count 22.2 X10^3/uL (4.5-11.0)
--- NOTE | 2024-01-07 21:56 | DI.CT.S_ITS ---
PROCEDURE: CT ABDOMEN PELVIS W CON INDICATIONS: poss perf TECHNIQUE: After the administration of intravenous contrast, axial sections acquired from the lung bases to the pubic symphysis. Coronal and sagittal reformats were performed. For radiation dose reduction, the following was used: automated exposure control, adjustment of mA and/or kV according to patient size. COMPARISON: [facility], CT, CT ABDOMEN PELVIS W CON, 01/05/2024, 10:22. FINDINGS: Image quality: Diagnostic. Lower Chest: Right basilar atelectasis. Small hiatal hernia. Multiple surgical clips in the left breast. ABDOMEN: Liver: There is a large mass in the hepatic dome measuring 7.7 x 7.5 x 5.1 cm. Gallbladder: There is a gallstone. No gallbladder wall thickening or pericholecystic fluid. Biliary ducts: No biliary dilation. Pancreas: No ductal dilation. Spleen: Size is within normal limits. Adrenal Glands: No adrenal nodules. Kidneys and Ureters: No hydronephrosis. No solid mass. No complex renal cystic lesion which requires follow up. Stomach and Bowel: Postsurgical changes with partial colectomy. Stomach is distended with an air-fluid level. There is fluid within small intestine with air-fluid levels. No findings to suggest high-grade small bowel obstruction. But early small bowel obstruction cannot be excluded Diverticulosis without acute diverticulitis. Peritoneum: There is small amount free intraperitoneal fluid. Tiny amount of free air. Ventral Wall: No significant ventral hernia. Abdominal Nodes: No retroperitoneal or mesenteric adenopathy by size criteria. Vessels: Aorta and inferior vena cava are normal in size. PELVIS: Pelvic Organs: Unremarkable. Bladder: No bladder wall thickening, accounting for underdistention. Pelvic Nodes: No enlarged lymph nodes. Miscellaneous: No inguinal hernias are seen. Bones: No aggressive osseous abnormality. Degenerative and postsurgical changes in lumbar spine. IMPRESSION: 1. A large hepatic mass in the hepatic dome measuring 7.7 x 7.5 x 5.1 cm, consistent with metastasis. 2. Postsurgical changes with partial colectomy. Tiny extraluminal air in peritoneal cavity is most likely postsurgical in nature. 3. Distended stomach with an air-fluid level. There is fluid filled small intestine with air-fluid levels. Differential diagnoses are ileus versus early small bowel obstruction. 4. Diverticulosis without acute diverticulitis. 5. Right basilar atelectasis. 6. A small amount of free fluid is present. No organized rim enhancing or drainable fluid collections. Dictated by: Tiara Rivas M.D. on 01/07/2024 at 22:47 Approved by: Tiara Rivas M.D. on 01/07/2024 at 22:56
[2024-01-07 22:10] LABS: BUN Creatinine Ratio 21.7 (6-22); Blood Urea Nitrogen 10 mg/dL (7-17); Carbon Dioxide 32 mmol/L (22-32); Chloride 101 mmol/L (98-107); Estimated Glomerular Filt Rate > 60 mL/min (>60); Glucose 141 mg/dL (80-110); HEMOLYSIS < 15 (0-50); Potassium 3.6 mmol/L (3.4-5.1); Sodium 134 mmol/L (137-145)
[2024-01-07] MEDS: PIPERACILLIN/TAZO 3.375 GM in SODIUM CHLORIDE 0.9% 100 ML IV (22:40)
[2024-01-07] MEDS: SODIUM CHLORIDE 0.9% 1,000 ML 1000 ML IV (22:41)
[2024-01-07] MEDS: LABETALOL 20 MG/4 ML SYRINGE 10 MG IV (23:23)
[2024-01-07] MEDS: HYDROMORPHONE 0.5 MG INJ IV (23:56)
[2024-01-08] VITALS (36 sets, daily range): BP systolic 156–219; BP diastolic 69–103; PULSE 78–121; RESP 15–24; TEMP 36.3–37.3; O2SAT 88–99
--- NOTE | 2024-01-08 01:21 | PC.NURSE ---
2049--b/p 215/92, HR-122, T-101 temporal scan; pt denies c/o pain or nausea; abd firm and distended; hypoactive bowel sounds; Dr George notified and orders rec'd 2104--labs drawn and EKG done; left arm iv leaking when flushed; site dc'd and 20g iv started to right forearm; pt tolerated well 2144--2144--lab and EKG results called to Dr George; b/p-218/92, HR-119; orders rec'd; pt NPO, zosyn and NS 1l bolus ordered; pt for ct abd/pelvis; daughter remains at bedside and she and pt updated on plan of care 2237--CT done; pt's o2 sat 87% and she was placed on o2/2l/nc 0--b/p 234/107, Hr-128; CT results and VS called to Dr George; orders rec'd for labetalol
[2024-01-08 04:51] LABS: Add Manual Diff / Slide Review NO; Basophils Absolute Auto 0 /uL (0-100); Basophils Percent Auto 0.2 % (0-2); Eosinophils Absolute Auto 0 /uL (0-450); Eosinophils Percent Auto 0.2 % (2-4); Hematocrit 34.7 % (36-46); Hemoglobin 11.2 g/dL (12.0-16.0); Lymphocytes Absolute Auto 900 /uL (1100-4500); Lymphocytes Percent Auto 4.1 % (25-40); Mean Corpuscular HGB Conc 32.3 % (30-36); Mean Corpuscular Hemoglobin 29.6 PG (26-34); Mean Corpuscular Volume 91.7 fL (80-100); Monocytes Absolute Auto 1100 /uL (0-900); Monocytes Percent Auto 5.4 % (3-14); Neutrophils Absolute Auto 19100 /uL (1500-7000); Neutrophils Percent Auto 90.1 % (50-75); Platelet Count 205 X10^3/uL (150-400); Red Blood Cell Count 3.79 X10^6/uL (4.0-5.2); Red Cell Distribution Width 12.8 % (11.6-14.8); White Blood Cell Count 21.2 X10^3/uL (4.5-11.0)
[2024-01-08 05:29] LABS: BUN Creatinine Ratio 17.8 (6-22); Blood Urea Nitrogen 8 mg/dL (7-17); Calcium 8.6 mg/dL (8.4-10.2); Carbon Dioxide 31 mmol/L (22-32); Chloride 101 mmol/L (98-107); Estimated Glomerular Filt Rate > 60 mL/min (>60); Glucose 140 mg/dL (80-110); HEMOLYSIS < 15 (0-50); Potassium 3.6 mmol/L (3.4-5.1); Sodium 135 mmol/L (137-145)
[2024-01-08] MEDS: PIPERACILLIN/TAZO 3.375 GM in SODIUM CHLORIDE 0.9% 100 ML IV ×3 (05:51→22:49)
--- NOTE | 2024-01-08 08:34 | DI.RAD.S_ITS ---
PROCEDURE: XR CHEST 1V INDICATIONS: leukocytosis, fever TECHNIQUE: One view of the chest was acquired. COMPARISON: [facility], CT, CT ABDOMEN PELVIS W CON, 01/07/2024, 22:16. [facility], CR, CHEST 2 VIEW, 06/12/2015, 10:58. FINDINGS: Surgical changes and devices: None. Lungs and pleura: Streaky right lower lobe opacity. Minimal bilateral effusions. Mediastinum: Mediastinal contours appear normal. Heart size is normal. Bones and chest wall: No suspicious bony lesions. Overlying soft tissues appear unremarkable. IMPRESSION: Streaky right lower opacity. This could represent developing pneumonia or potentially atelectasis. Recommend interval follow-up to document resolution. Minimal bilateral effusions. Dictated by: Emily Almanzar M.D. on 01/08/2024 at 9:40 Approved by: Emily Almanzar M.D. on 01/08/2024 at 9:46
[2024-01-08 08:50] LABS: Alanine Aminotransferase 27 IU/L (<35); Albumin 3.1 g/dL (3.5-5.0); Alkaline Phosphatase 103 U/L (38-126); Aspartate Aminotransferase 34 IU/L (14-36); BUN Creatinine Ratio 16.7 (6-22); Bilirubin Total 0.6 mg/dL (0.2-1.3); Blood Urea Nitrogen 8 mg/dL (7-17); Calcium 8.6 mg/dL (8.4-10.2); Carbon Dioxide 31 mmol/L (22-32); Chloride 100 mmol/L (98-107); Estimated Glomerular Filt Rate > 60 mL/min (>60); Globulin 3.2 g/dL (1.7-4.1); Glucose 113 mg/dL (80-110); HEMOLYSIS < 15 (0-50); Potassium 3.4 mmol/L (3.4-5.1); Sodium 134 mmol/L (137-145); Total Protein 6.3 g/dL (6.3-8.2)
[2024-01-08] MEDS: ENOXAPARIN 40 MG/0.4 ML SYRINGE SUBCUT (09:33)
[2024-01-08 09:35] LABS: Procalcitonin 1.19 ng/mL (<0.5)
[2024-01-08] MEDS: VANCOMYCIN 1,250 MG/250 ML PIGGYBACK 250 MG IV ×2 (09:37→21:17)
[2024-01-08] MEDS: SODIUM CHLORIDE 0.9% FLUSH 10 ML IV ×4 (09:38→21:16)
[2024-01-08] MEDS: HYDROMORPHONE 0.5 MG INJ IV ×3 (10:11→21:16)
[2024-01-08] MEDS: POTASSIUM CHLORIDE IN WATER 10 MEQ/100 ML PIGGYBACK 100 MEQ IV ×2 (11:28→12:51)
--- NOTE | 2024-01-08 12:10 | PT.IPTN ---
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) Unspecified intestinal obstruction, unspecified as to partial versus complete obstruction (01/05/24) Surgery Performed Operation Date: 01/05/24 14:30 Actual Procedures p RIGHT HEMICOLECTOMY - Naveen Fermin MD Physical Therapy Treatment Note M2 PT-IP Current Condition Start: 01/06/24 09:07 Freq: NEEDED Status: Active Protocol: Document 01/06/24 10:15 MB (Rec: 01/06/24 10:48 MB [id number]) Physical Therapy Current Condition Current Condition Evaluation Date 01/06/24 Treatment Diagnosis R hemicolectomy d/t cecal mass , lymphadenopathy, hepatic mass M3 PT-IP Subjective Start: 01/06/24 09:07 Freq: NEEDED Status: Active Protocol: Document 01/08/24 13:11 TS (Rec: 01/08/24 13:24 TS [id number]) Subjective Physical Therapy Visit Type Type Treatment Note Visit Start Time 12:10 Visit Stop Time 12:25 Number of DEPUTY CORONER Visits 1 Physical Therapy Visit Comments Patient Comments Pt is agreeable to PT. M4 PT-IP Mobility and Gait Start: 01/06/24 09:07 Freq: NEEDED Status: Active Protocol: Document 01/08/24 13:11 TS (Rec: 01/08/24 13:24 TS [id number]) PT-Bed Mobility Assessment Rolling Type of Rolling Log Rolling Level of Assist Moderate Assistance,1 Person Assistance Supine to Sit Supine to Sit Maximum Assistance,1 Person Assistance Scooting Scooting to Edge of Bed Minimal Assistance PT-Transfer Assessment Sit to and From Stand Sit to and from Stand Contact Guard Assistance Equipment Transfer Assistive Device Gait Belt,Front Wheeled Walker Orthotic/Prosthetic Devices or Brace: No Comments Mobility Comments Pt resting in bed, HR 99 Spo2 94%. Logroll to L side ModA and cues for sequencing. Supine to sit MaxA for uprighting trunk. STS from bed CGA with use of FWW. Stand step pivot to chair CGA with management of lines. Pt sat in chair, performed knee flex/ ext, ankle pumps and seated marches. Pt declined further ambulation. Pt was left in chair, all needs met. Gait Assessment Gait Gait Assistance Required: Contact Guard Assist,1 Person Assist Distance (Feet) 5 Able to Maintain Weight Bearing Status Yes During Gait Assistive Devices Assistive Device Gait Belt,Front Wheeled Walker Orthotic/Prosthetic Devices or Brace: No Gait Deviations General Gait Pattern Antalgic,Ataxic,Decreased Stride Length,Decreased Feet Clearance,Flexed Trunk,Step-to Gait,Wide Based Gait Factors Limiting Gait Function Factors Limiting Gait Function Decreased Activity Tolerance, Decreased Strength,Difficulty Following Directions,Limited Range of Motion,Pain,Poor Balance,Poor Safety Awareness Comments Gait Comments See mobility comments PT-Balance Assessment Sitting Balance and Reactions Static Sitting Balance Ability Good Dynamic Sitting Balance Ability Good Standing Balance and Reactions Static Standing Balance Ability Fair Dynamic Standing Balance Ability Fair Device Used RW M5 PT-IP Objective Assessments Start: 01/06/24 09:07 Freq: NEEDED Status: Active Protocol: Document 01/06/24 10:15 MB (Rec: 01/06/24 10:48 MB [id number]) Orientation Orientation/Cognition Level of Alertness Alert Orientation Name,Age,Birthday,Month,Date, Place,Situation Language Function Ability No Deficits Noted Safety Awareness Decreased Safety Awareness Memory Description No Deficits Noted Gross Range of Motion Upper Extremity ROM Impairments Defer to OT Lower Extremity ROM Assessment Within Functional Limits Strength Comments Strength Comments Functional strength sitting EOB and then pt tends to keep legs flexed with standing Sensation Assessment Sensation Gross Sensation WNL M6 PT-IP Treatment Start: 01/06/24 09:07 Freq: NEEDED Status: Active Protocol: Document 01/08/24 13:11 TS (Rec: 01/08/24 13:24 TS [id number]) Physical Therapy Treatment Education Education Provided Precautions,Post-Op Packet, Safety M7 PT-IP Assessment and Plan Start: 01/06/24 09:07 Freq: NEEDED Status: Active Protocol: Document 01/08/24 13:11 TS (Rec: 01/08/24 13:24 TS [id number]) PT Summary Assessment and Plan Potential Rehabilitation Potential Good Summary Impairments Pain,Strength,Balance,Bed Mobility,Transfers,Gait, Activity Tolerance Progress Towards Goals Slow Progress due to Pain,Slow Progress due to Activity Tolerance Assessment Summary Nighat continues to require assist with assist with logroll and requires heavy cueing. She is CGA for STS from bed with use of FWW. She declined ambulating further than chair this session. PT is recommending SNF rehab at this time. Goals Bed Mobility Goal Independent Transfer Goal Independent,Front Wheeled Walker Gait Goal Independent,Front Wheel Walker Gait Distance 75 Other Goals Pt will ascend and descend 2 steps with rail if available at home to allow safe home entrance. Days to Meet Goals 5 Frequency of Treatment Frequency Of Treatment Once a Day Treatment Plan Physical Therapy Treatment Plan Bed Mobility Training,Transfer Training,Gait Training, Therapeutic Exercise,Balance Retraining,Post Op Education, Discharge Planning,Hot or Cold Pack,Neuromuscular Re-ed, Coordination Retraining,Manual Therapy Precautions Abdominal Surgery Precautions Log Roll,Lifting Restrictions, Gait Belt above Incisional Area Weight Bearing Status Weight Bearing Status Weight Bear as Tolerated Recommendations To Nursing Amount of Assist Needed 1 Person Assist Discharge Recommendations PT Discharge Recommendations SNF Rehab Transportation Needs at Discharge Private Vehicle,Wheelchair/ Cabulance
[2024-01-08] MEDS: LABETALOL 20 MG/4 ML SYRINGE 10 MG IV ×2 (14:22→21:17)
--- NOTE | 2024-01-08 14:37 | CM.DPC ---
DCP Cont. Reviewed EMR and team rounds for status updates. Per Dr. Fermin, pt declined very rapidly overnight. He plans to speak with pt's dtr later today re: goals of care, possibly home with hospice vs. facility with hospice. SHOT TUBE MACHINE TENDER called [facility] and cancelled her placement for today, the auth for SNF is good for 3-days, so SHOT TUBE MACHINE TENDER will follow closely and keep [facility] updated on plan once the family has made some goals of care decisions for next steps.
--- NOTE | 2024-01-08 16:05 | P.PN_ITS ---
Subjective Subjective Date Patient Seen: 01/08/24 Time Patient Seen: 16:05 Interval history: Hypertensive and tachycardic overnight Leukocytosis 21,[address] abdomen pelvis demonstrates postoperative ileus otherwise expected postoperative intra-abdominal changes. No flatus or BM. Nauseous. Exam Vital Signs (past 8 hours): - 01/08/24 09:00 01/08/24 09:40 01/08/24 09:40 Temperature Pulse Rate 95 H 95 H Respiratory Rate Blood Pressure 208/91 H Pulse Oximetry 95 93 Oxygen Flow Rate 01/08/24 09:43 01/08/24 09:43 01/08/24 11:00 Temperature 97.7 F Pulse Rate 95 H 101 H 95 H Respiratory Rate 15 Blood Pressure 193/88 H 193/88 H Pulse Oximetry 93 94 97 Oxygen Flow Rate 0 01/08/24 14:00 01/08/24 14:04 01/08/24 14:27 Temperature 97.4 F L Pulse Rate 79 Respiratory Rate 21 Blood Pressure 156/69 H 189/93 H 188/82 H Pulse Oximetry 95 Oxygen Flow Rate 0 01/08/24 14:36 01/08/24 14:36 01/08/24 14:52 Temperature Pulse Rate 78 Respiratory Rate 24 Blood Pressure 156/69 H 172/76 H Pulse Oximetry 94 Oxygen Flow Rate 01/08/24 15:00 Temperature Pulse Rate 80 Respiratory Rate 18 Blood Pressure Pulse Oximetry Oxygen Flow Rate Fraction of Inspired Oxygen 28 SaO2/FiO2 Ratio 357 Oxygen Delivery Method Room Air Oxygen Flow Rate 0 Narrative Exam Narrative: General adult woman alert mildly disoriented. Chest nonlabored respiration Cardiac sinus rhythm Abdomen distended appropriately tender to palpation. Midline dressing intact and with small amount of shadowing Objective Labs 01/08/24 04:08 01/08/24 08:30 Labs: Laboratory Results - last 24 hr 01/07/24 01/08/24 01/08/24 21:08 04:08 08:30 WBC 22.2 H 21.2 H RBC 3.65 L 3.79 L Hgb 10.9 L 11.2 L Hct 33.3 L 34.7 L MCV 91.3 91.7 MCH 29.9 29.6 MCHC 32.7 32.3 RDW 13.0 12.8 Plt Count 220 205 Neut % (Auto) 87.9 H 90.1 H Lymph % (Auto) 4.5 L 4.1 L [place] % (Auto) 6.4 5.4 Eos % (Auto) 1.0 L 0.2 L Baso % (Auto) 0.2 0.2 Neut # (Auto) 41514 H 87365 H Lymph # (Auto) 1000 L 900 L [place] # (Auto) 1400 H 1100 H Eos # (Auto) 200 0 Baso # (Auto) 0 0 Sodium 134 L 135 L 134 L Potassium 3.6 3.6 3.4 Chloride 101 101 100 Carbon Dioxide 32 31 31 BUN 10 8 8 Creatinine 0.46 L 0.45 L 0.48 L Estimated GFR > 60 > 60 > 60 BUN/Creatinine Ratio 21.7 17.8 16.7 Glucose 141 H 140 H 113 H Lactate Calcium 9.0 8.6 8.6 Total Bilirubin 0.6 AST 34 ALT 27 Alkaline Phosphatase 103 Total Protein 6.3 Albumin 3.1 L Globulin 3.2 Albumin/Globulin Ratio 1.0 Procalcitonin 1.19 H 01/08/24 08:50 WBC RBC Hgb Hct MCV MCH MCHC RDW Plt Count Neut % (Auto) Lymph % (Auto) [place] % (Auto) Eos % (Auto) Baso % (Auto) Neut # (Auto) Lymph # (Auto) [place] # (Auto) Eos # (Auto) Baso # (Auto) Sodium Potassium Chloride Carbon Dioxide BUN Creatinine Estimated GFR BUN/Creatinine Ratio Glucose Lactate 2.0 Calcium Total Bilirubin AST ALT Alkaline Phosphatase Total Protein Albumin Globulin Albumin/Globulin Ratio Procalcitonin [facility] Medical History Osteoporosis Sacral back pain Gait instability Herniated nucleus pulposus, lumbar Facet arthropathy, lumbar Surgical History Status post lumbar and lumbosacral fusion by anterior technique H/O: hysterectomy Hx of tonsillectomy Previous back surgery Family History Unknown No pertinent family history Social History household members: none Smoking Status: Never smoker Assessment & Plan Post-op Postoperative Procedures: Procedures Operation Date: 01/05/24 14:30 Actual Procedure Side Surgeon p RIGHT HEMICOLECTOMY Naveen Fermin MD Postoperative status narrative: 88-year-old woman postoperative day 3 status post right hemicolectomy for obstructing metastatic colon cancer. # leukocytosis-CT abdomen pelvis demonstrates a postoperative ileus no intra- abdominal abscess or signs of leak. Continue Zosyn and expand coverage to include vancomycin. # postoperative ileus-okay for sips and chips. Await return of bowel function. # code status-update to DNR following discussion with the patient and her daughter # disposition halfway facility [facility] when ready #pLovenox and SCDs Quality VTE Deep Vein Thrombosis/Pulmonary Embolism Present on Admission: No
--- NOTE | 2024-01-08 17:19 | OT.IPNOTE ---
Pt too tired and nauseous to get up at this time. Able to talk to pt and daughter of equipment needs. NO charge.
[2024-01-08] MEDS: DEXTROSE 5%-0.45% NS 1,000 ML 75 ML IV (17:22)
[2024-01-08] MEDS: ONDANSETRON 4 MG/2 ML INJ IV (17:30)
--- NOTE | 2024-01-08 18:23 | PM.CN ---
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 Taken emergently by gen surg for reight hemicolectomy on 01/04. Pathology still pending. Medicine consulted for management of HTN. Patient developed BP up to 234 systolic and takes no home meds fo HTN. She denies headache, visual symptoms or NV. Is quite anxious due to her recent cancer diagnosis. Pain is minimal currently but increases substantially when getting up. Meds Home Medications and Allergies Home Medications Medication Instructions Recorded Confirmed Type acetaminophen 500 mg tablet 500 mg PO Q6H PRN Pain (Scale 03/13/22 01/05/24 History (Tylenol Extra Strength) Score 1-3) mirabegron 25 mg tablet,extended 25 mg PO DAILY 08/16/22 01/05/24 History release 24 hr (Myrbetriq) Allergies Allergy/AdvReac Type Severity Reaction Status Date / Time No Known Drug Allergies Allergy Verified 01/05/24 12:28 Review of Systems Review of Systems Narrative: All other systems reviewed with the patient and are negative unless otherwise stated. Exam Vital Signs (past 8 hours): - 01/08/24 11:00 01/08/24 14:00 01/08/24 14:04 Temperature 97.4 F L Pulse Rate 95 H 79 Respiratory Rate 21 Blood Pressure 156/69 H 189/93 H Pulse Oximetry 97 95 Oxygen Flow Rate 0 01/08/24 14:27 01/08/24 14:36 01/08/24 14:36 Temperature Pulse Rate 78 Respiratory Rate 24 Blood Pressure 188/82 H 156/69 H Pulse Oximetry 94 Oxygen Flow Rate 01/08/24 14:52 01/08/24 15:00 Temperature Pulse Rate 80 Respiratory Rate 18 Blood Pressure 172/76 H Pulse Oximetry Oxygen Flow Rate Fraction of Inspired Oxygen 28 SaO2/FiO2 Ratio 357 Oxygen Delivery Method Room Air Oxygen Flow Rate 0 Narrative Exam Narrative: GEN: no acute distress, anxious HEENT: moist mucous membranes, PERRL NECK: trachea midline, no JVD CV: regular rate and rhythm, no murmurs PULM: clear bilaterally ABD: soft, postop dressings in place, nondistended, no organomegaly EXT: warm and well perfused with no edema NEURO: awake, alert, oriented, no focal deficits Objective Labs 01/08/24 04:08 01/08/24 08:30 Labs: Laboratory Results - last 24 hr 01/07/24 01/08/24 01/08/24 21:08 04:08 08:30 WBC 22.2 H 21.2 H RBC 3.65 L 3.79 L Hgb 10.9 L 11.2 L Hct 33.3 L 34.7 L MCV 91.3 91.7 MCH 29.9 29.6 MCHC 32.7 32.3 RDW 13.0 12.8 Plt Count 220 205 Neut % (Auto) 87.9 H 90.1 H Lymph % (Auto) 4.5 L 4.1 L [place] % (Auto) 6.4 5.4 Eos % (Auto) 1.0 L 0.2 L Baso % (Auto) 0.2 0.2 Neut # (Auto) 54768 H 55927 H Lymph # (Auto) 1000 L 900 L [place] # (Auto) 1400 H 1100 H Eos # (Auto) 200 0 Baso # (Auto) 0 0 Sodium 134 L 135 L 134 L Potassium 3.6 3.6 3.4 Chloride 101 101 100 Carbon Dioxide 32 31 31 BUN 10 8 8 Creatinine 0.46 L 0.45 L 0.48 L Estimated GFR > 60 > 60 > 60 BUN/Creatinine Ratio 21.7 17.8 16.7 Glucose 141 H 140 H 113 H Lactate Calcium 9.0 8.6 8.6 Total Bilirubin 0.6 AST 34 ALT 27 Alkaline Phosphatase 103 Total Protein 6.3 Albumin 3.1 L Globulin 3.2 Albumin/Globulin Ratio 1.0 Procalcitonin 1.19 H 01/08/24 08:50 WBC RBC Hgb Hct MCV MCH MCHC RDW Plt Count Neut % (Auto) Lymph % (Auto) [place] % (Auto) Eos % (Auto) Baso % (Auto) Neut # (Auto) Lymph # (Auto) [place] # (Auto) Eos # (Auto) Baso # (Auto) Sodium Potassium Chloride Carbon Dioxide BUN Creatinine Estimated GFR BUN/Creatinine Ratio Glucose Lactate 2.0 Calcium Total Bilirubin AST ALT Alkaline Phosphatase Total Protein Albumin Globulin Albumin/Globulin Ratio Procalcitonin [facility] Medical History Osteoporosis Sacral back pain Gait instability Herniated nucleus pulposus, lumbar Facet arthropathy, lumbar Surgical History Status post lumbar and lumbosacral fusion by anterior technique H/O: hysterectomy Hx of tonsillectomy Previous back surgery Family History Unknown No pertinent family history Social History household members: none Tobacco & Substance Use Smoking Status: Never smoker Assessment & Plan Assessment & Plan narrative: # hypertensive urgency -SBP up to 200's -start losartan 25mg BID -labetalol IV PRN for SBP >180 -likely due to anxiety from cancer dx, pain -continue pain meds for postop pain -add ativan PRN for anxiety # newly diagnosed metastatic colon cancer s/p R hemicolectomy -underwent palliative resection on 01/04 with gen surg -gen surg to manage -path pending # questionable sepsis -WBC 21, temp to 101F -CXR negative, UA with bacteria but no pyuria -urine culture with e. coli and staph simulans -f/up blood cultures -continue vanc and zosyn for now # goals of care -patient thinking about whether she would want treatment or not -I said given her age and poor functional status at baseline, chemo would not be recommended -continue discussions with goal for hospice Medicine will continue to follow. Thank you for allowing us to participate in the care of this patient. Should you have any questions, do not hesitate to speak with us directly or call us.
[2024-01-08] MEDS: LOSARTAN 25 MG TABLET PO (21:16)
[2024-01-09] VITALS (34 sets, daily range): BP systolic 160–213; BP diastolic 69–127; PULSE 71–93; RESP 16–18; TEMP 36.3–37.1; O2SAT 93–100
[2024-01-09] MEDS: LABETALOL 20 MG/4 ML SYRINGE 10 MG IV ×4 (00:24→17:43)
[2024-01-09] MEDS: HYDROMORPHONE 0.5 MG INJ IV (03:24)
[2024-01-09 05:09] LABS: Add Manual Diff / Slide Review NO; Basophils Absolute Auto 0 /uL (0-100); Basophils Percent Auto 0.2 % (0-2); Eosinophils Absolute Auto 500 /uL (0-450); Eosinophils Percent Auto 2.3 % (2-4); Hematocrit 33.3 % (36-46); Hemoglobin 10.8 g/dL (12.0-16.0); Lymphocytes Absolute Auto 1300 /uL (1100-4500); Lymphocytes Percent Auto 6.5 % (25-40); Mean Corpuscular HGB Conc 32.3 % (30-36); Mean Corpuscular Hemoglobin 29.4 PG (26-34); Mean Corpuscular Volume 91.1 fL (80-100); Monocytes Absolute Auto 1900 /uL (0-900); Monocytes Percent Auto 9.4 % (3-14); Neutrophils Absolute Auto 16900 /uL (1500-7000); Neutrophils Percent Auto 81.6 % (50-75); Platelet Count 256 X10^3/uL (150-400); Red Blood Cell Count 3.65 X10^6/uL (4.0-5.2); Red Cell Distribution Width 12.8 % (11.6-14.8); White Blood Cell Count 20.7 X10^3/uL (4.5-11.0)
[2024-01-09 05:26] LABS: Alanine Aminotransferase 22 IU/L (<35); Alkaline Phosphatase 111 U/L (38-126); Aspartate Aminotransferase 26 IU/L (14-36); BUN Creatinine Ratio 17.6 (6-22); Bilirubin Total 0.6 mg/dL (0.2-1.3); Blood Urea Nitrogen 9 mg/dL (7-17); Calcium 8.7 mg/dL (8.4-10.2); Carbon Dioxide 29 mmol/L (22-32); Chloride 100 mmol/L (98-107); Estimated Glomerular Filt Rate > 60 mL/min (>60); Globulin 3.1 g/dL (1.7-4.1); Glucose 131 mg/dL (80-110); HEMOLYSIS < 15 (0-50); Potassium 3.5 mmol/L (3.4-5.1); Sodium 133 mmol/L (137-145); Total Protein 6.1 g/dL (6.3-8.2)
[2024-01-09] MEDS: PIPERACILLIN/TAZO 3.375 GM in SODIUM CHLORIDE 0.9% 100 ML IV ×3 (06:21→21:06)
[2024-01-09] MEDS: ENOXAPARIN 40 MG/0.4 ML SYRINGE SUBCUT (08:56)
[2024-01-09] MEDS: LOSARTAN 25 MG TABLET PO ×2 (08:56→12:03)
[2024-01-09] MEDS: AMLODIPINE 5 MG TABLET PO (08:56)
[2024-01-09] MEDS: SODIUM CHLORIDE 0.9% FLUSH 10 ML IV ×2 (08:57→21:04)
--- NOTE | 2024-01-09 10:40 | PT.IPTN ---
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) Unspecified intestinal obstruction, unspecified as to partial versus complete obstruction (01/05/24) Surgery Performed Operation Date: 01/05/24 14:30 Actual Procedures p RIGHT HEMICOLECTOMY - Naveen Fermin MD Physical Therapy Treatment Note M2 PT-IP Current Condition Start: 01/06/24 09:07 Freq: NEEDED Status: Active Protocol: Document 01/06/24 10:15 MB (Rec: 01/06/24 10:48 MB [id number]) Physical Therapy Current Condition Current Condition Evaluation Date 01/06/24 Treatment Diagnosis R hemicolectomy d/t cecal mass , lymphadenopathy, hepatic mass M3 PT-IP Subjective Start: 01/06/24 09:07 Freq: NEEDED Status: Active Protocol: Document 01/09/24 10:59 TS (Rec: 01/09/24 11:07 TS [id number]) Subjective Physical Therapy Visit Type Type Treatment Note Visit Start Time 10:40 Visit Stop Time 10:59 Notes BP 222/86, 213/94 supine 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 Therapy Pain Assessment Pain When Pain Assessed During Mobility Pain Present Pain Present Pain Reported M4 PT-IP Mobility and Gait Start: 01/06/24 09:07 Freq: NEEDED Status: Active Protocol: Document 01/09/24 10:59 TS (Rec: 01/09/24 11:07 TS [id number]) PT-Bed Mobility Assessment Rolling Type of Rolling Log Rolling Level of Assist Moderate Assistance,1 Person Assistance Supine to Sit Supine to Sit Moderate Assistance,1 Person Assistance Scooting Scooting to Edge of Bed Minimal Assistance PT-Transfer Assessment Sit to and From Stand Sit to and from Stand Contact Guard Assistance Equipment Transfer Assistive Device Gait Belt,Front Wheeled Walker Orthotic/Prosthetic Devices or Brace: No Transfers Transfer Destination Chair Transfer Technique Stand Step Pivot Transfer Ability Level of Assist Contact Guard Assistance Comments Mobility Comments Pt resting in bed, Spo2 94% on RA, per nursing pt's o2 desats with mobility, HR 87. Her BP at rest is 222/86 and 213/94 at rest. Pt agreed to sit up to chair. Logroll to L side ModA with cues for handrails, pt tends to grab onto therpaist. Supine to sit ModA with max cues for sequencing. STS from bed CGA with FWW. Stand step pivot to chair CGA with therapist managing lines. Pt was left in chair, daugther in room, all needs met. Gait Assessment Gait Gait Assistance Required: Contact Guard Assist,1 Person Assist Distance (Feet) 5 Able to Maintain Weight Bearing Status Yes During Gait Assistive Devices Assistive Device Gait Belt,Front Wheeled Walker Orthotic/Prosthetic Devices or Brace: No Gait Deviations General Gait Pattern Antalgic,Ataxic,Decreased Stride Length,Decreased Feet Clearance,Flexed Trunk,Step-to Gait,Wide Based Gait Factors Limiting Gait Function Factors Limiting Gait Function Decreased Activity Tolerance, Decreased Strength,Difficulty Following Directions,Limited Range of Motion,Pain,Poor Balance,Poor Safety Awareness Comments Gait Comments See mobility comments PT-Balance Assessment Sitting Balance and Reactions Static Sitting Balance Ability Good Dynamic Sitting Balance Ability Good Standing Balance and Reactions Static Standing Balance Ability Fair Dynamic Standing Balance Ability Fair Device Used RW M5 PT-IP Objective Assessments Start: 01/06/24 09:07 Freq: NEEDED Status: Active Protocol: Document 01/06/24 10:15 MB (Rec: 01/06/24 10:48 MB [id number]) Orientation Orientation/Cognition Level of Alertness Alert Orientation Name,Age,Birthday,Month,Date, Place,Situation Language Function Ability No Deficits Noted Safety Awareness Decreased Safety Awareness Memory Description No Deficits Noted Gross Range of Motion Upper Extremity ROM Impairments Defer to OT Lower Extremity ROM Assessment Within Functional Limits Strength Comments Strength Comments Functional strength sitting EOB and then pt tends to keep legs flexed with standing Sensation Assessment Sensation Gross Sensation WNL M6 PT-IP Treatment Start: 01/06/24 09:07 Freq: NEEDED Status: Active Protocol: Document 01/09/24 10:59 TS (Rec: 01/09/24 11:07 TS [id number]) Physical Therapy Treatment Education Education Provided Precautions,Post-Op Packet, Safety M7 PT-IP Assessment and Plan Start: 01/06/24 09:07 Freq: NEEDED Status: Active Protocol: Document 01/09/24 10:59 TS (Rec: 01/09/24 11:07 TS [id number]) PT Summary Assessment and Plan Potential Rehabilitation Potential Good Summary Impairments Pain,Strength,Balance,Bed Mobility,Transfers,Gait, Activity Tolerance Progress Towards Goals Slow Progress due to Pain,Slow Progress due to Activity Tolerance Assessment Summary [place] continues to be limited her activity. She continues to require ModA for most bed mobility and max cues for sequencing. She continues to transfer to chair with use of FWW. Did not progress gait further this session due to high BP. PT continues to recommend SNF at this time. Goals Bed Mobility Goal Independent Transfer Goal Independent,Front Wheeled Walker Gait Goal Independent,Front Wheel Walker Gait Distance 75 Other Goals Pt will ascend and descend 2 steps with rail if available at home to allow safe home entrance. Days to Meet Goals 5 Frequency of Treatment Frequency Of Treatment Once a Day Treatment Plan Physical Therapy Treatment Plan Bed Mobility Training,Transfer Training,Gait Training, Therapeutic Exercise,Balance Retraining,Post Op Education, Discharge Planning,Hot or Cold Pack,Neuromuscular Re-ed, Coordination Retraining,Manual Therapy Precautions Abdominal Surgery Precautions Log Roll,Lifting Restrictions, Gait Belt above Incisional Area Weight Bearing Status Weight Bearing Status Weight Bear as Tolerated Recommendations To Nursing Amount of Assist Needed 1 Person Assist Discharge Recommendations PT Discharge Recommendations SNF Rehab Transportation Needs at Discharge Private Vehicle,Wheelchair/ Cabulance
[2024-01-09] MEDS: VANCOMYCIN 1,250 MG/250 ML PIGGYBACK 250 MG IV ×2 (10:48→21:04)
[2024-01-09] MEDS: diphenhydrAMINE 50 MG/ML VIAL 25 MG IV (12:03)
--- NOTE | 2024-01-09 14:25 | OT.IPNOTE ---
Pt tired from just having Benedryl abd just wanting to sleep at this time. NO charge. To go over energy conservation strategies with pt tomorrow.
--- NOTE | 2024-01-09 14:32 | PM.PN.1 ---
Subjective Subjective Interval history: Blood pressures still quite high up to 210 systolic. Increased losartan to 50mg BID and added amlodipine. Continue labetalol IV PRN. Patient denies symptoms and is awaiting SNF. Not interested in hospice at this time. Exam Vital Signs (past 8 hours): - 01/09/24 07:00 01/09/24 07:45 01/09/24 08:00 Temperature Pulse Rate 79 79 Respiratory Rate Blood Pressure Pulse Oximetry 99 96 Oxygen Delivery Method Nasal Cannula Oxygen Flow Rate 01/09/24 08:50 01/09/24 08:50 01/09/24 08:56 Temperature 98.1 F Pulse Rate 83 83 82 Respiratory Rate 16 Blood Pressure 192/88 H 192/88 H Pulse Oximetry 99 99 Oxygen Delivery Method Oxygen Flow Rate 01/09/24 09:00 01/09/24 09:00 01/09/24 10:00 Temperature Pulse Rate 86 90 Respiratory Rate Blood Pressure Pulse Oximetry 99 99 93 Oxygen Delivery Method Nasal Cannula Oxygen Flow Rate 2 01/09/24 11:05 01/09/24 11:31 01/09/24 11:40 Temperature Pulse Rate 85 93 H 71 Respiratory Rate Blood Pressure 209/88 H 210/91 H 173/72 H Pulse Oximetry Oxygen Delivery Method Oxygen Flow Rate 01/09/24 11:41 01/09/24 12:03 01/09/24 13:00 Temperature Pulse Rate 73 71 Respiratory Rate 18 Blood Pressure 173/72 H 173/72 H Pulse Oximetry 95 93 Oxygen Delivery Method Room Air Oxygen Flow Rate Fraction of Inspired Oxygen 28 SaO2/FiO2 Ratio 357 Oxygen Delivery Method Room Air Oxygen Flow Rate 2 Narrative Exam Narrative: GEN: no acute distress HEENT: moist mucous membranes, PERRL NECK: trachea midline, no JVD CV: regular rate and rhythm, no murmurs PULM: clear bilaterally ABD: soft, postop dressings in place, nondistended, no organomegaly EXT: warm and well perfused with no edema NEURO: awake, alert, oriented, no focal deficits Objective Labs 01/09/24 03:44 01/09/24 03:44 Labs: Laboratory Results - last 24 hr 01/09/24 03:44 WBC 20.7 H RBC 3.65 L Hgb 10.8 L Hct 33.3 L MCV 91.1 MCH 29.4 MCHC 32.3 RDW 12.8 Plt Count 256 Neut % (Auto) 81.6 H Lymph % (Auto) 6.5 L [place] % (Auto) 9.4 Eos % (Auto) 2.3 Baso % (Auto) 0.2 Neut # (Auto) 19987 H Lymph # (Auto) 1300 [place] # (Auto) 1900 H Eos # (Auto) 500 H Baso # (Auto) 0 Sodium 133 L Potassium 3.5 Chloride 100 Carbon Dioxide 29 BUN 9 Creatinine 0.51 L Estimated GFR > 60 BUN/Creatinine Ratio 17.6 Glucose 131 H Calcium 8.7 Total Bilirubin 0.6 AST 26 ALT 22 Alkaline Phosphatase 111 Total Protein 6.1 L Albumin 3.0 L Globulin 3.1 Albumin/Globulin Ratio 1.0 PFSH Medical History Osteoporosis Sacral back pain Gait instability Herniated nucleus pulposus, lumbar Facet arthropathy, lumbar Surgical History Status post lumbar and lumbosacral fusion by anterior technique H/O: hysterectomy Hx of tonsillectomy Previous back surgery Family History Unknown No pertinent family history Social History household members: none Smoking Status: Never smoker Assessment & Plan Assessment & Plan narrative: # hypertensive urgency -SBP up to 200's -increase losartan to 50mg BID and add amlodipine 5mg daily -labetalol IV PRN for SBP >180 -likely due to anxiety from cancer dx, pain -continue pain meds for postop pain -add ativan PRN for anxiety # newly diagnosed metastatic colon cancer s/p R hemicolectomy -underwent palliative resection on 01/04 with gen surg -gen surg to manage -path pending # questionable sepsis -WBC 21, temp to 101F -CXR negative, UA with bacteria but no pyuria -urine culture with e. coli and staph simulans -blood cultures NG at 24 hours -continue vanc and zosyn for now, will stop if BCx negative at 48 hours # goals of care -patient thinking about whether she would want treatment or not -I said given her age and poor functional status at baseline, chemo would not be recommended -she is not interested in hospice at this time -plan for SNF in 1-2 days Medicine will continue to follow. Thank you for allowing us to participate in the care of this patient. Should you have any questions, do not hesitate to speak with us directly or call us. Quality VTE Deep Vein Thrombosis/Pulmonary Embolism Present on Admission: No
--- NOTE | 2024-01-09 15:14 | CM.DPC ---
DCP Cont. Reviewed EMR and team rounds for status updates. Per Dr. Fermin, pt may be ready for d/c tomorrow if she is medically stable. Plan is to d/c to SNF rehab, [facility]. Will monitor closely in the am for d/c decision and update [facility] either way.
[2024-01-09] MEDS: ACETAMINOPHEN 325 MG TABLET 650 MG PO (15:47)
[2024-01-09] MEDS: OXYCODONE IR 5 MG TABLET PO (15:48)
--- NOTE | 2024-01-09 18:30 | PM.PNPO.1 ---
Subjective Subjective Date Patient Seen: 01/09/24 Time Patient Seen: 18:30 Interval history: No acute overnight events. Pain improved from yesterday. No flatus or bowel movement. Hypertension and tachycardia improved Exam Vital Signs (past 8 hours): - 01/09/24 11:05 01/09/24 11:31 01/09/24 11:40 Temperature Pulse Rate 85 93 H 71 Respiratory Rate Blood Pressure 209/88 H 210/91 H 173/72 H Pulse Oximetry Oxygen Delivery Method Oxygen Flow Rate 01/09/24 11:41 01/09/24 12:03 01/09/24 13:00 Temperature Pulse Rate 73 71 Respiratory Rate 18 Blood Pressure 173/72 H 173/72 H Pulse Oximetry 95 93 Oxygen Delivery Method Room Air Oxygen Flow Rate 01/09/24 16:00 01/09/24 17:00 01/09/24 17:43 Temperature 97.4 F L Pulse Rate 87 86 Respiratory Rate 18 Blood Pressure 184/75 H 206/84 H Pulse Oximetry 95 95 Oxygen Delivery Method Room Air Oxygen Flow Rate 0 01/09/24 17:57 Temperature Pulse Rate 73 Respiratory Rate Blood Pressure 174/72 H Pulse Oximetry Oxygen Delivery Method Oxygen Flow Rate Fraction of Inspired Oxygen 28 SaO2/FiO2 Ratio 357 Oxygen Delivery Method Room Air Oxygen Flow Rate 0 Narrative Exam Narrative: General elderly woman alert oriented no distress Chest nonlabored respiration no audible wheezing Abdomen distended appropriately tender to palpation. Objective Labs 01/09/24 03:44 01/09/24 03:44 Labs: Laboratory Results - last 24 hr 01/09/24 03:44 WBC 20.7 H RBC 3.65 L Hgb 10.8 L Hct 33.3 L MCV 91.1 MCH 29.4 MCHC 32.3 RDW 12.8 Plt Count 256 Neut % (Auto) 81.6 H Lymph % (Auto) 6.5 L [place] % (Auto) 9.4 Eos % (Auto) 2.3 Baso % (Auto) 0.2 Neut # (Auto) 40956 H Lymph # (Auto) 1300 [place] # (Auto) 1900 H Eos # (Auto) 500 H Baso # (Auto) 0 Sodium 133 L Potassium 3.5 Chloride 100 Carbon Dioxide 29 BUN 9 Creatinine 0.51 L Estimated GFR > 60 BUN/Creatinine Ratio 17.6 Glucose 131 H Calcium 8.7 Total Bilirubin 0.6 AST 26 ALT 22 Alkaline Phosphatase 111 Total Protein 6.1 L Albumin 3.0 L Globulin 3.1 Albumin/Globulin Ratio 1.0 PFSH Medical History Osteoporosis Sacral back pain Gait instability Herniated nucleus pulposus, lumbar Facet arthropathy, lumbar Surgical History Status post lumbar and lumbosacral fusion by anterior technique H/O: hysterectomy Hx of tonsillectomy Previous back surgery Family History Unknown No pertinent family history Social History household members: none Smoking Status: Never smoker Assessment & Plan Post-op Postoperative Procedures: Procedures Operation Date: 01/05/24 14:30 Actual Procedure Side Surgeon p RIGHT HEMICOLECTOMY Naveen Fermin MD Postoperative status narrative: 88-year-old woman postoperative day 4 status post right hemicolectomy for obstructing metastatic colon cancer. # leukocytosis-slight downtrending WBC 20.7 today from 22. Remains afebrile hemodynamically stable. CT yesterday demonstrates ileus no sign of intestinal leak. # postoperative ileus-okay for sips and chips. Await return of bowel function. #pLovenox and SCDs Quality VTE Deep Vein Thrombosis/Pulmonary Embolism Present on Admission: No
[2024-01-09] MEDS: LOSARTAN 25 MG TABLET 50 MG PO (21:03)
[2024-01-10] VITALS (16 sets, daily range): BP systolic 139–197; BP diastolic 65–82; PULSE 77–94; RESP 15–20; TEMP 35.8–37.2; O2SAT 92–95
[2024-01-10 04:41] LABS: Add Manual Diff / Slide Review NO; Basophils Absolute Auto 100 /uL (0-100); Basophils Percent Auto 0.7 % (0-2); Eosinophils Absolute Auto 700 /uL (0-450); Eosinophils Percent Auto 4.8 % (2-4); Hemoglobin 10.5 g/dL (12.0-16.0); Lymphocytes Absolute Auto 1400 /uL (1100-4500); Lymphocytes Percent Auto 9.8 % (25-40); Mean Corpuscular HGB Conc 32.6 % (30-36); Mean Corpuscular Hemoglobin 29.6 PG (26-34); Mean Corpuscular Volume 90.6 fL (80-100); Monocytes Absolute Auto 1900 /uL (0-900); Monocytes Percent Auto 13.5 % (3-14); Neutrophils Absolute Auto 10200 /uL (1500-7000); Neutrophils Percent Auto 71.2 % (50-75); Platelet Count 246 X10^3/uL (150-400); Red Blood Cell Count 3.54 X10^6/uL (4.0-5.2); Red Cell Distribution Width 12.9 % (11.6-14.8); White Blood Cell Count 14.4 X10^3/uL (4.5-11.0)
[2024-01-10 05:09] LABS: Alanine Aminotransferase 18 IU/L (<35); Albumin 2.7 g/dL (3.5-5.0); Albumin Globulin Ratio 0.9 (1.0-2.8); Alkaline Phosphatase 102 U/L (38-126); Aspartate Aminotransferase 26 IU/L (14-36); BUN Creatinine Ratio 14.3 (6-22); Bilirubin Total 0.5 mg/dL (0.2-1.3); Blood Urea Nitrogen 6 mg/dL (7-17); Calcium 8.4 mg/dL (8.4-10.2); Carbon Dioxide 30 mmol/L (22-32); Chloride 101 mmol/L (98-107); Estimated Glomerular Filt Rate > 60 mL/min (>60); Globulin 2.9 g/dL (1.7-4.1); Glucose 153 mg/dL (80-110); HEMOLYSIS < 15 (0-50); Potassium 2.9 mmol/L (3.4-5.1); Sodium 133 mmol/L (137-145); Total Protein 5.6 g/dL (6.3-8.2)
[2024-01-10] MEDS: PIPERACILLIN/TAZO 3.375 GM in SODIUM CHLORIDE 0.9% 100 ML IV (06:24)
--- NOTE | 2024-01-10 08:49 | P.PN_ITS ---
Subjective Subjective Interval history: Patient feeling well and is in good spirits today. Surgery advancing diet to clears. BP much better at 130-140's systolic. Will deescalate abx as WBC downtrending and all cultures negative other than UTI. Exam Vital Signs (past 8 hours): - 01/09/24 07:00 01/09/24 07:45 01/09/24 08:00 Temperature Pulse Rate 79 79 Respiratory Rate Blood Pressure Pulse Oximetry 99 96 Oxygen Delivery Method Nasal Cannula Oxygen Flow Rate 01/09/24 08:50 01/09/24 08:50 01/09/24 08:56 Temperature 98.1 F Pulse Rate 83 83 82 Respiratory Rate 16 Blood Pressure 192/88 H 192/88 H Pulse Oximetry 99 99 Oxygen Delivery Method Oxygen Flow Rate 01/09/24 09:00 01/09/24 09:00 01/09/24 10:00 Temperature Pulse Rate 86 90 Respiratory Rate Blood Pressure Pulse Oximetry 99 99 93 Oxygen Delivery Method Nasal Cannula Oxygen Flow Rate 2 01/09/24 11:05 01/09/24 11:31 01/09/24 11:40 Temperature Pulse Rate 85 93 H 71 Respiratory Rate Blood Pressure 209/88 H 210/91 H 173/72 H Pulse Oximetry Oxygen Delivery Method Oxygen Flow Rate 01/09/24 11:41 01/09/24 12:03 01/09/24 13:00 Temperature Pulse Rate 73 71 Respiratory Rate 18 Blood Pressure 173/72 H 173/72 H Pulse Oximetry 95 93 Oxygen Delivery Method Room Air Oxygen Flow Rate Fraction of Inspired Oxygen 28 SaO2/FiO2 Ratio 357 Oxygen Delivery Method Room Air Oxygen Flow Rate 2 Narrative Exam Narrative: GEN: no acute distress HEENT: moist mucous membranes, PERRL NECK: trachea midline, no JVD CV: regular rate and rhythm, no murmurs PULM: clear bilaterally ABD: soft, postop dressings in place, nondistended, no organomegaly EXT: warm and well perfused with no edema NEURO: awake, alert, oriented, no focal deficits Objective Labs 01/10/24 04:12 01/10/24 04:12 Labs: Laboratory Results - last 24 hr 01/10/24 04:12 WBC 14.4 H RBC 3.54 L Hgb 10.5 L Hct 32.0 L MCV 90.6 MCH 29.6 MCHC 32.6 RDW 12.9 Plt Count 246 Neut % (Auto) 71.2 Lymph % (Auto) 9.8 L [place] % (Auto) 13.5 Eos % (Auto) 4.8 H Baso % (Auto) 0.7 Neut # (Auto) 35493 H Lymph # (Auto) 1400 [place] # (Auto) 1900 H Eos # (Auto) 700 H Baso # (Auto) 100 Sodium 133 L Potassium 2.9 L Chloride 101 Carbon Dioxide 30 BUN 6 L Creatinine 0.42 L Estimated GFR > 60 BUN/Creatinine Ratio 14.3 Glucose 153 H Calcium 8.4 Total Bilirubin 0.5 AST 26 ALT 18 Alkaline Phosphatase 102 Total Protein 5.6 L Albumin 2.7 L Globulin 2.9 Albumin/Globulin Ratio 0.9 L PFSH Medical History Osteoporosis Sacral back pain Gait instability Herniated nucleus pulposus, lumbar Facet arthropathy, lumbar Surgical History Status post lumbar and lumbosacral fusion by anterior technique H/O: hysterectomy Hx of tonsillectomy Previous back surgery Family History Unknown No pertinent family history Social History household members: none Smoking Status: Never smoker Assessment & Plan Assessment & Plan narrative: # hypertensive urgency, improved -SBP up to 200's -increase losartan to 50mg BID and add amlodipine 5mg daily -labetalol IV PRN for SBP >180 -likely due to anxiety from cancer dx, pain -continue pain meds for postop pain -add ativan PRN for anxiety -BP now controlled in 130-140's, would continue BP meds on discharge # newly diagnosed metastatic colon cancer s/p R hemicolectomy -underwent palliative resection on 01/04 with gen surg -gen surg to manage -path pending # questionable sepsis, resolving -WBC 21, temp to 101F initially -CXR negative, UA with bacteria but no pyuria -urine culture with e. coli and staph simulans -blood cultures NG at 24 hours -WBC downtrending -deescalate abx to augmentin BID to complete 10 days of total abx for possible pyelo thru 01/13 # goals of care -patient thinking about whether she would want treatment or not -I said given her age and poor functional status at baseline, chemo would not be recommended -she is not interested in hospice at this time -plan for SNF in 1-2 days Medicine will sign off today. Thank you for allowing us to participate in the care of this patient. Should you have any further questions, do not hesitate to speak with us directly or call us. Quality VTE Deep Vein Thrombosis/Pulmonary Embolism Present on Admission: No
[2024-01-10] MEDS: POTASSIUM CHLORIDE 20 MEQ TAB 40 MEQ PO (09:01)
[2024-01-10] MEDS: AMLODIPINE 5 MG TABLET PO (09:01)
--- NOTE | 2024-01-10 09:01 | CM.DPC ---
DCP Cont. Reviewed EMR and team rounds for status updates. Per Dr. Fermin, pt will be medically cleared for d/c to [facility] tomorrow. Called [facility] and updated them. Will call them tomorrow to arrange for transport to the facility once d/c orders are completed.
[2024-01-10] MEDS: VANCOMYCIN TROUGH 1 REQUEST MISC (09:02)
[2024-01-10] MEDS: LOSARTAN 25 MG TABLET 50 MG PO ×2 (09:02→22:03)
[2024-01-10] MEDS: AMOXICILLIN/CLAV 875/125 MG 1 TAB PO ×2 (09:02→22:03)
[2024-01-10] MEDS: ENOXAPARIN 40 MG/0.4 ML SYRINGE SUBCUT (09:02)
[2024-01-10] MEDS: SODIUM CHLORIDE 0.9% FLUSH 10 ML IV ×2 (09:03→22:05)
--- NOTE | 2024-01-10 11:15 | PT.IPTN ---
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) Unspecified intestinal obstruction, unspecified as to partial versus complete obstruction (01/05/24) Surgery Performed Operation Date: 01/05/24 14:30 Actual Procedures p RIGHT HEMICOLECTOMY - Naveen Fermin MD Physical Therapy Treatment Note M2 PT-IP Current Condition Start: 01/06/24 09:07 Freq: NEEDED Status: Active Protocol: Document 01/06/24 10:15 MB (Rec: 01/06/24 10:48 MB [id number]) Physical Therapy Current Condition Current Condition Evaluation Date 01/06/24 Treatment Diagnosis R hemicolectomy d/t cecal mass , lymphadenopathy, hepatic mass M3 PT-IP Subjective Start: 01/06/24 09:07 Freq: NEEDED Status: Active Protocol: Document 01/10/24 12:50 TS (Rec: 01/10/24 12:59 TS [id number]) Subjective Physical Therapy Visit Type Type Treatment Note Visit Start Time 11:15 Visit Stop Time 11:38 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 M4 PT-IP Mobility and Gait Start: 01/06/24 09:07 Freq: NEEDED Status: Active Protocol: Document 01/10/24 12:50 TS (Rec: 01/10/24 12:59 TS [id number]) PT-Bed Mobility Assessment Rolling Type of Rolling Log Rolling Level of Assist Contact Guard Assistance,1 Person Assistance Scooting Scooting to Edge of Bed Minimal Assistance PT-Transfer Assessment Sit to and From Stand Sit to and from Stand Contact Guard Assistance Equipment Transfer Assistive Device Gait Belt,Front Wheeled Walker Orthotic/Prosthetic Devices or Brace: No Comments Mobility Comments BP in supine 189/77. Logroll to L side CGA with HOB elevated, pt demonstrates good carryover of sequencing. Scooting to EOB Chrystal with BUE support pushing from bed. STS from bed CGA with FWW. pt ambulated in room ~50'SBA with step to gait. Appears to have some buckling of knees and ambulates with soft knees and poor posture. She performed steps x2 on stepstool [place]rystal with use of FWW. Pt was left in bed, all needs met, daugther in room, RN notified. Gait Assessment Gait Gait Assistance Required: Contact Guard Assist,1 Person Assist Distance (Feet) 50 Able to Maintain Weight Bearing Status Yes During Gait Assistive Devices Assistive Device Gait Belt,Front Wheeled Walker Orthotic/Prosthetic Devices or Brace: No Gait Deviations General Gait Pattern Antalgic,Ataxic,Decreased Stride Length,Decreased Feet Clearance,Flexed Trunk,Step-to Gait,Wide Based Gait Factors Limiting Gait Function Factors Limiting Gait Function Decreased Activity Tolerance, Decreased Strength,Difficulty Following Directions,Limited Range of Motion,Pain,Poor Balance,Poor Safety Awareness Comments Gait Comments See mobility comments Stair Climbing Assessment Evaluation Level of Assist On Stairs Minimal Assistance,1 Person Assistance Devices Stair Climbing Assistive Devices Front Wheel Walker Technique/Endurance Stair Climbing Direction Ascend and Descend Stair Climbing Technique Step to Step Number of Steps Climbed 2 Comments Stair Climbing Comments See mobility comments PT-Balance Assessment Sitting Balance and Reactions Static Sitting Balance Ability Good Dynamic Sitting Balance Ability Good Standing Balance and Reactions Static Standing Balance Ability Fair Dynamic Standing Balance Ability Fair Device Used RW M5 PT-IP Objective Assessments Start: 01/06/24 09:07 Freq: NEEDED Status: Active Protocol: Document 01/06/24 10:15 MB (Rec: 01/06/24 10:48 MB [id number]) Orientation Orientation/Cognition Level of Alertness Alert Orientation Name,Age,Birthday,Month,Date, Place,Situation Language Function Ability No Deficits Noted Safety Awareness Decreased Safety Awareness Memory Description No Deficits Noted Gross Range of Motion Upper Extremity ROM Impairments Defer to OT Lower Extremity ROM Assessment Within Functional Limits Strength Comments Strength Comments Functional strength sitting EOB and then pt tends to keep legs flexed with standing Sensation Assessment Sensation Gross Sensation WNL M6 PT-IP Treatment Start: 01/06/24 09:07 Freq: NEEDED Status: Active Protocol: Document 01/10/24 12:50 TS (Rec: 01/10/24 12:59 TS [id number]) Physical Therapy Treatment Education Education Provided Precautions,Post-Op Packet, Safety M7 PT-IP Assessment and Plan Start: 01/06/24 09:07 Freq: NEEDED Status: Active Protocol: Document 01/10/24 12:50 TS (Rec: 01/10/24 12:59 TS [id number]) PT Summary Assessment and Plan Potential Rehabilitation Potential Good Summary Impairments Pain,Strength,Balance,Bed Mobility,Transfers,Gait, Activity Tolerance Assessment Summary Nighat is making some progress with her mobility this session . She is CGA for logroll to L side and demonstrates good carryover of sequencing. She performed STS CGA with FWW and has fair standing balance. She has some buckling of knees with gait and use of FWW but has no LOB. PT is recommending SNF at this time to progress funcitonal mobility and strength. Goals Bed Mobility Goal Independent Transfer Goal Independent,Front Wheeled Walker Gait Goal Independent,Front Wheel Walker Gait Distance 75 Other Goals Pt will ascend and descend 2 steps with rail if available at home to allow safe home entrance. Days to Meet Goals 5 Frequency of Treatment Frequency Of Treatment Once a Day Treatment Plan Physical Therapy Treatment Plan Bed Mobility Training,Transfer Training,Gait Training, Therapeutic Exercise,Balance Retraining,Post Op Education, Discharge Planning,Hot or Cold Pack,Neuromuscular Re-ed, Coordination Retraining,Manual Therapy Precautions Abdominal Surgery Precautions Log Roll,Lifting Restrictions, Gait Belt above Incisional Area Weight Bearing Status Weight Bearing Status Weight Bear as Tolerated Recommendations To Nursing Amount of Assist Needed 1 Person Assist Discharge Recommendations PT Discharge Recommendations SNF Rehab Transportation Needs at Discharge Private Vehicle,Wheelchair/ Cabulance
[2024-01-10] MEDS: LABETALOL 20 MG/4 ML SYRINGE 10 MG IV ×2 (12:49→23:46)
[2024-01-10] MEDS: DEXTROSE 5%-0.45% NS 1,000 ML 75 ML IV (12:50)
--- NOTE | 2024-01-10 14:39 | DIET.CONS2 ---
Dietary Inpatient Consultation Note Admission Date: 01/05/2024 13:19 88 y F admitted for hemicolectomy. Nutrition screened for LOS day 5 Pt with new dx of metastatic colon cancer. Met with pt at bedside. Pt's appetite outside of hospital has been normal with no weight loss. Lower than normal appetite currently. Unsure of UBW. No recent wt hx available. Typically has 2-3 meals/day. Encouraged adequate intake and reviewed protein sources to have at least 3x/day for adequate protein intake. Will continue to monitor diet advancement, PO intakes, and tolerance of protein supplement at meals. Diet: 01/10/24 Lunch Full Liquid Diet Diet Modifications: protein supplement with each meal Nutrition Percent Meal Consumed pt is NPO 01/08/24 18:00 Electronically Signed by: Hollie James 01/10/24 14:39 Clinical Dietitian [address] [address]
--- NOTE | 2024-01-10 15:28 | OT.IPNOTE ---
Pt refused as states too tired, just getting cleaned up and just got back to bed. To try again tomorrow. Pt states to be going to SNF tomorrow.
--- NOTE | 2024-01-10 19:08 | P.PN_ITS ---
Subjective Subjective Date Patient Seen: 01/10/24 Time Patient Seen: 19:08 Interval history: Significant improvement over the past 24 hours. Positive flatus and BM. Minimal abdominal pain. Weaned off of supplemental oxygen Exam Vital Signs (past 8 hours): - 01/10/24 11:57 01/10/24 12:49 01/10/24 13:00 Temperature Pulse Rate 82 82 Respiratory Rate 18 Blood Pressure 189/77 H 189/77 H Pulse Oximetry 95 Oxygen Delivery Method Room Air Oxygen Flow Rate 0 01/10/24 13:20 01/10/24 16:00 01/10/24 17:00 Temperature 97.5 F L Pulse Rate 79 Respiratory Rate 20 Blood Pressure 154/67 H 173/65 H Pulse Oximetry 95 95 Oxygen Delivery Method Room Air Oxygen Flow Rate 0 0 Fraction of Inspired Oxygen 28 SaO2/FiO2 Ratio 357 Oxygen Delivery Method Room Air Oxygen Flow Rate 0 Narrative Exam Narrative: General elderly woman alert oriented no acute distress Chest nonlabored respiration Abdomen soft mild distention. Appropriately tender to palpation. Objective Labs 01/10/24 04:12 01/10/24 04:12 Labs: Laboratory Results - last 24 hr 01/10/24 01/10/24 04:12 08:38 WBC 14.4 H RBC 3.54 L Hgb 10.5 L Hct 32.0 L MCV 90.6 MCH 29.6 MCHC 32.6 RDW 12.9 Plt Count 246 Neut % (Auto) 71.2 Lymph % (Auto) 9.8 L [place] % (Auto) 13.5 Eos % (Auto) 4.8 H Baso % (Auto) 0.7 Neut # (Auto) 28602 H Lymph # (Auto) 1400 [place] # (Auto) 1900 H Eos # (Auto) 700 H Baso # (Auto) 100 Sodium 133 L Potassium 2.9 L Chloride 101 Carbon Dioxide 30 BUN 6 L Creatinine 0.42 L Estimated GFR > 60 BUN/Creatinine Ratio 14.3 Glucose 153 H Calcium 8.4 Total Bilirubin 0.5 AST 26 ALT 18 Alkaline Phosphatase 102 Total Protein 5.6 L Albumin 2.7 L Globulin 2.9 Albumin/Globulin Ratio 0.9 L Vancomycin Trough 12.0 PFSH Medical History Osteoporosis Sacral back pain Gait instability Herniated nucleus pulposus, lumbar Facet arthropathy, lumbar Surgical History Status post lumbar and lumbosacral fusion by anterior technique H/O: hysterectomy Hx of tonsillectomy Previous back surgery Family History Unknown No pertinent family history Social History household members: none Smoking Status: Never smoker Assessment & Plan Post-op Postoperative Procedures: Procedures Operation Date: 01/05/24 14:30 Actual Procedure Side Surgeon p RIGHT HEMICOLECTOMY Naveen Fermin MD Postoperative status narrative: 88-year-old woman postoperative day 5 status post right hemicolectomy for an obstructing metastatic colon cancer. She is gradually recovering, her postoperative ileus has resolved over the past 24 hours. -full liquid diet -leukocytosis resolving. Blood in urinary cultures reviewed, significant only for the urinary tract infection which was present at admission. We will deescalate antibiotics to Augmentin last dose tomorrow -SCDs and Lovenox -anticipate discharge to [facility] rehab tomorrow [facility] Deep Vein Thrombosis/Pulmonary Embolism Present on Admission: No
[2024-01-11] VITALS (8 sets, daily range): BP systolic 164–187; BP diastolic 82–92; PULSE 80–84; RESP 16–17; TEMP 35.8–37; O2SAT 93–95
[2024-01-11 05:05] LABS: Add Manual Diff / Slide Review NO; Basophils Absolute Auto 0 /uL (0-100); Basophils Percent Auto 0.4 % (0-2); Eosinophils Absolute Auto 500 /uL (0-450); Eosinophils Percent Auto 4.6 % (2-4); Hematocrit 35.7 % (36-46); Hemoglobin 11.7 g/dL (12.0-16.0); Lymphocytes Absolute Auto 1600 /uL (1100-4500); Lymphocytes Percent Auto 14.5 % (25-40); Mean Corpuscular HGB Conc 32.8 % (30-36); Mean Corpuscular Hemoglobin 29.5 PG (26-34); Mean Corpuscular Volume 89.9 fL (80-100); Monocytes Absolute Auto 1700 /uL (0-900); Monocytes Percent Auto 15.7 % (3-14); Neutrophils Absolute Auto 7100 /uL (1500-7000); Neutrophils Percent Auto 64.8 % (50-75); Platelet Count 262 X10^3/uL (150-400); Red Blood Cell Count 3.97 X10^6/uL (4.0-5.2)
--- NOTE | 2024-01-11 09:11 | P.DS_ITS ---
History of Present Illness History of Present Illness Date Patient Seen: 01/11/24 Time Patient Seen: 13:46 Chief complaint: V/D/cramping T-14 Narrative: Marlen is an 88-year-old generally healthy woman who presents to [facility] Emergency Department with abdominal pain and emesis. For the past several months she has been having cramping abdominal pain which became acutely worse today. CT abdomen pelvis demonstrates a large obstructing cecal mass with mesenteric lymphadenopathy and hepatic metastasis. Previous malignancy includes breast cancer status post lumpectomy and radiation no chemotherapy. Previous abdominal surgery significant for hysterectomy and appendectomy. She has chronic back pain status post lumbar fusion. She lives alone generally manages her activities of daily living independently. She ambulates with a walker at home secondary to back pain. Her daughter who is with her in the emergency department today lives next door. Discharge Providers Provider Date of admission: 01/05/24 13:19 Discharge Date: 01/11/24 Primary care physician: Jessica Martines PA-C Consults: 01/05/24 13:15 Consult to Discharge Planning Routine Comment: Consult to Occupational Therapy Evaluate & Treat Comment: Physician Instructions: Evaluate and treat Consult to Physical Therapy Evaluate & Treat Comment: Physician Instructions: Evaluate and Treat 01/06/24 10:16 Consult to Physical Therapy Evaluate & Treat Comment: Physician Instructions: Evaluate and Treat 01/08/24 07:54 Consult to Hospitalist Service Stat Comment: Consulting Provider: [facility] Reason for consultation: HTN, Tachycardia. New diagnosis metastatic colon cancer Has provider been notified: No Discharge provider: Naveen Fermin MD Summary Hospital Course Discharge Diagnosis: Metastatic colon cancer Small-bowel obstruction Leukocytosis Hospital Course: Jaye was taken to the operating room January 05, 2024 underwent exploratory laparotomy and right hemicolectomy. Operative findings were significant for a large cecal tumor resulting in small-bowel obstruction, multiple pathologically enlarged nodes and a 10 cm mass in the in the dome of the liver. Postoperatively she had a prolonged ileus which ultimately resolved with conservative treatment. At discharge to a long-term facility she is tolerant of a diet, bowels are functioning, pain is well controlled. Surgical pathology demonstrates moderately differentiated invasive adenocarcinoma [id number], 6 of 12 lymph nodes positive. She will follow up with General surgery Clinic in 1 week for re-evaluation. Exam Vital Signs (past 8 hours): - 01/11/24 04:00 01/11/24 05:00 01/11/24 08:00 Temperature 96.5 F L 98.6 F Pulse Rate 80 80 Respiratory Rate 17 16 Blood Pressure 180/88 H 164/85 H Pulse Oximetry 94 93 95 Oxygen Delivery Method Room Air Oxygen Flow Rate 0 0 Fraction of Inspired Oxygen 28 SaO2/FiO2 Ratio 357 Oxygen Delivery Method Room Air Oxygen Flow Rate 0 Narrative Exam Narrative: General adult woman alert oriented no acute distress Chest nonlabored respiration Abdomen midline incision clean dry intact with parminder. Objective Labs 01/11/24 04:20 01/10/24 04:12 Labs: Laboratory Results - last 24 hr 01/10/24 01/11/24 08:38 04:20 WBC 11.0 RBC 3.97 L Hgb 11.7 L Hct 35.7 L MCV 89.9 MCH 29.5 MCHC 32.8 RDW 13.0 Plt Count 262 Neut % (Auto) 64.8 Lymph % (Auto) 14.5 L [place] % (Auto) 15.7 H Eos % (Auto) 4.6 H Baso % (Auto) 0.4 Neut # (Auto) 7100 H Lymph # (Auto) 1600 [place] # (Auto) 1700 H Eos # (Auto) 500 H Baso # (Auto) 0 Vancomycin Trough 12.0 PFSH Medical History Osteoporosis Sacral back pain Gait instability Herniated nucleus pulposus, lumbar Facet arthropathy, lumbar Surgical History Status post lumbar and lumbosacral fusion by anterior technique H/O: hysterectomy Hx of tonsillectomy Previous back surgery Family History Unknown No pertinent family history Social History household members: none Smoking Status: Never smoker Discharge Plan Discharge Plan Patient Disposition: SNF Transfer to: [facility] Discharge orders & Medications Prescriptions: New amlodipine [Norvasc] 5 mg Tablet 5 mg PO DAILY Qty: 30 0RF losartan 25 mg Tablet 50 mg PO BID Qty: 120 0RF ibuprofen 600 mg Tablet 600 mg PO Q6H PRN (Reason: Fever/Mild Pain (1-3)) Qty: 30 0RF Continued acetaminophen [Tylenol Extra Strength] 500 mg tablet 500 mg PO Q6H PRN (Reason: Pain (Scale Score 1-3)) Myrbetriq 25 mg tablet extended release 24 hr 25 mg PO DAILY Follow up/Referrals: Naveen Fermin MD [Physician] - 1 Week Diet/Activity/Treatments Diet: Diet as Tolerated Skin/Wound/Dressing Care Report to your healthcare provider any signs of infection, such as:: chills, fever, increased pain and unusual drainage Visit Report/Discharge Packet Instructions: DI for Small Bowel Obstruction, [facility]: Wound Care Stand Alone Forms: Patient Portal/API, Stroke Signs & Symptoms Discharge Data Primary Care Provider: Jessica Martines VTE Deep Vein Thrombosis/Pulmonary Embolism Present on Admission: No
--- NOTE | 2024-01-11 09:33 | CM.DPNOTE ---
DCP Note Reviewed EMR and team rounds for status updates. [facility] confirmed acceptance and transport at 12:30pm. Discharge order is in, discharge packet being completed. Plan: Discharge to [facility] at 12:30pm. CM team following for any pending discharge needs. CIELO Padilla
[2024-01-11] MEDS: POTASSIUM CHLORIDE 20 MEQ TAB 40 MEQ PO (09:45)
[2024-01-11] MEDS: AMOXICILLIN/CLAV 875/125 MG 1 TAB PO (09:46)
[2024-01-11] MEDS: LOSARTAN 25 MG TABLET 50 MG PO (09:46)
[2024-01-11] MEDS: AMLODIPINE 5 MG TABLET PO (09:46)
[2024-01-11] MEDS: ENOXAPARIN 40 MG/0.4 ML SYRINGE SUBCUT (09:46)
[2024-01-11] MEDS: SODIUM CHLORIDE 0.9% FLUSH 10 ML IV (09:47)
[2024-01-11] MEDS: OXYCODONE IR 5 MG TABLET PO (10:11)
== END 2024-01-11 12:15 | DRG 330 ==
LOC: ED 10:03 → AC 13:23 → ICU 13:40 → AC 01-09 13:24
PROVIDERS: Student in an Organized Health Care Education/Training Program; Surgery; Admitting Provider Surgery; Emergency Provider Emergency Medicine; PCP Student in an Organized Health Care Education/Training Program; Referring Provider Emergency Medicine; Visit Provider Surgery
PROC: 0DTF0ZZ Resection of Right Large Intestine, Open Approach (ICD-10-PCS; CPT 49000; principal; 2024-01-05 14:30)
DX: C18.0 Malignant neoplasm of cecum (principal); C77.2 Secondary and unspecified malignant neoplasm of intra-abdominal lymph nodes; C78.7 Secondary malignant neoplasm of liver and intrahepatic bile duct; K56.699 Other intestinal obstruction unspecified as to partial versus complete obstruction; C78.00 Secondary malignant neoplasm of unspecified lung; K91.89 Other postprocedural complications and disorders of digestive system; K56.7 Ileus, unspecified; N39.0 Urinary tract infection, site not specified; Z66 Do not resuscitate; Z85.3 Personal history of malignant neoplasm of breast; Z92.3 Personal history of irradiation; Z90.49 Acquired absence of other specified parts of digestive tract; Z90.710 Acquired absence of both cervix and uterus; G89.29 Other chronic pain; M54.9 Dorsalgia, unspecified; Z98.1 Arthrodesis status; I10 Essential (primary) hypertension; Y83.6 Removal of other organ (partial) (total) as the cause of abnormal reaction of the patient, or of later complication, without mention of misadventure at the time of the procedure; I16.0 Hypertensive urgency; B96.20 Unspecified Escherichia coli [E. coli] as the cause of diseases classified elsewhere; B95.7 Other staphylococcus as the cause of diseases classified elsewhere
CPT/HCPCS: 36415; 44160; 71045; 74177; 80048; 80053; 80202; 81001; 82378; 82550; 83605; 83690; 84145; 84484; 85025; 87040; 87077; 87086; 87186; 87797; 93005; 93010; 94760; 96361; 96365; 96375; 96376; 97116; 97161; 97166; 97530; 99223; 99284; C9290; J0136; J0330; J0696; J1100; J1170; J1200; J1650; J2270; J2405; J2543; J2704; J3010; J3490; Q9967